=== PATIENT | male | born 1960 | race Caucasian/White ===

== ENCOUNTER → 2020-03-14 | Outpatient (CLI) | payer BC ==
--- NOTE | 2020-03-14 14:07 | Diagnostic Imaging Report ---
INDICATION: Bilateral hip pain. TIME OF EXAM: 12:59 PM Hip joint spaces are fairly well maintained. Femoral acetabular alignment is normal bilaterally. Both femoral heads and necks are intact. Rami are intact. No fractures are seen. IMPRESSION: No acute bony abnormality is detected. Dictated by: Dictated on workstation # [id number]
== END ==
LOC: RAD FS 12:41
PROVIDERS: ATTEND Emergency Medicine
DX: M25.551 Pain in right hip (principal); M25.552 Pain in left hip
CPT/HCPCS: 73521

== ENCOUNTER → 2020-07-15 | Outpatient (CLI) | payer BC ==
[2020-07-15 13:26] LABS: HEMOGLOBIN 12.4 G/DL (13.3-17.7); MEAN CORPUSCULAR HEMOGLOBIN 31 PG (25-34); WHITE BLOOD COUNT 5.3 10^3/uL (4.3-11.0)
[2020-07-15 13:27] LABS: BASOPHILS % (AUTO) 1 % (0-10); EOSINOPHILS # (AUTO) 0.1 10^3/uL (0.0-0.3); EOSINOPHILS % (AUTO) 1 % (0-10); HEMATOCRIT 38 % (40-54); LYMPHOCYTES # (AUTO) 1.1 X 10^3 (1.0-4.0); LYMPHOCYTES % (AUTO) 20 % (12-44); MEAN CORPUSCULAR HGB CONC 33 G/DL (32-36); MEAN CORPUSCULAR VOLUME 95 FL (80-99); MEAN PLATELET VOLUME 10.9 FL (7.4-10.4); MONOCYTES # (AUTO) 0.6 X 10^3 (0.0-1.0); MONOCYTES % (AUTO) 11 % (0-12); NEUTROPHILS # (AUTO) 3.5 X 10^3 (1.8-7.8); NEUTROPHILS % (AUTO) 66 % (42-75); PLATELET COUNT 166 10^3/uL (130-400)
[2020-07-15 14:14] LABS: BUN/CREATININE RATIO 26; CARBON DIOXIDE 21 MMOL/L (21-32); CHLORIDE 103 MMOL/L (98-107); GFR ESTIMATED > 60; POTASSIUM 5.5 MMOL/L (3.6-5.0); SODIUM 137 MMOL/L (135-145)
[2020-07-15 14:15] LABS: ALANINE AMINOTRANSFERASE 27 U/L (0-55); ALBUMIN 4.7 GM/DL (3.2-4.5); ALKALINE PHOSPHATASE 64 U/L (40-136); AMYLASE 26 U/L (25-125); CALCIUM 9.9 MG/DL (8.5-10.1); GLUCOSE 106 MG/DL (70-105); LIPASE 14 U/L (8-78); TOTAL PROTEIN 7.4 GM/DL (6.4-8.2)
== END ==
LOC: RAD FS 12:24
PROVIDERS: ATTEND Emergency Medicine
DX: R11.0 Nausea (principal); R19.7 Diarrhea, unspecified; R10.11 Right upper quadrant pain
CPT/HCPCS: 36415; 80053; 82150; 83690; 85025

== ENCOUNTER 2020-12-23 22:41 | Emergency (ER) | payer BC ==
[~2020-12-23] VITALS: Ht 170.2 cm; Wt 107.5 kg
[2020-12-23] MEDS ORDERED: oxyCODONE/APAP 5/325MG (PERCOCET 5) TABLET ONE (22:57)
[2020-12-23] MEDS ORDERED: ORPHENADRINE 60 MG/2 ML (NORFLEX) AMP (ED ONLY) IM ONE (23:00)
[2020-12-23] MEDS ORDERED: oxyCODONE/APAP 7.5-325 MG (PERCOCET 7.5) TABLET PO ONE (23:00)
--- NOTE | 2020-12-23 23:04 | ED Back Pain ---
General Chief Complaint: Lower Extremity Stated Complaint: HIP PAIN Source of Information: Patient, EMS Exam Limitations: No Limitations History of Present Illness Date Seen by Provider: Dec 23, 2020 Time Seen by Provider: 22:50 Initial Comments Patient is a 60-year-old male who presents to the emergency department today with a chief complaint of posterior right hip pain/low back pain. Patient has had this pain ongoing for the last couple of days. He states it steadily increased. Patient denies any trauma, falls, twisting injuries. He has never had pain quite like this before. 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 Patient reports he is a diabetic has a history of renal failure has a history of hypertension. He states he took one of his postoperative pain pills and it helped "a little". He states he also took a muscle relaxer but cannot quite seem to get comfortable. Patient states he was not able to sleep last night because of the pain. He states he has a little bit of an ache in his right knee. But the pain does not seem to radiate down his leg to his foot. No problems with numbness in his groin. No falls no weakness in his right leg. Patient states that his urine has been all out of whack in recent days. He did have urinary tract infection several weeks ago and he states that his urine continues to have a foul smell. He denies dysuria, urgency or frequency. Patient states he also took a little Tylenol for his hip but it has not really helped either. All other review of systems reviewed and negative except as stated. Location: Other (lower lumbar, right posterior hip) Timing/Duration: 2-3 Days Severity: Severe Pain/Injury Location: Back Radiation: Other (right knee) Associated Symptoms: muscle spasms Allergies and Home Medications Allergies Coded Allergies: prochlorperazine (Verified Allergy, Unknown, 12/23/20) Home Medications Cyclobenzaprine HCl 10 Mg Tablet, 10 MG PO TID PRN for muscle spasm Prescribed by: JULIETA JOHNSON on 12/24/20 0027 Oxycodone HCl/Acetaminophen 1 Each Tablet, 1 TAB PO Q6H PRN for PAIN-MODERATE Prescribed by: JULIETA JOHNSON on 12/24/20 0028 Patient Home Medication List Home Medication List Reviewed: Yes Review of Systems Constitutional: no symptoms reported EENTM: no symptoms reported Respiratory: no symptoms reported Cardiovascular: no symptoms reported Gastrointestinal: no symptoms reported, other (post operative discomfort) Genitourinary: other (foul smelling urine) Musculoskeletal: other (posterior right hip pain) Skin: no symptoms reported Psychiatric/Neurological: No Symptoms Reported All Other Systems Reviewed Negative Unless Noted: Yes Physical Exam Vital Signs Capillary Refill : Height, Weight, BMI Height: '" Weight: lbs. oz. kg; BMI Method: General Appearance: WD/WN, Anxious, Moderate Distress HEENT: PERRL/EOMI Neck: Normal Inspection Cardiovascular: Regular Rate, Rhythm Respiratory: No Accessory Muscle Use, No Respiratory Distress Gastrointestinal: Soft, Tenderness (diffuse mild tenderness to palpation) Back: No Vertebral Tenderness Extremity: Normal Inspection, Normal Range of Motion, No Pedal Edema, Other (Patient has tenderness to palpation around the posterior superior iliac crest as well as over the sciatic nerve of the right hip. Patient has good range of motion to the right lower extremity without significant pain. No pain over the trochanter of the right hip. He has intact sensation and circulation to the right lower extremity. Normal dorsiflexion and plantarflexion of the right foot. DTRs were difficult to obtain in the right leg secondary to apprehension) Neurologic/Psychiatric: Alert, Oriented x3, No Motor/Sensory Deficits, Normal Mood/Affect Progress/Results/Core Measures Results/Orders Lab Results Laboratory Tests Test 12/23/20 23:07 Range/Units Glucometer 204 H 70-110 MG/DL My Orders Orders - JULIETA JOHNSON MD Orphenadrine Inj (Ed Only) (Norflex Inje (12/23/20 23:00) Oxycodone/Apap 7.5/325mg Tab (Percocet (12/23/20 23:00) Accucheck Stat ONCE (12/23/20 22:54) Ua Culture If Indicated (12/23/20 22:54) Oxycodone/Apap 5/325mg Tablet (Percocet (12/23/20 22:57) Oxycodone/Apap 5/325mg Tablet (Percocet (12/23/20 23:15) Rx-Oxycodone/Apap 5-325 Mg (Rx-Percocet (12/24/20 00:30) Medications Given in ED Current Medications Medications Dose Ordered Sig/Rosa Elena Route Start Time Stop Time Status Last Admin Dose Admin Orphenadrine Citrate 60 mg ONCE ONCE IM 12/23/20 23:00 12/23/20 23:01 DC 12/23/20 23:10 60 MG Oxycodone/ Acetaminophen 1 tab STK-MED ONCE .ROUTE 12/23/20 22:57 12/23/20 23:03 DC 12/23/20 23:11 2 TAB Progress Progress Note : Time: 00:23 Progress Note Patient reevaluated after medications and feels much better. I will not give him steroids at this time secondary to his diabetes and his hyperglycemia this evening. I have recommended that the patient use hksp-fqm-lxfsgtz pain patches as well as a heating pad. We will send him home with a prescription for pain medicine as well as some muscle relaxers. I have advised him to have close follow-up with his primary care physician, Dr. JOHNSON. He verbalizes understanding. All questions have been sought and answered. Urinalysis is still pending. Departure Impression Primary Impression: Sciatica of right side Disposition: 01 HOME, SELF-CARE Condition: Stable (ERASED) Departure-Patient Inst. Decision time for Depature: 00:24 Referrals: RYLEY JOHNSON DO (PCP/Family) Primary Care Physician Patient Instructions: Sciatica Exercises Add. Discharge Instructions: Take the pain medication as prescribed every 4-6 hours for pain. You can also take the muscle relaxers as prescribed every 8 hours as needed for muscle spasms and pain. Use qyqh-ace-upcihrs pain patches as needed as well and as directed on the package. Heating pads will also help this area. Follow-up with your primary care physician. . Scripts Cyclobenzaprine HCl (Cyclobenzaprine HCl) 10 Mg Tablet 10 MG PO TID PRN for muscle spasm, #12 TAB Prov: JULIETA JOHNSON MD 12/24/20 Oxycodone HCl/Acetaminophen (Percocet 7.5-325 mg Tablet) 1 Each Tablet 1 TAB PO Q6H PRN for PAIN-MODERATE MDD 4 TABS for 7 Days, #15 TAB Prov: JULIETA JOHNSON MD 12/24/20 JULIETA JOHNSON MD Dec 23, 2020 23:04
[2020-12-23] MEDS ORDERED: oxyCODONE/APAP 5/325MG (PERCOCET 5) TABLET PO ONE (23:15)
[2020-12-24] MEDS ORDERED: OXYC1TAB16 PO (00:27)
[2020-12-24] MEDS ORDERED: CYCL10TA9 PO (00:27)
[2020-12-24] MEDS ORDERED: RX-OXYCODONE/APAP 5-325 MG #4 TAB PK PO PRN (00:30)
[2020-12-24 01:40] VITALS: BP 146/70
[2020-12-24 15:51] LABS: CLARITY,URINE SLIGHTLY CLOUDY; COLOR,URINE ORANGE; GLUCOSE, URINE (UA) NEGATIVE (NEGATIVE); KETONES,URINE TRACE (NEGATIVE); NITRITE,URINE NEGATIVE (NEGATIVE); PROTEIN,URINE 1+ (NEGATIVE)
[2020-12-24 15:52] LABS: BACTERIA,URINE MODERATE /HPF; BILIRUBIN,URINE 1+ (NEGATIVE); GRANULAR CASTS,URINE 0-2 /LPF; LEUKOCYTE ESTERASE ,URINE NEGATIVE (NEGATIVE); RBC,URINE 0-2 /HPF
== END 2020-12-24 01:40 | disposition home or self-care (01) ==
LOC: EDUNIT# 22:41 → ER FS 22:42
DX: M54.41 Lumbago with sciatica, right side (principal); E11.649 Type 2 diabetes mellitus with hypoglycemia without coma; I10 Essential (primary) hypertension; Z88.8 Allergy status to other drugs, medicaments and biological substances
CPT/HCPCS: 81000; 82962; 87088

== ENCOUNTER → 2020-12-24 | Outpatient (CLI) | payer BC ==
[~2020-12-24] MED LIST: CYCL10TA9 PO; OXYC1TAB16 PO
== END ==
LOC: LAB FS 15:38
PROVIDERS: ATTEND Registered Nurse
DX: R30.0 Dysuria (principal)

== ENCOUNTER → 2021-04-27 | Outpatient (CLI) | payer BC ==
[2021-04-27 17:43] LABS: POTASSIUM 4.3 MMOL/L (3.6-5.0)
[2021-04-27 17:44] LABS: CALCIUM 8.4 MG/DL (8.5-10.1)
[2021-04-27 17:48] LABS: CREATININE SERUM 0.67 MG/DL (0.60-1.30)
== END ==
LOC: LABNPT 17:16
PROVIDERS: ATTEND Urology
DX: K65.1 Peritoneal abscess (principal)
CPT/HCPCS: 80048

== ENCOUNTER 2021-05-15 12:42 | Inpatient (IN) | payer BC ==
[2021-05-15] VITALS (7 sets, daily range): BP systolic 111–152; BP diastolic 60–79
[~2021-05-15] VITALS: Ht 170 cm; Wt 79.1 kg
[2021-05-15] MEDS ORDERED: PIPERACILLIN SODIUM/TAZOBACTAM 4.5 GM in NS (IVPB) 100 ML IV ONE (13:00)
--- NOTE | 2021-05-15 13:15 | Diagnostic Imaging Report ---
Indication: Shortness of breath. The patient is COVID 19 positive. No prior studies are available for comparison. There are changes of median sternotomy. Right upper extremity PICC line has tip overlying SVC. There is a moderate left pleural effusion. There appears to be some infiltrate in both bases. Upper lung miller are clear. No pneumothorax is seen. IMPRESSION: Moderate left-sided pleural effusion with bibasilar pulmonary infiltrates or atelectasis. Report was faxed to [facility] Infection Control by terri at 1:15PM. Dictated by: Dictated on workstation # [id number]
--- NOTE | 2021-05-15 13:40 | ED Respiratory ---
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 The patient states he was having an elective procedure on 05 May, and had a Covid test done while asymptomatic at that time, and this test was positive. Since then he has been feeling more more short of breath with coughing. Reportedly his oxygen sat uration was then the 60s to 70s. EMS placed him on a nonrebreather and give him a DuoNeb with improvement in his oxygen saturation to the 90s. He denies any personal history of blood clots in his legs or lungs. He is otherwise denying any other acute complaints. Of note, he gets his care from Dr. Rodrigues at [facility] in . He has a PICC line in place and says he gets two "antibiotics" multiple times a day with one of them being Micafungin. Allergies and Home Medications Allergies Coded Allergies: prochlorperazine (Verified Allergy, Unknown, 12/23/20) Patient Home Medication List Home Medication List Reviewed: Yes Review of Systems Review of Systems Constitutional: chills EENTM: No blurred vision Respiratory: cough, short of breath Cardiovascular: No chest pain Gastrointestinal: No abdominal pain, No diarrhea, No nausea, No vomiting Genitourinary: No dysuria Musculoskeletal: No back pain Skin: No rash Psychiatric/Neurological: Denies Anxiety, Denies Depressed Hematologic/Lymphatic: No Symptoms Reported Immunological/Allergic: no symptoms reported All Other Systems Reviewed Negative Unless Noted: Yes Past Dpbpliy-Yfyurd-Bqcvaz Hx Patient Social History Tobacco Use?: No Seasonal Allergies Seasonal Allergies: No Past Medical History Surgeries: Yes Abdominal, Appendectomy, CABG Respiratory: No Cardiac: Yes Hypertension Neurological: No Genitourinary: No Gastrointestinal: Yes Pancreatitis Musculoskeletal: No Endocrine: Yes Diabetes, Insulin dep HEENT: No Cancer: No Psychosocial: No Integumentary: No Blood Disorders: No Physical Exam Vital Signs - First Documented 05/15/21 12:45 Temp 36.8 Pulse 104 Resp 48 B/P (MAP) 128/71 (90) Pulse Ox 97 O2 Delivery OxyMask O2 Flow Rate 6.00 Capillary Refill : Height: '" Weight: lbs. oz. kg; 37.00 BMI Method: General Appearance: WD/WN, moderate distress HEENT: PERRL/EOMI, normal ENT inspection, pharynx normal Neck: non-tender, full range of motion, supple, normal inspection Respiratory: chest non-tender, respiratory distress, crackles, other (Tachypnea and accessory muscle use) Cardiovascular: no edema, no murmur, tachycardia Gastrointestinal: normal bowel sounds, non tender, soft; No guarding, No rebound Extremities: normal range of motion, non-tender, normal inspection, no pedal edema, no calf tenderness Neurologic/Psychiatric: no motor/sensory deficits, alert, normal mood/affect, oriented x 3 Skin: normal color, warm/dry Lymphatic: no adenopathy Focused Exam Lactate Level 05/15/21 13:15: Lactic Acid Level 2.03*H 05/15/21 15:50: Lactic Acid Level 2.12*H Lactic Acid Level Laboratory Tests Test 05/15/21 13:15 05/15/21 15:50 Lactic Acid Level 2.03 MMOL/L (0.50-2.00) *H 2.12 MMOL/L (0.50-2.00) *H Progress/Results/Core Measures Suspected Sepsis SIRS Temperature: Pulse: Respiratory Rate: Laboratory Tests 05/15/21 13:15: White Blood Count 8.0 Blood Pressure / Mean: 05/15/21 13:15: Lactic Acid Level 2.03*H 05/15/21 15:50: Lactic Acid Level 2.12*H Laboratory Tests 05/15/21 13:15: Creatinine 0.60, Platelet Count 371, Total Bilirubin 1.0 05/15/21 13:38: INR Comment 1.2 Results/Orders Lab Results Laboratory Tests Test 05/15/21 13:15 05/15/21 13:38 05/15/21 15:50 Range/Units White Blood Count 8.0 4.3-11.0 10^3/uL Red Blood Count 4.26 L 4.30-5.52 10^6/uL Hemoglobin 11.9 L 13.3-17.7 g/dL Hematocrit 36 L 40-54 % Mean Corpuscular Volume 85 80-99 fL Mean Corpuscular Hemoglobin 28 25-34 pg Mean Corpuscular Hemoglobin Concent 33 32-36 g/dL Red Cell Distribution Width 15.2 H 10.0-14.5 % Platelet Count 371 130-400 10^3/uL Mean Platelet Volume 11.4 9.0-12.2 fL Immature Granulocyte % (Auto) 0 % Neutrophils (%) (Auto) 85 H 42-75 % Lymphocytes (%) (Auto) 10 L 12-44 % Monocytes (%) (Auto) 5 0-12 % Eosinophils (%) (Auto) 0 0-10 % Basophils (%) (Auto) 0 0-10 % Neutrophils # (Auto) 6.8 1.8-7.8 X 10^3 Lymphocytes # (Auto) 0.8 L 1.0-4.0 X 10^3 Monocytes # (Auto) 0.4 0.0-1.0 X 10^3 Eosinophils # (Auto) 0.0 0.0-0.3 10^3/uL Basophils # (Auto) 0.0 0.0-0.1 10^3/uL Immature Granulocyte # (Auto) 0.0 0.0-0.1 10^3/uL Sodium Level 132 L 135-145 MMOL/L Potassium Level 3.3 L 3.6-5.0 MMOL/L Chloride Level 97 L 98-107 MMOL/L Carbon Dioxide Level 19 L 21-32 MMOL/L Anion Gap 16 H 5-14 MMOL/L Blood Urea Nitrogen 14 7-18 MG/DL Creatinine 0.60 0.60-1.30 MG/DL Estimat Glomerular Filtration Rate 137 BUN/Creatinine Ratio 23 Glucose Level 206 H 70-105 MG/DL Lactic Acid Level 2.03 *H 2.12 *H 0.50-2.00 MMOL/L Calcium Level 8.4 L 8.5-10.1 MG/DL Corrected Calcium 9.2 8.5-10.1 MG/DL Total Bilirubin 1.0 0.1-1.0 MG/DL Aspartate Amino Transf (AST/SGOT) 109 H 5-34 U/L Alanine Aminotransferase (ALT/SGPT) 79 H 0-55 U/L Alkaline Phosphatase 156 H 40-136 U/L Lactate Dehydrogenase 771 H 125-220 U/L Troponin I < 0.30 <0.30 NG/ML C-Reactive Protein 9.13 H <0.50 MG/DL Pro-B-Type Natriuretic Peptide 4074.0 H <75.0 PG/ML Total Protein 6.8 6.4-8.2 GM/DL Albumin 3.0 L 3.2-4.5 GM/DL Prothrombin Time 15.4 H 12.2-14.7 SEC INR Comment 1.2 0.8-1.4 Activated Partial Thromboplast Time 34 24-35 SEC D-Dimer 4.45 H 0.00-0.49 UG/ML My Orders Orders - CLIVE LIRIANO MD Cbc With Automated Diff (05/15/21 12:55) Comprehensive Metabolic Panel (05/15/21 12:55) Blood Culture (05/15/21 12:55) Protime With Inr (05/15/21 12:55) Partial Thromboplastin Time (05/15/21 12:55) Chest 1 View Ap/Pa Only (05/15/21 12:55) Ed Iv/Invasive Line Start (05/15/21 12:55) Ed Iv/Invasive Line Start (05/15/21 12:55) Vital Signs Adult Sepsis Patie Q15M (05/15/21 12:55) O2 (05/15/21 12:55) Lactic Acid Analyzer (05/15/21 12:55) Piperacillin Sodium/Tazobactam (Zosyn Vi (05/15/21 13:00) Vital Signs: Every 4 Hours (Or (05/15/21 12:55) Monitor-Rhythm Ecg Trace Only (05/15/21 12:55) Ferritin (05/15/21 12:55) LDH (05/15/21 12:55) Crp Fs (05/15/21 12:55) Troponin I Fs (05/15/21 12:55) Fibrin Degradation Products (05/15/21 12:55) Ekg Tracing (05/15/21 12:55) Probnp Fs (05/15/21 12:55) Covid-19 External Lab Results (05/15/21 13:56) Ct Angio Chest W (05/15/21 14:28) Iohexol Injection (Omnipaque 350 Mg/Ml 1 (05/15/21 14:45) Received Contrast (Hold Metformin- Contr (05/15/21 14:45) Sodium Chloride Flush (Catheter Flush Sy (05/15/21 14:45) Ns (Ivpb) (Sodium Chloride 0.9% Ivpb Bag (05/15/21 14:45) Dexamethasone Injection (Decadron Injec (05/15/21 16:30) Medications Given in ED Current Medications Medications Dose Ordered Sig/Rosa Elena Route Start Time Stop Time Status Last Admin Dose Admin Dexamethasone Sodium Phosphate 6 mg ONCE ONCE IV 05/15/21 16:30 05/15/21 16:31 DC 05/15/21 16:48 6 MG Iohexol 125 ml ONCE ONCE IV 05/15/21 14:45 05/15/21 14:46 DC 05/15/21 15:20 125 ML Piperacillin Sod/ Tazobactam Sod 4.5 gm/Sodium Chloride 100 ml @ 200 mls/hr ONCE ONCE IV 05/15/21 13:00 05/15/21 13:29 DC 05/15/21 13:47 200 MLS/HR Sodium Chloride 10 ml NEEDED PRN IV 05/15/21 14:45 05/15/21 15:21 10 ML Sodium Chloride 100 ml ONCE ONCE IV 05/15/21 14:45 05/15/21 14:46 DC 05/15/21 15:21 100 ML Vital Signs/I&O 05/15/21 05/15/21 12:45 12:45 Temp 36.8 Pulse 104 Resp 48 B/P (MAP) 128/71 (90) Pulse Ox 97 97 O2 Delivery OxyMask OxyMask O2 Flow Rate 6.00 8.00 Capillary Refill : Progress Note : Progress Note 61-year-old male with above history coming in in respiratory distress. The patient was very tachypneic and hypoxic on presentation. He had received a DuoNeb via EMS prior to arrival. He came in on 8 L oxygen, and we were able to titrate him down to 6 L. He says he wears a baseline 2 L at home. Crackles in all lung miller which all sounds consistent with Covid pneumonia. Labs with hemoglobin around 11, normal creatinine, elevated glucose consistent with his diabetes, negative troponin, elevated D-dimer. CTA ordered and was negative for PE. He does have findings consistent with Covid as well as a small left pleural effusion. He was given Zosyn initially on arrival given his complicated abdominal history as well as his significant tachycardia. Heart rate came down with oxygen and rest. He does look euvolemic on my exam, and I am concerned if we were to give him IV fluids he would decompensate from a respiratory standpoint. I do not believe he requires bolus of fluids at this time, and I do believe that would be counterproductive to his care. Discussed this case with multiple hospitals, and ultimately he will be admitted to [facility] in [place] and inpatient status after discussion with Dr. Powell. Of note, he gets his home health care at [facility]. ECG Initial ECG Impression Date: May 15, 2021 Initial ECG Impression Time: 12:52 Initial ECG Rate: 115 Initial ECG Rhythm: A Fib/Flutter Comment Atrial fibrillation with a rate of 115, narrow QRS, normal axis, baseline wander in all leads, with that said, no ST elevation that would be concerning for STEMI Diagnostic Imaging Diagonstic Imaging: Xray, CT Plain Films/CT/US/NM/MRI: chest Comments [facility], [place] NAME: NIKHIL PATRICK [facility] REC#: [id number] PT STATUS: REG ER : 1960 PHYSICIAN: CLIVE LIRIANO MD ADMIT DATE: 05/15/21/ER FS Draft Date of Exam:05/15/21 CHEST 1 VIEW AP/PA ONLY Indication: Shortness of breath. The patient is COVID 19 positive. No prior studies are available for comparison. There are changes of median sternotomy. Right upper extremity PICC line has tip overlying SVC. There is a moderate left pleural effusion. There appears to be some infiltrate in both bases. Upper lung miller are clear. No pneumothorax is seen. IMPRESSION: Moderate left-sided pleural effusion with bibasilar pulmonary infiltrates or atelectasis. Report was faxed to [facility] by jean pierre at 1:15PM. Dictated on workstation # [id number] Dict: 05/15/21 1311 Trans: 05/15/21 1315 JEAN PIERRE [id number] Interpreted by: KATHY TEE MD Electronically signed by: [facility] [employer] [place] [place] NAME: NIKHIL PATRICK [facility] REC#: [id number] PT STATUS: REG ER : 1960 PHYSICIAN: CLIVE LIRIANO MD ADMIT DATE: 05/15/21/ER FS Draft Date of Exam:05/15/21 CT ANGIO CHEST W INDICATION: Hypoxia and elevated D-dimer. TECHNIQUE: Multiple contiguous axial images were obtained through the chest after uneventful bolus administration of intravenous contrast. 3D reconstructed CTA MIP acquisitions were also performed. Auto Exposure Controls were utilized during the CT exam to meet ALARA standards for radiation dose reduction. COMPARISON: There is no prior CTA for comparison. FINDINGS: The pulmonary parenchymal vessels are well opacified with no CT evidence of pulmonary emboli. Patient has had previous coronary bypass. The thoracic aorta shows no evidence of aneurysm or dissection. There is minor plaquing in the thoracic aorta. Great vessel origins are patent and without stenosis. The mediastinum and caesar show no definite adenopathy. There is no overt axillary adenopathy or chest wall lesion. There is a jupiirgj-dg-djsnn left pleural effusion. There is no significant right pleural fluid or pericardial fluid. Lung parenchymal windows demonstrate extensive alveolar and groundglass infiltrates in both lungs. IMPRESSION: No CT evidence of pulmonary emboli or aortic dissection or aneurysm. Extensive alveolar and groundglass infiltrates are present, suspicious for pneumonia, COVID-19 is in the differential. There is a xwcoboow-uc-qvqlz left pleural effusion. Dictated on workstation # [id number] Dict: 05/15/21 1534 Trans: 05/15/21 1545 [id number] Interpreted by: PAUL KESSLER MD Electronically signed by: Critical Care Note Critical Care Start Time: 16:05 Stop Time: 17:00 Total Time (minutes) 55 Progress The patient arrived in respiratory distress requiring greater than 6 L oxygen, was tachycardic greater than 120s, and was at significant risk for hemodynamic compromise as well as respiratory compromise. I frequently reassessed the patient over the course of his stay of many hours, talked with greater than 10 hospitalist with physicians trying to transfer him, and did a significant amount of chart review for him as well. Departure Impression Primary Impression: COVID-19 Additional Impression: Respiratory failure Qualified Codes: J96.01 - Acute respiratory failure with hypoxia Disposition: 30 STILL A PATIENT Condition: Stable Admissions Decision to Admit/Date: May 15, 2021 Time/Decision to Admit Time: 16:00 Transfer Transfer Progress Notes Called [facility] transfer center at 14:50 as the patient's doctors are all there. Discussed case with Dr. Renan Smalls at [facility] at 15:35. They are now looking to see if they can free up a bed for transfer. 16:05 call back from [facility] and they do not have any beds 16:08 Called [facility] and [facility], no beds. 16:09 Called [facility] and only accepting Trauma/stroke/STEMI at this time 16:15 Called transfer center, they are reviewing his case, call back at 16:31 denied due to capacity 16:30 Called [facility] Transfer line and all facilities in [place] area at capacity and unable to accept. 16:[address] Powell at [facility]. We discussed that the patient has had a whipple and is still taking antibiotics/antifungals for some infection that they potentially would not be able to manage if he worsens from that standpoint. Given his abdominal issues seem chronic and stable, with COVID being his acute issue right now, he was agreeable to taking the transfer. I discussed with the patient that if he decompensates from a standpoint related to his whipple/abdominal history, then they would need to transfer him from the hospital. Transferring him would be very difficult right now with how all hospitals are full, and he could even waiting for higher level of care. He was agreeable to this as COVID seems to be his issue needing admitted currently. Patient departed at 17:45 Method of Transfer: EMS Departure-Patient Inst. Referrals: RYLEY JOHNSON DO (PCP/Family) Primary Care Physician CLIVE LIRIANO MD May 15, 2021 13:39
[2021-05-15 13:51] LABS: EOSINOPHILS % (AUTO) 0 % (0-10); HEMATOCRIT 36 % (40-54); HEMOGLOBIN 11.9 g/dL (13.3-17.7); LYMPHOCYTES % (AUTO) 10 % (12-44); MEAN CORPUSCULAR HEMOGLOBIN 28 pg (25-34); MEAN CORPUSCULAR HGB CONC 33 g/dL (32-36); MEAN CORPUSCULAR VOLUME 85 fL (80-99); MEAN PLATELET VOLUME 11.4 fL (9.0-12.2); MONOCYTES % (AUTO) 5 % (0-12); NEUTROPHILS % (AUTO) 85 % (42-75); PLATELET COUNT 371 10^3/uL (130-400)
[2021-05-15 13:52] LABS: BASOPHILS % (AUTO) 0 % (0-10); LYMPHOCYTES # (AUTO) 0.8 X 10^3 (1.0-4.0); MONOCYTES # (AUTO) 0.4 X 10^3 (0.0-1.0); NEUTROPHILS # (AUTO) 6.8 X 10^3 (1.8-7.8)
[2021-05-15 14:10] LABS: ALANINE AMINOTRANSFERASE 79 U/L (0-55); ALKALINE PHOSPHATASE 156 U/L (40-136); BUN/CREATININE RATIO 23; CALCIUM 8.4 MG/DL (8.5-10.1); CARBON DIOXIDE 19 MMOL/L (21-32); CHLORIDE 97 MMOL/L (98-107); GFR ESTIMATED 137; GLUCOSE 206 MG/DL (70-105); POTASSIUM 3.3 MMOL/L (3.6-5.0); SODIUM 132 MMOL/L (135-145)
[2021-05-15 14:11] LABS: TOTAL PROTEIN 6.8 GM/DL (6.4-8.2)
[2021-05-15 14:21] LABS: FIBRIN DEGRADATION PRODUCTS 4.45 UG/ML (0.00-0.49); INR 1.2 (0.8-1.4); PROTHROMBIN TIME PATIENT 15.4 SEC (12.2-14.7)
[2021-05-15] MEDS ORDERED: CATHETER FLUSH 10 ML SYR IV PRN ×2 (14:45→19:00)
[2021-05-15] MEDS ORDERED: NS 100 ML (IVPB) BAG IV ONE (14:45)
[2021-05-15] MEDS ORDERED: HOLD METFORMIN - RECEIVED CONTRAST 20 ML VIAL IV SCH (14:45)
[2021-05-15] MEDS ORDERED: IOHEXOL 350 MG/ML 150 ML (OMNIPAQUE 350) VIAL IV ONE (14:45)
--- NOTE | 2021-05-15 15:45 | Diagnostic Imaging Report ---
INDICATION: Hypoxia and elevated D-dimer. TECHNIQUE: Multiple contiguous axial images were obtained through the chest after uneventful bolus administration of intravenous contrast. 3D reconstructed CTA MIP acquisitions were also performed. Auto Exposure Controls were utilized during the CT exam to meet ALARA standards for radiation dose reduction. COMPARISON: There is no prior CTA for comparison. FINDINGS: The pulmonary parenchymal vessels are well opacified with no CT evidence of pulmonary emboli. Patient has had previous coronary bypass. The thoracic aorta shows no evidence of aneurysm or dissection. There is minor plaquing in the thoracic aorta. Great vessel origins are patent and without stenosis. The mediastinum and caesar show no definite adenopathy. There is no overt axillary adenopathy or chest wall lesion. There is a eonywdws-kt-kxgyw left pleural effusion. There is no significant right pleural fluid or pericardial fluid. Lung parenchymal windows demonstrate extensive alveolar and groundglass infiltrates in both lungs. IMPRESSION: No CT evidence of pulmonary emboli or aortic dissection or aneurysm. Extensive alveolar and groundglass infiltrates are present, suspicious for pneumonia, COVID-19 is in the differential. There is a uzfpnndb-ag-nrira left pleural effusion. Dictated by: Dictated on workstation # [id number]
[2021-05-15] MEDS ORDERED: AMLO-251 PO (16:18)
[2021-05-15] MEDS ORDERED: GLIP5TAB13 PO (16:18)
[2021-05-15] MEDS ORDERED: ACHD5005 (16:18)
[2021-05-15] MEDS ORDERED: APIX5TAB PO (16:18)
[2021-05-15] MEDS ORDERED: MTP25TSR PO (16:18)
[2021-05-15] MEDS ORDERED: SOTA120T PO (16:18)
[2021-05-15] MEDS ORDERED: ATOR40TA70 PO (16:18)
[2021-05-15] MEDS ORDERED: ACETAMINOPHEN 650 MG SUPP (TYLENOL) PR PRN (19:00)
[2021-05-15] MEDS ORDERED: guaiFENesin SYRUP 100 MG/5 ML 10 ML (ROBITUSSIN SF) PO PRN (19:00)
[2021-05-15] MEDS ORDERED: ONDANSETRON 4 MG (ZOFRAN) ORAL DISSOLVE TAB PO PRN (19:00)
[2021-05-15] MEDS ORDERED: ACETAMINOPHEN 325 MG TABLET PO PRN (19:00)
[2021-05-15] MEDS ORDERED: ONDANSETRON 4 MG/2 ML (SDV) Z0FRAN IV PRN (19:00)
[2021-05-15] MEDS ORDERED: RT-ALBUTEROL HFA 8.5 GM INHALER IH PRN (19:15)
[2021-05-15] MEDS ORDERED: VANCOMYCIN 2000 MG/NS 500 ML IVPB IV NR ×2 (19:30)
[2021-05-15 19:36] LABS: ABG BASE EXCESS -3.5 MMOL/L (-2.5-2.5); ABG OXYGEN SATURATION 97 % (94-100); ABG PCO2 25 MMHG (35-45); ABG PH 7.51 (7.37-7.43); ABG PO2 96 MMHG (79-93); ABG TCO2 19.9 MMOL/L (21.0-31.0)
[2021-05-15 19:46] LABS: ALLENS TEST YES-POS; INSPIRED O2 80%; PATIENT TEMP 99.1; VENTILATOR NO
[2021-05-15] MEDS ORDERED: ANIDULAFUNGIN 200 MG/NS 250 ML IVPB IV NR ×2 (20:00)
--- NOTE | 2021-05-15 20:33 | Tele-ICU Consult ---
History of Present Illness History of Present Illness Date Seen by Provider: May 15, 2021 Time Seen by Provider: 20:00 Date of Admission This virtual visit was conducted using real time audio/video. Thank you for asking us to see this patient for respiratory insufficiency and distress due to B Covid pna. In afib in ER. HPC: Recent events: Presented to ER w distress, hypoxia PMH: S/P Whipple, chronic resp fail on 2 LPM O2, cause unknown, DM, pancreatitis, htn, PICC line for outpt. abx. SH: smoking history: denies. FH: Non-contributory ROS: limited by patient's clinical condition PE: VSS HR 85 NSR BP 115/70 RR 32 O2 sat 93% on BiPAP 20/10 80%. HEENT: No obvious masses, adenopathy or JVD. Chest: coarse BS CV: RRR S1 S2 No murmur or added sounds. Abd: Non-tender. Bowel sounds Y. : Unremarkable. Perea Y. INTERACTIVE ACCOUNT MANAGER/psychiatric: No obvious focal findings. Extremities:No edema. Capillary refill < 3 seconds. Skin: unremarkable. Results: Elevated D-Dimer 4.45, Lactate 2.12. Decreased Na 132, K 3.3, Hb 11.9. CXR and CTC w B infilts. large L pl. effusion. A/P: Respiratory insufficiency/distress: Cont BiPAP, duonebs. Available chart/ vitals / labs / images reviewed. Video assessment done using teleICU camera, rest of exam as per RN. Monitor for increasing oxygenation needs and/or need for intubation. Critical Care: critically ill patient w Covid. Cont ABX, anti-fungal, Decadron. Discussed with SUNIL Mixon. Asked RN to reach out to eICU if any questions or concerns later. Time spent with patient/coordination of care with other health professionals (mins): 31 Allergies and Home Medications Allergies Coded Allergies: prochlorperazine (Verified Allergy, Unknown, 12/23/20) Past Medical/Social/Family Hx Patient Social History Tobacco Use?: No Smoking Status: Former Smoker Use of E-Cig and/or Vaping dev: No Substance use?: No Alcohol Use?: No Pt stated abuse/neglect: No Current Status Advance Directives: No Communicates: Verbally Primary Language: Kinyarwanda Preferred Spoken Language: Kinyarwanda Is interpretation needed?: No Review of Systems Constitutional: no symptoms reported Sepsis Event Evaluation Height, Weight, BMI Height: '" Weight: lbs. oz. kg; 32.00 BMI Method: Exam Exam Patient acknowledged, consented, and participated in this virtual visit which was conducted using real time audio/video Vital Signs Date Time Temp Pulse Resp B/P (MAP) Pulse Ox O2 Delivery O2 Flow Rate FiO2 05/15/21 19:15 94 NIV Bilevel 80 05/15/21 19:11 36.8 104 97 05/15/21 18:49 92 49 95 80.00 80.00 05/15/21 18:41 37.6 98 40 152/79 (103) 78 OxyMask 4.00 05/15/21 17:35 36.4 96 44 134/65 94 OxyMask 4.00 05/15/21 12:45 36.8 104 48 128/71 (90) 97 OxyMask 8.00 05/15/21 12:45 97 OxyMask 6.00 Height & Weight Height: '" Weight: lbs. oz. kg; 32.00 BMI Method: General Appearance: Moderate Distress Capillary Refill: Less Than 3 Seconds Gastrointestinal: normal bowel sounds, non tender, soft; No guarding, No rebound Results Lab Laboratory Tests 05/15/21 13:15 Assessment/Plan Assessment/Plan See free text. Critical Care: Critically Ill Patient Time spent on discussion(mins): 0 RODGER VERDUGO MD May 15, 2021 20:33
[2021-05-15 21:20] LABS: BILIRUBIN,URINE NEGATIVE (NEGATIVE); CLARITY,URINE CLEAR; COLOR,URINE YELLOW; GLUCOSE, URINE (UA) NEGATIVE (NEGATIVE); KETONES,URINE 1+ (NEGATIVE); LEUKOCYTE ESTERASE ,URINE NEGATIVE (NEGATIVE); NITRITE,URINE NEGATIVE (NEGATIVE); PH,URINE 5.5 (5-9); PROTEIN,URINE 3+ (NEGATIVE)
[2021-05-15 21:28] LABS: RBC,URINE 0-2 /HPF
[2021-05-15 21:29] LABS: AMORPHOUS SEDIMENT,UR RARE AMOR URATES /LPF; BACTERIA,URINE TRACE /HPF
[2021-05-15] MEDS: RT-ALBUTEROL HFA 8.5 GM INHALER IH SCH (21:32)
[2021-05-15] MEDS: PIPERACILLIN/TAZO 4.5 GM/NS 100 ML IV SCH ×2 (21:57)
[2021-05-15] MEDS: SOTALOL 80 MG (BETAPACE) TAB PO SCH (21:57)
[2021-05-15] MEDS: APIXABAN 5 MG (ELIQUIS) TABLET PO SCH (21:58)
[2021-05-15] MEDS: inSUlin ASPART (NovoLOG) 1 UNIT/0.01 ML (CHARGE PER UNIT) SC SCH (21:59)
[2021-05-15] MEDS: CATHETER FLUSH 10 ML SYR IV SCH (21:59)
[2021-05-15] MEDS ORDERED: ENOXAPARIN 40 MG/0.4 ML (LOVENOX) SYR SC SCH (22:45)
[2021-05-15] MEDS ORDERED: ENOXAPARIN 40 MG/0.4 ML (LOVENOX) SYR ONE (22:52)
[2021-05-15] MEDS ORDERED: POTASSIUM CL 10MEQ/50ML IVPB 200 ML IV ONE (22:52)
[2021-05-15] MEDS: POTASSIUM CL 10MEQ/50ML IVPB 50 ML IV SCH ×2 (23:07→23:09)
[2021-05-16] VITALS (12 sets, daily range): BP systolic 93–115; BP diastolic 62–77
[2021-05-16] MEDS: POTASSIUM CL 10MEQ/50ML IVPB 50 ML IV SCH ×2 (00:11→04:46)
[2021-05-16] MEDS: RT-ALBUTEROL HFA 8.5 GM INHALER IH SCH ×6 (02:14→22:09)
[2021-05-16] MEDS ORDERED: FUROSEMIDE 40 MG/4 ML INJ (LASIX) IVP ONE (02:45)
[2021-05-16] MEDS: PIPERACILLIN/TAZO 4.5 GM/NS 100 ML IV SCH ×6 (04:00→20:04)
[2021-05-16 04:23] LABS: BASOPHILS % (AUTO) 0 % (0-10); EOSINOPHILS % (AUTO) 0 % (0-10); HEMATOCRIT 35 % (40-54); HEMOGLOBIN 10.8 g/dL (13.3-17.7); LYMPHOCYTES # (AUTO) 0.6 10^3/uL (1.0-4.0); LYMPHOCYTES % (AUTO) 7 % (12-44); MEAN CORPUSCULAR HEMOGLOBIN 27 pg (25-34); MEAN CORPUSCULAR HGB CONC 31 g/dL (32-36); MEAN CORPUSCULAR VOLUME 88 fL (80-99); MEAN PLATELET VOLUME 11.5 fL (9.0-12.2); MONOCYTES # (AUTO) 0.7 10^3/uL (0.0-1.0); MONOCYTES % (AUTO) 9 % (0-12); NEUTROPHILS # (AUTO) 6.8 10^3/uL (1.8-7.8); NEUTROPHILS % (AUTO) 84 % (42-75); PLATELET COUNT 356 10^3/uL (130-400); WHITE BLOOD COUNT 8.1 10^3/uL (4.3-11.0)
[2021-05-16 04:38] LABS: POTASSIUM 3.8 MMOL/L (3.6-5.0)
[2021-05-16 04:39] LABS: CALCIUM 8.3 MG/DL (8.5-10.1)
[2021-05-16 04:44] LABS: CREATININE SERUM 0.82 MG/DL (0.60-1.30)
[2021-05-16] MEDS: KCL 20 MEQ TAB (K-DUR) PO SCH (04:46)
[2021-05-16 04:47] LABS: MAGNESIUM 1.9 MG/DL (1.6-2.4)
[2021-05-16] MEDS: MAGNESIUM 1 GM/100 ML IVPB 100 ML IV SCH (04:49)
[2021-05-16] MEDS: inSUlin ASPART (NovoLOG) 1 UNIT/0.01 ML (CHARGE PER UNIT) SC SCH ×4 (05:48→21:33)
[2021-05-16] MEDS: VANCOMYCIN 1500 MG/NS 500 ML IVPB IV SCH ×4 (05:48→18:00)
[2021-05-16] MEDS: CATHETER FLUSH 10 ML SYR IV SCH ×3 (06:11→22:10)
[2021-05-16] MEDS: APIXABAN 5 MG (ELIQUIS) TABLET PO SCH ×2 (08:12→20:03)
[2021-05-16] MEDS: dexAMETHasone 6 MG TAB (DECADRON) PO SCH (08:13)
[2021-05-16] MEDS: SOTALOL 80 MG (BETAPACE) TAB PO SCH ×2 (08:13→20:03)
--- NOTE | 2021-05-16 10:00 | History & Physical-Hospitalist ---
History of Present Illness HPI/Chief Complaint Pt is a 61yoCM with a PMH of gallstone pancreatitis s/p whipple on chronic daily abx with abdominal drain in place who presented to the ER due to hypoxia. He was tested for COVID on 05/05 in preparation for an outpatient procedure and was found to be positive. A couple of days later he became symptomatic. He is unvaccinated against COVID19. He called EMS yesterday and was found to be hypoxic in the 60-70s. He was placed on a NRB and brought to the ER. He was admitted to the ICU here after attempts t transfer were exhausted due to regional diversion. This morning he reports breathing easier but is still on BiPAP. Source: patient Date Seen 05/16/21 Time Seen by a Provider: 17:13 Attending Physician Wendy Powell MD PCP Walker Abdalla DO Referring Physician Date of Admission May 15, 2021 at 18:17 Home Medications & Allergies Home Medications Reviewed patient Home Medication Reconciliation performed by pharmacy medication reconciliations drivability technician and/or nursing. Patients Allergies have been reviewed. Allergies Allergies Coded Allergies prochlorperazine (Verified Allergy, Unknown, 12/23/20) Past Hbarzre-Zxagzz-Oxsfhe Hx Patient Social History Marrital Status: Tobacco Use?: No Smoking Status: Former Smoker Use of E-Cig and/or Vaping dev: No Substance use?: No Alcohol Use?: No Pt feels they are or have been: No Seasonal Allergies Seasonal Allergies: No Current Status Advance Directives: No Communicates: Verbally Primary Language: Japanese Preferred Spoken Language: Japanese Is interpretation needed?: No Implanted or Applied Medical D: Other Past Medical History Surgeries: Abdominal, Appendectomy, CABG Hypertension Pancreatitis Diabetes, Insulin dep Blood Disorders: No Family Medical History Reviewed Nursing Family Hx No Pertinent Family Hx Review of Systems Constitutional: chills; No fever; malaise EENTM: no symptoms reported Respiratory: cough, short of breath Cardiovascular: No chest pain Gastrointestinal: No abdominal pain, No diarrhea, No nausea, No vomiting Genitourinary: no symptoms reported Musculoskeletal: no symptoms reported Skin: no symptoms reported Psychiatric/Neurological: No Symptoms Reported Physical Exam Physical Exam Vital Signs Vital Signs - First Documented 05/15/21 05/15/21 12:45 19:15 Temp 36.8 Pulse 104 Resp 48 B/P (MAP) 128/71 (90) Pulse Ox 97 O2 Delivery OxyMask O2 Flow Rate 6.00 FiO2 80 Capillary Refill : Less Than 3 Seconds Height, Weight, BMI Height: '" Weight: lbs. oz. kg; 32.80 BMI Method: General Appearance: No Apparent Distress, Chronically ill HEENT: PERRL/EOMI, Moist Mucous Membranes; No Scleral Icterus (L), No Scleral Icterus (R) Neck: Normal Inspection, Supple Respiratory: No Accessory Muscle Use, Decreased Breath Sounds, Other (on BiPAP) Cardiovascular: Regular Rate, Rhythm, No JVD, No Murmur Gastrointestinal: Normal Bowel Sounds, Non Tender, Soft, Other (drain in place, scant fluid noted) Extremity: Normal Capillary Refill, No Calf Tenderness, No Pedal Edema Neurologic/Psychiatric: Alert, Oriented x3, Normal Mood/Affect Results Results/Procedures Labs Laboratory Tests 05/19/21 02:45 05/20/21 03:20 Patient resulted labs reviewed. Imaging: Reviewed Imaging Report [facility] [place], [place] NAME: PATRICKNIKHIL [facility] REC#: [id number] PT STATUS: REG ER : 1960 PHYSICIAN: CLIVE LIRIANO MD ADMIT DATE: 05/15/21/ER FS Signed Date of Exam:05/15/21 CHEST 1 VIEW AP/PA ONLY Indication: Shortness of breath. The patient is COVID 19 positive. No prior studies are available for comparison. There are changes of median sternotomy. Right upper extremity PICC line has tip overlying SVC. There is a moderate left pleural effusion. There appears to be some infiltrate in both bases. Upper lung miller are clear. No pneumothorax is seen. IMPRESSION: Moderate left-sided pleural effusion with bibasilar pulmonary infiltrates or atelectasis. Report was faxed to [facility] by jean pierre at 1:15PM. Dictated by: Dictated on workstation # [id number] Dict: 05/15/21 1311 Trans: 05/15/21 1554 JEAN PIERRE [id number] Interpreted by: KATHY TEE MD Electronically signed by: KATHY TEE MD 05/15/21 1554 [facility] [place], [place] NAME: NIKHIL PATRICK [facility] REC#: [id number] PT STATUS: REG ER : 1960 PHYSICIAN: CLIVE LIRIANO MD ADMIT DATE: 05/15/21/ER FS Signed Date of Exam:05/15/21 CT ANGIO CHEST W INDICATION: Hypoxia and elevated D-dimer. TECHNIQUE: Multiple contiguous axial images were obtained through the chest after uneventful bolus administration of intravenous contrast. 3D reconstructed CTA MIP acquisitions were also performed. Auto Exposure Controls were utilized during the CT exam to meet ALARA standards for radiation dose reduction. COMPARISON: There is no prior CTA for comparison. FINDINGS: The pulmonary parenchymal vessels are well opacified with no CT evidence of pulmonary emboli. Patient has had previous coronary bypass. The thoracic aorta shows no evidence of aneurysm or dissection. There is minor plaquing in the thoracic aorta. Great vessel origins are patent and without stenosis. The mediastinum and caesar show no definite adenopathy. There is no overt axillary adenopathy or chest wall lesion. There is a szrefmxg-pm-fzthm left pleural effusion. There is no significant right pleural fluid or pericardial fluid. Lung parenchymal windows demonstrate extensive alveolar and groundglass infiltrates in both lungs. IMPRESSION: No CT evidence of pulmonary emboli or aortic dissection or aneurysm. Extensive alveolar and groundglass infiltrates are present, suspicious for pneumonia, COVID-19 is in the differential. There is a gcmndcjd-xg-lzipb left pleural effusion. Dictated by: Dictated on workstation # [id number] Dict: 05/15/21 1534 Trans: 05/15/21 1703 [id number] Interpreted by: PAUL KESSLER MD Electronically signed by: PAUL KESSLER MD 05/15/21 1709 Assessment/Plan Admission Diagnosis Acute hypoxic respiratory failure due to COVID19 Admission Status: Inpatient Order (span 2 midnights) Reason for Inpatient Admission: see below Assessment and Plan Acute hypoxic respiratory failure due to COVID19 Chronic respiratory failure on 2lpm Currently on BiPAP, wean as able Not a candidate for Remdesivir Decadron TeleICU consulted Actemra not available IS MAT protocol Start baricitinib s/p Whipple drain in place Continue home IV abx a-fib HTN HLD Conitnue sotalol and metoprolol Hold amlodipine and BP normal to soft Contineu eliquis COntineu statin TEOFILO MILES MD May 16, 2021 10:00
[2021-05-16] MEDS ORDERED: CYAN500T8 PO (15:18)
[2021-05-16] MEDS ORDERED: PYRI50TA PO (15:18)
[2021-05-16] MEDS ORDERED: ASPI-1238 PO (15:18)
[2021-05-16] MEDS: BARICITINIB 2 MG (OLUMIANT)TABLET PO SCH (17:59)
[2021-05-16] MEDS: ANIDULAFUNGIN 100 MG/NS 100 ML IV SCH ×2 (19:53)
[2021-05-16] MEDS ORDERED: diphenhydrAMINE 50 MG/ML INJ (BENADRYL) IVP ONE (22:00)
[2021-05-17 02:25] VITALS: BP 109/79
[2021-05-17] MEDS: RT-ALBUTEROL HFA 8.5 GM INHALER IH SCH ×6 (02:25→22:31)
[2021-05-17 03:07] LABS: BASOPHILS % (AUTO) 0 % (0-10); EOSINOPHILS % (AUTO) 0 % (0-10); HEMATOCRIT 31 % (40-54); HEMOGLOBIN 9.5 g/dL (13.3-17.7); LYMPHOCYTES # (AUTO) 0.9 10^3/uL (1.0-4.0); LYMPHOCYTES % (AUTO) 12 % (12-44); MEAN CORPUSCULAR HEMOGLOBIN 28 pg (25-34); MEAN CORPUSCULAR HGB CONC 31 g/dL (32-36); MEAN CORPUSCULAR VOLUME 90 fL (80-99); MEAN PLATELET VOLUME 11.2 fL (9.0-12.2); MONOCYTES # (AUTO) 0.6 10^3/uL (0.0-1.0); MONOCYTES % (AUTO) 8 % (0-12); NEUTROPHILS # (AUTO) 6.4 10^3/uL (1.8-7.8); NEUTROPHILS % (AUTO) 80 % (42-75); PLATELET COUNT 380 10^3/uL (130-400)
[2021-05-17 03:20] LABS: POTASSIUM 3.6 MMOL/L (3.6-5.0)
[2021-05-17 03:21] LABS: CALCIUM 8.2 MG/DL (8.5-10.1)
[2021-05-17 03:25] LABS: CREATININE SERUM 0.88 MG/DL (0.60-1.30)
[2021-05-17] MEDS: POTASSIUM CL 10MEQ/50ML IVPB 50 ML IV SCH ×3 (03:25→05:00)
[2021-05-17] MEDS: inSUlin ASPART (NovoLOG) 1 UNIT/0.01 ML (CHARGE PER UNIT) SC SCH ×4 (03:26→21:11)
[2021-05-17] MEDS: KCL 20 MEQ TAB (K-DUR) PO SCH (03:26)
[2021-05-17 03:28] LABS: MAGNESIUM 1.9 MG/DL (1.6-2.4)
[2021-05-17] MEDS: PIPERACILLIN/TAZO 4.5 GM/NS 100 ML IV SCH ×2 (03:46)
[2021-05-17] MEDS: MAGNESIUM 1 GM/100 ML IVPB 100 ML IV SCH (04:30)
[2021-05-17] MEDS ORDERED: TROUGH ORDER-PHARMACY XX NR ×2 (06:00→18:00)
[2021-05-17] MEDS: CATHETER FLUSH 10 ML SYR IV SCH ×2 (06:55→14:09)
[2021-05-17] MEDS: VANCOMYCIN 1500 MG/NS 500 ML IVPB IV SCH ×2 (07:18)
[2021-05-17] MEDS: APIXABAN 5 MG (ELIQUIS) TABLET PO SCH ×2 (07:53→20:00)
[2021-05-17] MEDS: SOTALOL 80 MG (BETAPACE) TAB PO SCH ×2 (07:53→20:00)
[2021-05-17] MEDS: dexAMETHasone 6 MG TAB (DECADRON) PO SCH (07:53)
[2021-05-17] MEDS: ASPIRIN E.C. 81 MG (ECOTRIN) TAB PO SCH (07:53)
[2021-05-17] MEDS: BARICITINIB 2 MG (OLUMIANT)TABLET PO SCH (07:53)
[2021-05-17] MEDS: PYRIDOXINE (VITAMIN B-6) 50 MG TABLET PO SCH (07:54)
[2021-05-17] MEDS: CYANOCOBALAMIN 1,000 MCG (VITAMIN B-12) TABLET PO SCH (07:54)
[2021-05-17] MEDS ORDERED: HYDROcodone/APAP 5 MG/325 MG (LORTAB) TAB PO PRN (08:15)
[2021-05-17] MEDS ORDERED: NON-FORMULARY MEDICATION 1 EA EA (Cyanocobalamin (Vitamin B-12) (Vitamin B-12) 500 MCG) PO SCH (09:00)
--- NOTE | 2021-05-17 09:49 | Progress Note - Hospitalist ---
Subjective HPI/CC On Admission Date Seen by Provider: May 17, 2021 Time Seen by Provider: 09:45 Pt is a 61yoCM with a PMH of gallstone pancreatitis s/p whipple on chronic daily abx with abdominal drain in place who presented to the ER due to hypoxia. He was tested for COVID on 05/05 in preparation for an outpatient procedure and was found to be positive. A couple of days later he became symptomatic. He is unvaccinated against COVID19. He called EMS yesterday and was found to be hypoxic in the 60-70s. He was placed on a NRB and brought to the ER. He was admitted to the ICU here after attempts t transfer were exhausted due to re gional diversion. This morning he reports breathing easier but is still on BiPAP. Subjective/Events-last exam Pt reports doing well. No complaints. Off BiPAP and on Vapotherm. Pharmacy confirmed with and outpatient pharmacy on home IV meds. Focused Exam Lactate Level 05/15/21 13:15: Lactic Acid Level 2.03*H 05/15/21 15:50: Lactic Acid Level 2.12*H 05/15/21 19:17: Lactic Acid Level 1.53 Objective Exam Vital Signs Vital Signs Date Time Temp Pulse Resp B/P (MAP) Pulse Ox O2 Delivery O2 Flow Rate FiO2 05/17/21 09:24 96 Vapotherm 40.00 100 05/17/21 08:08 36.1 05/17/21 08:00 101 40 103/91 (95) Capillary Refill : Less Than 3 Seconds General Appearance: No Apparent Distress, Chronically ill Respiratory: No Accessory Muscle Use, Decreased Breath Sounds, Other (on Vapotherm 40/100%) Cardiovascular: Regular Rate, Rhythm, No Murmur Gastrointestinal: Normal Bowel Sounds, Non Tender, Soft, Other (drain in place) Neurologic/Psychiatric: Alert, Oriented x3 Results/Procedures Lab Laboratory Tests 05/17/21 02:50 Patient resulted labs reviewed. Imaging: Reviewed Imaging Report Assessment/Plan Assessment and Plan Assess & Plan/Chief Complaint Acute hypoxic respiratory failure due to COVID19 Chronic respiratory failure on 2lpm Currently on BiPAP, wean as able Not a candidate for Remdesivir due to high oxygen requirement Decadron TeleICU consulted Actemra not available IS MAT protocol started baricitinib but given what we know now about longstanding intrabdominal infection will stop and risk outweigh potential benefits s/p Whipple drain in place Continue home IV abx Continue home octreotide a-fib HTN HLD Continue sotalol and metoprolol Hold amlodipine and BP normal to soft Continue eliquis Continue statin Critical Care Critically Ill Patient TEOFILO MILES MD May 17, 2021 09:49
[2021-05-17] MEDS ORDERED: OCTR200V2 SQ (09:52)
[2021-05-17] MEDS ORDERED: MICA100V3 IV (09:52)
[2021-05-17] MEDS ORDERED: MERO1VIA23 IV (09:52)
--- NOTE | 2021-05-17 11:30 | Tele-ICU Progress Note ---
Subjective Date Seen by a Provider: May 17, 2021 Time Seen by a Provider: 11:30 Sepsis Event Evaluation Height, Weight, BMI Height: '" Weight: lbs. oz. kg; 32.80 BMI Method: Focused Exam Lactate Level 05/15/21 13:15: Lactic Acid Level 2.03*H 05/15/21 15:50: Lactic Acid Level 2.12*H 05/15/21 19:17: Lactic Acid Level 1.53 Exam Exam Patient acknowledged, consented, and participated in this virtual visit which was conducted using real time audio/video Vital Signs Date Time Temp Pulse Resp B/P (MAP) Pulse Ox O2 Delivery O2 Flow Rate FiO2 05/17/21 10:00 126 35 113/67 (82) 93 NIV Bilevel 80.00 05/17/21 09:24 96 Vapotherm 40.00 100 05/17/21 09:00 113 36 101/70 (80) 95 NIV Bilevel 80.00 05/17/21 08:34 90 Vapotherm 40.00 100 05/17/21 08:09 Vapotherm 100 05/17/21 08:08 36.1 05/17/21 08:00 101 40 103/91 (95) 96 NIV Bilevel 80.00 05/17/21 07:00 130 27 93/72 (79) 93 NIV Bilevel 80.00 05/17/21 06:33 116 05/17/21 06:00 110 33 103/79 (87) 96 NIV Bilevel 80.00 05/17/21 05:30 105 35 95/71 (79) 92 NIV Bilevel 80.00 05/17/21 04:00 NIV Bilevel 80 05/17/21 04:00 111 33 97/66 (76) 97 NIV Bilevel 80.00 05/17/21 03:00 109 28 92/58 (78) 97 NIV Bilevel 80.00 05/17/21 02:25 105 36 98 80.00 05/17/21 02:00 101 36 97/77 (84) 98 NIV Bilevel 80.00 05/17/21 01:05 NIV Bilevel 80.00 05/17/21 01:00 102 05/17/21 01:00 93 38 111/62 (79) 88 NIV Bilevel 70.00 05/17/21 00:00 NIV Bilevel 70 05/17/21 00:00 36.6 05/17/21 00:00 87 27 104/76 (85) 96 NIV Bilevel 70.00 05/16/21 23:00 114 92/64 (73) 95 NIV Bilevel 70.00 05/16/21 22:00 97 33 98/62 (72) 95 NIV Bilevel 70.00 05/16/21 21:39 86 34 96 70.00 05/16/21 21:00 96 32 114/85 (93) 97 NIV Bilevel 70.00 05/16/21 20:22 NIV Bilevel 70.00 05/16/21 20:00 90 Vapotherm 40.00 100 05/16/21 20:00 36.2 05/16/21 20:00 90 40 99/62 (73) 91 Vapotherm 40.00 100.00 05/16/21 19:00 100 05/16/21 19:00 100 34 109/65 (74) 93 Vapotherm 40.00 100.00 05/16/21 18:34 90 Vapotherm 40.00 100 05/16/21 18:00 101 29 114/67 (83) 93 Vapotherm 40.00 100.00 05/16/21 17:34 Vapotherm 40.00 100.00 05/16/21 17:11 Vapotherm 40.00 80.00 05/16/21 17:00 91 25 114/63 (80) 90 Vapotherm 32.00 70.00 05/16/21 16:19 Vapotherm 32.00 70.00 05/16/21 16:13 95 Vapotherm 30.00 65 05/16/21 16:00 85 24 107/81 (90) 96 NIV Bilevel 65.00 05/16/21 15:45 94 NIV Bilevel 65 05/16/21 15:44 36.4 05/16/21 15:00 97 39 100/74 (83) 97 NIV Bilevel 65.00 05/16/21 14:24 77 27 97 65.00 05/16/21 14:00 79 31 95/66 (76) 96 NIV Bilevel 65.00 05/16/21 13:00 82 33 105/69 (81) 97 NIV Bilevel 65.00 05/16/21 12:41 36.6 79 30 101/68 (79) 95 NIV Bilevel 65.00 05/16/21 12:35 86 05/16/21 12:35 94 NIV Bilevel 65 05/16/21 12:00 85 39 100/64 (76) 96 NIV Bilevel 60.00 I & O 05/17/21 07:00 Intake Total 1225 ml Output Total 730 ml Balance 495 ml Height & Weight Height: '" Weight: lbs. oz. kg; 32.80 BMI Method: General Appearance: No Apparent Distress, Chronically ill HEENT: PERRL/EOMI, Moist Mucous Membranes; No Scleral Icterus (L), No Scleral Icterus (R) Neck: Normal Inspection, Supple Respiratory: No Accessory Muscle Use, Decreased Breath Sounds, Other (on Vapotherm 40/100%) Cardiovascular: Regular Rate, Rhythm, No Murmur Capillary Refill: Less Than 3 Seconds Gastrointestinal: normal bowel sounds, non tender, soft; No guarding, No rebound Extremity: Normal Capillary Refill, No Calf Tenderness, No Pedal Edema Neurologic/Psychiatric: Alert, Oriented x3 Results Lab Laboratory Tests 05/15/21 13:15 05/16/21 03:55 05/17/21 02:50 Assessment/Plan Assessment/Plan (Tele-ICU Physician , Progress Note ) Available chart/ vitals / labs / Images reviewed Video assessment done using teleICU camera, rest of exam as per RN Discussed with RN Events overnight : Afebrile I/O = pos 800 Drips: Pressors: , hemodynamically stable EXAM PER RN Consultants: Hospital course: 05/16 - ARF 05/17 - vapotherm 40L 90% A/P AHRF / ARDS due to severe COVID19 ( ? pNA , effusion on left , NO PE on CT 05/16 ) -prone position if able - conservative fluid strategy (aim for even or negative fluid balance [id number]-Dmlwoidshhc-7/COVID-19 PNA ( Not vaccinated , Dx 05/05 asymptomatic - as pre-op testing , symptoms 05/08 admited 05/16 ) -not candidate for Remdesivir- -Steroids IV - started 05/16 -baricitinib 05/16 -Hypercoagulable state , DDIMER on 05/15 =4.4 -> onEliquis already full dose ( no evidence of large PE on CT ) s/p Whipple ( gallstone pancreatitis -drain in place -Continue home IV abx - on home dose octretoide A fib - rate controlled - at home on sotalol and metoprolol, amlodipine LEFT plural effusion - follow cxr , no indication fot thora now Diabetes Mellitus - ISS , close f/up on steroids Anemia - slow trend down , no active bleeding Lines : PICC on right ( presented onadmission - ? date placement ) (Central Line Necessity Reviewed) Perea: 05/16 OG: Nutrition: poor Analgesia: Anxiety/ delirium VTE Prophylaxis: eliquis Stress Ulcer Prophylaxis: PPI Glycemic Control: Plans in collaboration with bedside consultants and IM MDs. Discussed with RN to reach out if any questions or concerns A total of 36 minutes of critical care time was devoted to this patient today, required to treat and/or prevent further deterioration of critical care condition ( as above) . CHELY MURPHY MD May 17, 2021 11:30
[2021-05-17] MEDS: OCTREOTIDE (FOR SQ USE) 100 MCG/ML VIAL (SandoSTATIN) SC SCH ×2 (14:01→22:55)
[2021-05-17] MEDS: MEROPENEM 1,000 MG/SWFI 20 ML IV PUSH IV SCH ×2 (14:04)
[2021-05-17] MEDS: ANIDULAFUNGIN 100 MG/NS 100 ML IV SCH ×2 (19:49)
[2021-05-17 22:31] VITALS: BP 125/101
[2021-05-18] MEDS: MEROPENEM 1,000 MG/SWFI 20 ML IV PUSH IV SCH ×8 (01:00→20:48)
[2021-05-18] MEDS: CATHETER FLUSH 10 ML SYR IV SCH ×4 (01:14→20:47)
[2021-05-18 02:25] VITALS: BP 111/87
[2021-05-18] MEDS: RT-ALBUTEROL HFA 8.5 GM INHALER IH SCH ×6 (02:25→22:07)
[2021-05-18 03:24] LABS: BASOPHILS % (AUTO) 0 % (0-10); EOSINOPHILS % (AUTO) 0 % (0-10); HEMATOCRIT 31 % (40-54); HEMOGLOBIN 9.6 g/dL (13.3-17.7); LYMPHOCYTES # (AUTO) 1.2 10^3/uL (1.0-4.0); LYMPHOCYTES % (AUTO) 11 % (12-44); MEAN CORPUSCULAR HEMOGLOBIN 28 pg (25-34); MEAN CORPUSCULAR HGB CONC 31 g/dL (32-36); MEAN CORPUSCULAR VOLUME 91 fL (80-99); MEAN PLATELET VOLUME 11.6 fL (9.0-12.2); MONOCYTES % (AUTO) 10 % (0-12); NEUTROPHILS % (AUTO) 78 % (42-75); PLATELET COUNT 403 10^3/uL (130-400); WHITE BLOOD COUNT 10.3 10^3/uL (4.3-11.0)
[2021-05-18 03:33] LABS: POTASSIUM 4.7 MMOL/L (3.6-5.0)
[2021-05-18 03:34] LABS: CALCIUM 8.4 MG/DL (8.5-10.1)
[2021-05-18 03:38] LABS: CREATININE SERUM 0.97 MG/DL (0.60-1.30); PHOSPHORUS 3.7 MG/DL (2.3-4.7)
[2021-05-18 03:41] LABS: MAGNESIUM 2.2 MG/DL (1.6-2.4)
[2021-05-18] MEDS: POTASSIUM CL 10MEQ/50ML IVPB 50 ML IV SCH (03:54)
[2021-05-18] MEDS: MAGNESIUM 1 GM/100 ML IVPB 100 ML IV SCH (03:54)
[2021-05-18] MEDS: KCL 20 MEQ TAB (K-DUR) PO SCH (03:55)
[2021-05-18] MEDS ORDERED: TROUGH ORDER-PHARMACY XX NR (06:00)
[2021-05-18] MEDS: CYANOCOBALAMIN 1,000 MCG (VITAMIN B-12) TABLET PO SCH (06:40)
[2021-05-18] MEDS: OCTREOTIDE (FOR SQ USE) 100 MCG/ML VIAL (SandoSTATIN) SC SCH ×3 (06:40→20:48)
[2021-05-18] MEDS: inSUlin ASPART (NovoLOG) 1 UNIT/0.01 ML (CHARGE PER UNIT) SC SCH ×4 (06:41→20:47)
--- NOTE | 2021-05-18 07:46 | Diagnostic Imaging Report ---
INDICATION: Pneumonia COMPARISON: 05/15/2021 FINDINGS: Single frontal radiographic view of the chest was obtained and demonstrates persistent potentially loculated xtig-kx-zuniddfj left basilar effusion. There is also associated mild cardiomegaly and mild prominence of the pulmonary vasculature. Overall, aeration is not significantly changed. There is no large effusion on the right. No pneumothorax is seen on either side. Sternotomy wires and right upper extremity PICC line are also present. IMPRESSION: 1. Essentially stable exam of the chest showing mild cardiomegaly with vascular congestion and pxaa-gt-awkryaja left basilar effusion; potentially loculated. Dictated by: Dictated on workstation # [id number]
[2021-05-18] MEDS: PYRIDOXINE (VITAMIN B-6) 50 MG TABLET PO SCH (09:04)
[2021-05-18] MEDS: APIXABAN 5 MG (ELIQUIS) TABLET PO SCH ×2 (09:04→20:45)
[2021-05-18] MEDS: ASPIRIN E.C. 81 MG (ECOTRIN) TAB PO SCH (09:04)
[2021-05-18] MEDS: dexAMETHasone 6 MG TAB (DECADRON) PO SCH (09:04)
[2021-05-18] MEDS: SOTALOL 80 MG (BETAPACE) TAB PO SCH ×2 (09:04→20:46)
--- NOTE | 2021-05-18 09:24 | Progress Note - Hospitalist ---
Subjective HPI/CC On Admission Date Seen by Provider: May 18, 2021 Time Seen by Provider: 09:21 Pt is a 61yoCM with a PMH of gallstone pancreatitis s/p whipple on chronic daily abx with abdominal drain in place who presented to the ER due to hypoxia. He was tested for COVID on 05/05 in preparation for an outpatient procedure and was found to be positive. A couple of days later he became symptomatic. He is unvaccinated against COVID19. He called EMS yesterday and was found to be hypoxic in the 60-70s. He was placed on a NRB and brought to the ER. He was admitted to the ICU here after attempts t transfer were exhausted due to re gional diversion. This morning he reports breathing easier but is still on BiPAP. Subjective/Events-last exam Pt reports feeling better today. No complaints. On Vpoatherm. Breathing easier. Only concern is that he can't find his remote for the TV. Attempted to locate it but could not. Focused Exam Lactate Level 05/15/21 13:15: Lactic Acid Level 2.03*H 05/15/21 15:50: Lactic Acid Level 2.12*H 05/15/21 19:17: Lactic Acid Level 1.53 Objective Exam Vital Signs Vital Signs Date Time Temp Pulse Resp B/P (MAP) Pulse Ox O2 Delivery O2 Flow Rate FiO2 05/18/21 08:26 96 Vapotherm 35.00 80 05/18/21 08:00 35.8 05/18/21 07:00 110 05/18/21 06:00 24 103/85 (91) Capillary Refill : Less Than 3 Seconds General Appearance: No Apparent Distress Respiratory: Decreased Breath Sounds; No Wheezing; Other (on Vapotherm) Cardiovascular: No Murmur, Tachycardia Gastrointestinal: Normal Bowel Sounds, Non Tender, Soft Neurologic/Psychiatric: Alert, Oriented x3 Results/Procedures Lab Laboratory Tests 05/18/21 03:10 Patient resulted labs reviewed. Imaging: Reviewed Imaging Report Assessment/Plan Assessment and Plan Assess & Plan/Chief Complaint Acute hypoxic respiratory failure due to COVID19 Chronic respiratory failure on 2lpm Vapotherm at day and BiPAP at night, doing well- decreasing oygen requirement Not a candidate for Remdesivir due to high oxygen requirement Decadron TeleICU consulted Actemra not available IS MAT protocol started baricitinib but given what we know now about longstanding intrabdominal infection will stop and risk outweigh potential benefits, DC yesterday s/p Whipple drain in place Continue home IV abx Continue home octreotide a-fib HTN HLD Continue sotalol and metoprolol increase, metoprolol dose today Hold amlodipine and BP normal to soft Continue eliquis Continue statin Critical Care Critically Ill Patient TEOFILO MILES MD May 18, 2021 09:24
[2021-05-18] MEDS ORDERED: meTOprolol TARTRATE 25 MG (LOPRESSOR) TABLET PO ONE (09:30)
[2021-05-18] MEDS ORDERED: VANCOMYCIN 1 GM/NS 250 ML IVPB IV SCH ×2 (12:00)
[2021-05-18 15:14] VITALS: BP 117/92
--- NOTE | 2021-05-18 15:30 | Tele-ICU Progress Note ---
Subjective Date Seen by a Provider: May 18, 2021 Time Seen by a Provider: 09:49 Sepsis Event Evaluation Height, Weight, BMI Height: '" Weight: lbs. oz. kg; 32.80 BMI Method: Focused Exam Lactate Level 05/15/21 15:50: Lactic Acid Level 2.12*H 05/15/21 19:17: Lactic Acid Level 1.53 Exam Exam Patient acknowledged, consented, and participated in this virtual visit which was conducted using real time audio/video Vital Signs Date Time Temp Pulse Resp B/P (MAP) Pulse Ox O2 Delivery O2 Flow Rate FiO2 05/18/21 15:14 124 27 97 70.00 05/18/21 13:00 132 05/18/21 12:00 Vapotherm 80 05/18/21 12:00 118 21 104/85 (91) 98 NIV Bilevel 60.00 05/18/21 12:00 36.2 05/18/21 11:00 129 13 101/75 (84) 98 NIV Bilevel 60.00 05/18/21 10:45 95 Vapotherm 35.00 80 05/18/21 10:00 112 18 90/78 (82) 96 NIV Bilevel 60.00 05/18/21 09:00 142 9 102/90 (94) 97 NIV Bilevel 60.00 05/18/21 08:26 96 Vapotherm 35.00 80 05/18/21 08:00 Vapotherm 80 05/18/21 08:00 35.8 05/18/21 08:00 126 28 94/84 (87) 96 NIV Bilevel 60.00 05/18/21 07:00 110 05/18/21 07:00 114 30 120/86 (97) 97 NIV Bilevel 60.00 05/18/21 06:52 NIV Bilevel 60.00 05/18/21 06:00 131 24 103/85 (91) 100 NIV Bilevel 70.00 05/18/21 05:00 128 24 107/95 (99) 100 NIV Bilevel 70.00 05/18/21 04:00 36.0 05/18/21 04:00 129 24 89/70 (76) 98 NIV Bilevel 70.00 05/18/21 04:00 NIV Bilevel 70 05/18/21 03:16 NIV Bilevel 70.00 8/26/21 03:00 108 24 87/72 (77) 98 NIV Bilevel 80.00 05/18/21 02:25 137 32 100 100.00 05/18/21 02:00 128 28 111/87 (95) 100 NIV Bilevel 80.00 05/18/21 01:15 35.6 05/18/21 01:00 125 21 108/85 (93) 100 NIV Bilevel 80.00 05/18/21 01:00 125 05/18/21 00:00 NIV Bilevel 80 05/18/21 00:00 105 25 92/71 (78) 100 NIV Bilevel 80.00 05/17/21 23:00 108 35 108/87 (94) 100 NIV Bilevel 80.00 05/17/21 22:31 118 34 100 100.00 05/17/21 22:00 112 30 131/95 (107) 100 NIV Bilevel 80.00 05/17/21 21:19 NIV Bilevel 80.00 05/17/21 21:00 117 35 116/90 (99) 100 Vapotherm 40.00 60.00 05/17/21 20:23 37.0 05/17/21 20:00 118 36 105/90 (95) 96 Vapotherm 40.00 60.00 05/17/21 20:00 Vapotherm 90 05/17/21 19:00 120 05/17/21 19:00 141 35 97/79 (85) 94 Vapotherm 40.00 60.00 05/17/21 18:45 91 Vapotherm 40.00 90 05/17/21 18:15 Vapotherm 40.00 60.00 05/17/21 18:00 140 33 116/79 (91) 91 NIV Bilevel 90.00 05/17/21 17:00 118 39 107/95 (99) 89 NIV Bilevel 90.00 05/17/21 16:16 36.3 05/17/21 16:00 140 36 108/82 (91) 92 NIV Bilevel 90.00 05/17/21 16:00 Vapotherm 90 I & O 05/18/21 07:00 Intake Total 905 ml Output Total 625 ml Balance 280 ml Height & Weight Height: '" Weight: lbs. oz. kg; 32.80 BMI Method: General Appearance: No Apparent Distress HEENT: PERRL/EOMI, Moist Mucous Membranes; No Scleral Icterus (L), No Scleral Icterus (R) Neck: Normal Inspection, Supple Respiratory: Decreased Breath Sounds; No Wheezing; Other (on Vapotherm) Cardiovascular: No Murmur, Tachycardia Capillary Refill: Less Than 3 Seconds Gastrointestinal: normal bowel sounds, non tender, soft; No guarding, No rebound Extremity: Normal Capillary Refill, No Calf Tenderness, No Pedal Edema Neurologic/Psychiatric: Alert, Oriented x3 Results Lab Laboratory Tests 05/17/21 02:50 05/18/21 03:10 Assessment/Plan Assessment/Plan (Tele-ICU Physician , Progress Note ) Available chart/ vitals / labs / Images reviewed Video assessment done using teleICU camera, rest of exam as per RN Discussed with RN Events overnight : Afebrile I/O = pos 800 Drips: Pressors: , hemodynamically stable EXAM PER RN Consultants: Hospital course: 05/16 - ARF 05/17 - vapotherm 40L 90% 05/18-vapotherm 35L 80 % A/P AHRF / ARDS due to severe COVID19 ( ? pNA , effusion on left , NO PE on CT 05/16 ) -vapotherm 35L 80 % -prone position if able - conservative fluid strategy (aim for even or negative fluid balance [id number]-8/COVID-19 PNA ( Not vaccinated , Dx 05/05 asymptomatic - as pre-op testing , symptoms 05/08 admited 05/16 ) -not candidate for Remdesivir- -Steroids IV - started 05/16 -baricitinib 05/16 -Hypercoagulable state , DDIMER on 05/15 =4.4 -> onEliquis already full dose ( no evidence of large PE on CT ) s/p Whipple ( gallstone pancreatitis -drain in place -Continue home IV abx - on home dose octretoide A fib - rate controlled - at home on sotalol and metoprolol, amlodipine LEFT plural effusion ( Ct 05/16- - stable by cxr , no indication fot thora now Diabetes Mellitus - ISS , close f/up on steroids Anemia - slow trend down , no active bleeding CRUZITO- CPAP Lines : PICC on right ( presented onadmission - ? date placement ) (Central Line Necessity Reviewed) [place]: 05/16 OG: Nutrition: poor Analgesia: Anxiety/ delirium VTE Prophylaxis: eliquis Stress Ulcer Prophylaxis: PPI Glycemic Control: Plans in collaboration with bedside consultants and IM MDs. Discussed with RN to reach out if any questions or concerns A total of 36 minutes of critical care time was devoted to this patient today, required to treat and/or prevent further deterioration of critical care condition ( as above) . CHELY MURPHY MD May 18, 2021 15:29
[2021-05-18] MEDS ORDERED: dilTIAZem DRIP PRE-MIX 125 ML IV ONE (15:36)
[2021-05-18] MEDS: dilTIAZem DRIP PRE-MIX 125 ML IV SCH (15:54)
--- NOTE | 2021-05-18 17:05 | Consultation-Cardiology ---
HPI-Cardiology Cardiology Consultation Date of Consultation 05/18/21 Date of Admission Time Seen by Provider: 17:00 Indication: Atrial fibrillation HPI 61-year-old gentleman with acute respiratory failure secondary to COVID-19 infection, presented to the hospital on May 20, 2021 he was having worsening shortness of breath, was on Vapotherm, currently on BiPAP, unable to provide full history. Patient continued to have progressive dyspnea, noted to be in atrial fibrillation with rapid ventricular response that is difficult to control due to his borderline hypotension. Home Medications & Allergies Allergies: Coded Allergies: prochlorperazine (Verified Allergy, Unknown, 12/23/20) Home Medication List Reviewed: Yes UUE-[id number]-Nflwbf Hx Patient Social History Marital Status: Smoking Status: Former Smoker 2nd Hand Smoke Exposure: No Recent Hopitalizations: No Have you traveled recently?: No Alcohol Use?: No Past Medical History Discussed below Family Medical History Significant Family History: No Pertinent Family Hx Family Medical Hx Noncontributory Review of Systems-General Review of Systems Constitutional: chills; No fever; malaise EENTM: no symptoms reported Respiratory: cough, short of breath Cardiovascular: No chest pain Gastrointestinal: No abdominal pain, No diarrhea, No nausea, No vomiting Genitourinary: no symptoms reported Musculoskeletal: no symptoms reported Skin: no symptoms reported Psychiatric/Neurological: No Symptoms Reported All Other Systems Reviewed Negative Unless Noted: Yes Reviewed Test Results Reviewed Test Results Lab Laboratory Tests Test 05/17/21 18:15 05/17/21 20:36 05/18/21 03:10 05/18/21 06:45 Range/Units Vancomycin Level Trough 25.1 #*H 18.3 10.0-20.0 UG/ML Glucometer 244 H 70-110 MG/DL White Blood Count 10.3 4.3-11.0 10^3/uL Red Blood Count 3.39 L 4.30-5.52 10^6/uL Hemoglobin 9.6 L 13.3-17.7 g/dL Hematocrit 31 L 40-54 % Mean Corpuscular Volume 91 80-99 fL Mean Corpuscular Hemoglobin 28 25-34 pg Mean Corpuscular Hemoglobin Concent 31 L 32-36 g/dL Red Cell Distribution Width 15.4 H 10.0-14.5 % Platelet Count 403 H 130-400 10^3/uL Mean Platelet Volume 11.6 9.0-12.2 fL Immature Granulocyte % (Auto) 1 % Neutrophils (%) (Auto) 78 H 42-75 % Lymphocytes (%) (Auto) 11 L 12-44 % Monocytes (%) (Auto) 10 0-12 % Eosinophils (%) (Auto) 0 0-10 % Basophils (%) (Auto) 0 0-10 % Neutrophils # (Auto) 8.0 H 1.8-7.8 10^3/uL Lymphocytes # (Auto) 1.2 1.0-4.0 10^3/uL Monocytes # (Auto) 1.0 0.0-1.0 10^3/uL Eosinophils # (Auto) 0.0 0.0-0.3 10^3/uL Basophils # (Auto) 0.0 0.0-0.1 10^3/uL Immature Granulocyte # (Auto) 0.1 0.0-0.1 10^3/uL Sodium Level 140 135-145 MMOL/L Potassium Level 4.7 3.6-5.0 MMOL/L Chloride Level 107 98-107 MMOL/L Carbon Dioxide Level 21 21-32 MMOL/L Anion Gap 12 5-14 MMOL/L Blood Urea Nitrogen 31 H 7-18 MG/DL Creatinine 0.97 0.60-1.30 MG/DL Estimat Glomerular Filtration Rate 78 BUN/Creatinine Ratio 32 Glucose Level 230 H 70-105 MG/DL Calcium Level 8.4 L 8.5-10.1 MG/DL Phosphorus Level 3.7 2.3-4.7 MG/DL Magnesium Level 2.2 1.6-2.4 MG/DL Test 05/18/21 10:51 05/18/21 15:49 Range/Units Glucometer 292 H 220 H 70-110 MG/DL Physical Exam Physical Exam Vital Signs Vital Signs - First Documented 05/15/21 05/15/21 12:45 19:15 Temp 36.8 Pulse 104 Resp 48 B/P (MAP) 128/71 (90) Pulse Ox 97 O2 Delivery OxyMask O2 Flow Rate 6.00 FiO2 80 Capillary Refill : Less Than 3 Seconds Height, Weight, BMI Height: '" Weight: lbs. oz. kg; 32.80 BMI Method: General Appearance: Other (Maintained on BiPAP in moderate distress) HEENT: No Scleral Icterus (L), No Scleral Icterus (R) Neck: Normal Inspection, Supple Respiratory: No Wheezing Cardiovascular: Irregularly Irregular, Tachycardia Gastrointestinal: Non Tender, Soft Extremity: Normal Capillary Refill, No Calf Tenderness, No Pedal Edema Neurologic/Psychiatric: Alert A/P-Cardiology Admission Diagnosis Acute respiratory failure COVID-19 pneumonia Atrial fibrillation Hypotension Assessment/Plan Acute respiratory failure secondary to COVID-19 pneumonia, progressive deterioration in respiratory failure was on Vapotherm then currently on BiPAP. Receiving Decadron, not a candidate for remdesivir due to high oxygen requirement. Managed by medical team Paroxysmal atrial fibrillation, currently tachycardic, was borderline hypotensive, continue with IV fluid and started on Cardizem drip with slow titration and careful titration to achieve adequate heart rate control without significant dip in his blood pressure. Patient has been on sotalol, continue on sotalol and monitor QT interval, I recommend discontinuation of metoprolol and amlodipine and use diltiazem drip and titrated to achieve adequate heart rate control. History of Whipple procedure. Has drain in place. Hypertension, currently borderline hypotensive. Continue to monitor Hyperlipidemia, monitor lipids. TIAGO GILL MD May 18, 2021 17:05
[2021-05-18] MEDS: ANIDULAFUNGIN 100 MG/NS 100 ML IV SCH ×2 (20:46)
[2021-05-18] MEDS ORDERED: meTOproloL SUCCINATE 50 MG (TOPROL XL) TAB PO SCH (21:00)
[2021-05-18 22:07] VITALS: BP 107/84
[2021-05-19 01:58] VITALS: BP 110/77
[2021-05-19] MEDS: RT-ALBUTEROL HFA 8.5 GM INHALER IH SCH ×6 (01:58→22:07)
[2021-05-19 02:52] LABS: BASOPHILS % (AUTO) 0 % (0-10); EOSINOPHILS % (AUTO) 0 % (0-10); HEMATOCRIT 31 % (40-54); HEMOGLOBIN 9.6 g/dL (13.3-17.7); LYMPHOCYTES # (AUTO) 0.6 10^3/uL (1.0-4.0); LYMPHOCYTES % (AUTO) 4 % (12-44); MEAN CORPUSCULAR HEMOGLOBIN 28 pg (25-34); MEAN CORPUSCULAR HGB CONC 31 g/dL (32-36); MEAN CORPUSCULAR VOLUME 91 fL (80-99); MEAN PLATELET VOLUME 11.3 fL (9.0-12.2); MONOCYTES # (AUTO) 0.8 10^3/uL (0.0-1.0); MONOCYTES % (AUTO) 6 % (0-12); NEUTROPHILS # (AUTO) 11.6 10^3/uL (1.8-7.8); NEUTROPHILS % (AUTO) 88 % (42-75); PLATELET COUNT 397 10^3/uL (130-400); WHITE BLOOD COUNT 13.2 10^3/uL (4.3-11.0)
[2021-05-19 03:01] LABS: POTASSIUM 4.6 MMOL/L (3.6-5.0)
[2021-05-19 03:02] LABS: CALCIUM 8.6 MG/DL (8.5-10.1)
[2021-05-19 03:07] LABS: CREATININE SERUM 0.93 MG/DL (0.60-1.30)
[2021-05-19 03:09] LABS: MAGNESIUM 2.2 MG/DL (1.6-2.4)
[2021-05-19 03:23] LABS: BAND NEUTROPHILS 1 %; LYMPHOCYTES % (MANUAL) 7 %; METAMYELOCYTES % 1 %; MONOCYTES % (MANUAL) 3 %; NEUTROPHILS % (MANUAL) 88 %
[2021-05-19 03:24] LABS: ACANTHOCYTES SLIGHT; HYPOCHROMASIA SLIGHT; MICROCYTOSIS MODERATE; NUCLEATED RED BLOOD CELLS 4; SPHEROCYTES SLIGHT
[2021-05-19] MEDS: MAGNESIUM 1 GM/100 ML IVPB 100 ML IV SCH (03:26)
[2021-05-19] MEDS: POTASSIUM CL 10MEQ/50ML IVPB 50 ML IV SCH (03:26)
[2021-05-19] MEDS: KCL 20 MEQ TAB (K-DUR) PO SCH (03:27)
[2021-05-19] MEDS: dilTIAZem DRIP PRE-MIX 125 ML IV SCH ×2 (05:29→15:36)
[2021-05-19] MEDS: OCTREOTIDE (FOR SQ USE) 100 MCG/ML VIAL (SandoSTATIN) SC SCH ×3 (05:30→20:48)
[2021-05-19] MEDS: MEROPENEM 1,000 MG/SWFI 20 ML IV PUSH IV SCH ×6 (05:30→20:46)
[2021-05-19] MEDS: inSUlin ASPART (NovoLOG) 1 UNIT/0.01 ML (CHARGE PER UNIT) SC SCH ×4 (05:30→20:46)
[2021-05-19] MEDS: CATHETER FLUSH 10 ML SYR IV SCH ×3 (05:31→20:48)
[2021-05-19 07:50] VITALS: BP 96/81
--- NOTE | 2021-05-19 09:02 | Cardiology Progress Note ---
Subjective Date Seen by Provider: May 19, 2021 Time Seen by Provider: 09:00 Subjective/Events-last exam Patient is laying down in bed, still borderline tachycardic, requiring higher dose of Cardizem Review of Systems General: No Chills, No Night Sweats; Fatigue, Malaise; No Appetite, No Other HEENT: No Head Aches, No Visual Changes, No Eye Pain, No Ear Pain, No Dysp hasia, No Sinus Congestion, No Post Nasal Drip, No Sore Throat, No Other Pulmonary: Dyspnea; No Cough, No Pleuritic Chest Pain, No Other Cardiovascular: No: Chest Pain, Palpitations, Orthopnea, Paroxysmal Noc. Dyspnea, Edema, Lt Headedness, Other Objective-Cardiology Exam Last Set of Vital Signs Vital Signs 05/19/21 05/19/21 05/19/21 05/19/21 04:00 07:50 07:56 08:00 Temp 35.6 Pulse 98 Resp 30 B/P (MAP) 99/67 (71) Pulse Ox 94 O2 Delivery NIV Bilevel O2 Flow Rate 45.00 FiO2 65 I&O Intake and Output 05/19/21 00:00 Intake Total 940 ml Output Total 775 ml Balance 165 ml Intake Oral 940 ml Output Urine Total 775 ml General: Alert, Cooperative HEENT: Atraumatic Neck: Supple Heart: Other (Atrial fibrillation) Extremities: No Clubbing, No Cyanosis Skin: No Rashes Psych/Mental Status: Mental Status NL Results Lab Laboratory Tests 05/19/21 02:45 A/P-Cardiology Admission Diagnosis Acute respiratory failure COVID-19 pneumonia Atrial fibrillation Hypotension Assessment/Plan Acute respiratory failure secondary to COVID-19 pneumonia, progressive deterioration in respiratory failure was on Vapotherm then currently on BiPAP. Receiving Decadron, not a candidate for remdesivir due to high oxygen requirement. 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 Hypertension, currently borderline hypotensive. Continue to monitor Hyperlipidemia, monitor lipids. TIAGO GILL MD May 19, 2021 09:02
--- NOTE | 2021-05-19 09:06 | Tele-ICU Progress Note ---
Subjective Date Seen by a Provider: May 19, 2021 Time Seen by a Provider: 09:06 Sepsis Event Evaluation Height, Weight, BMI Height: '" Weight: lbs. oz. kg; 32.80 BMI Method: Exam Exam Patient acknowledged, consented, and participated in this virtual visit which was conducted using real time audio/video Vital Signs Date Time Temp Pulse Resp B/P (MAP) Pulse Ox O2 Delivery O2 Flow Rate FiO2 05/19/21 08:00 98 99/67 (71) 94 NIV Bilevel 45.00 05/19/21 07:56 35.6 05/19/21 07:50 113 30 94 45.00 05/19/21 07:00 105 30 102/84 (88) 96 NIV Bilevel 70.00 05/19/21 07:00 97 05/19/21 06:50 92 NIV Bilevel 70.00 05/19/21 06:00 131 20 90/77 (81) 91 Vapotherm 40.00 100.00 05/19/21 05:48 93 Vapotherm 40.00 100.00 05/19/21 05:00 105 23 102/91 (95) 97 NIV Bilevel 65.00 05/19/21 04:00 129 21 99/70 (80) 96 NIV Bilevel 65.00 05/19/21 04:00 97 NIV Bilevel 65 05/19/21 03:00 98 24 103/80 (88) 95 NIV Bilevel 65.00 05/19/21 02:58 36.4 NIV Bilevel 65.00 05/19/21 02:00 96 19 110/77 (88) 98 NIV Bilevel 65.00 05/19/21 01:58 89 28 96 55.00 05/19/21 01:00 90 05/19/21 01:00 117 16 110/70 (83) 99 NIV Bilevel 65.00 05/19/21 00:07 94 NIV Bilevel 65 05/19/21 00:00 112 30 96/82 (87) 94 NIV Bilevel 65.00 05/18/21 23:00 102 27 99/73 (82) 93 NIV Bilevel 65.00 05/18/21 23:00 36.2 NIV Bilevel 65.00 05/18/21 22:46 104 05/18/21 22:07 91 28 96 70.00 05/18/21 22:00 90 27 107/84 (92) 93 NIV Bilevel 65.00 05/18/21 21:00 96 26 102/79 (87) 94 NIV Bilevel 65.00 05/18/21 21:00 NIV Bilevel 65.00 05/18/21 20:46 96 05/18/21 20:00 96 35 109/83 (92) 93 Vapotherm 40.00 100.00 05/18/21 20:00 92 Vapotherm 40.00 100 05/18/21 19:00 100 05/18/21 19:00 89 34 112/90 (97) 92 Vapotherm 40.00 100.00 05/18/21 19:00 36.4 Vapotherm 40.00 100.00 05/18/21 18:25 89 Vapotherm 40.00 100 05/18/21 18:00 88 12 110/85 (93) 98 NIV Bilevel 60.00 05/18/21 17:00 107 24 106/85 (92) 96 NIV Bilevel 60.00 05/18/21 16:00 36.1 05/18/21 16:00 115 28 121/103 (109) 92 NIV Bilevel 60.00 05/18/21 16:00 NIV Bilevel 65 05/18/21 15:14 124 27 97 70.00 05/18/21 15:00 124 23 117/92 (100) 81 NIV Bilevel 60.00 05/18/21 14:00 109 37 112/87 (95) 89 NIV Bilevel 60.00 05/18/21 13:00 132 05/18/21 13:00 138 108/87 (94) 92 NIV Bilevel 60.00 05/18/21 12:00 Vapotherm 80 05/18/21 12:00 118 21 104/85 (91) 98 NIV Bilevel 60.00 05/18/21 12:00 36.2 05/18/21 11:00 129 13 101/75 (84) 98 NIV Bilevel 60.00 05/18/21 10:45 95 Vapotherm 35.00 80 05/18/21 10:00 112 18 90/78 (82) 96 NIV Bilevel 60.00 I & O 05/19/21 07:00 Intake Total 1180 ml Output Total 1150 ml Balance 30 ml Height & Weight Height: '" Weight: lbs. oz. kg; 32.80 BMI Method: General Appearance: Other (Maintained on BiPAP in moderate distress) HEENT: No Scleral Icterus (L), No Scleral Icterus (R) Neck: Normal Inspection, Supple Respiratory: No Wheezing Cardiovascular: Irregularly Irregular, Tachycardia Capillary Refill: Less Than 3 Seconds Gastrointestinal: normal bowel sounds, non tender, soft; No guarding, No rebound Extremity: Normal Capillary Refill, No Calf Tenderness, No Pedal Edema Neurologic/Psychiatric: Alert Results Lab Laboratory Tests 05/18/21 03:10 05/19/21 02:45 Assessment/Plan Assessment/Plan (Tele-ICU Physician , Progress Note ) Available chart/ vitals / labs / Images reviewed Video assessment done using teleICU camera, rest of exam as per RN Discussed with RN Events overnight : cardizem gtt , bipap at nigh Afebrile I/O = pos 800 Drips: Pressors: , hemodynamically stable EXAM PER RN Consultants: Hospital course: 05/16 - ARF 05/17 - vapotherm 40L 90% 05/18-vapotherm 35L 80 % A/P AHRF / ARDS due to severe COVID19 ( ? pNA , effusion on left , NO PE on CT 05/16 ) -vapotherm 35L 80 % , BIPAP was to 45% last night -IMPROVING -prone position if able SOZT-Txrszeqllum-9/COVID-19 PNA ( Not vaccinated , Dx 05/05 asymptomatic - as pre-op testing , symptoms 05/08 admited 05/16 ) -not candidate for Remdesivir- -Steroids IV - started 05/16 -baricitinib 05/16 -Hypercoagulable state , DDIMER on 05/15 =4.4 -> on Eliquis already full dose ( no evidence of large PE on CT ) s/p Whipple ( gallstone pancreatitis -drain in place -Continue home IV abx - on home dose octreotide A fib - rate controlled on cardizem gtt - at home on sotalol and metoprolol, amlodipine LEFT plural effusion ( Ct 05/16- - stable by cxr , no indication fot thora now Diabetes Mellitus - ISS , close f/up on steroids - PCP adjusting dose today Anemia - slow trend down , no active bleeding CRUZITO -CPAP ? at home Lines : PICC on right ( presented onadmission - ? date placement ) (Central Line Necessity Reviewed) [place]: 05/16 OG: Nutrition: poor Analgesia: Anxiety/ delirium VTE Prophylaxis: eliquis Stress Ulcer Prophylaxis: PPI Glycemic Control: Plans in collaboration with bedside consultants and IM MDs. Discussed with RN to reach out if any questions or concerns A total of 36 minutes of critical care time was devoted to this patient today, required to treat and/or prevent further deterioration of critical care condition ( as above) . CHELY MURPHY MD May 19, 2021 09:06
[2021-05-19] MEDS: ASPIRIN E.C. 81 MG (ECOTRIN) TAB PO SCH (09:13)
[2021-05-19] MEDS: dexAMETHasone 6 MG TAB (DECADRON) PO SCH (09:13)
[2021-05-19] MEDS: APIXABAN 5 MG (ELIQUIS) TABLET PO SCH ×2 (09:13→20:47)
[2021-05-19] MEDS: PYRIDOXINE (VITAMIN B-6) 50 MG TABLET PO SCH (09:13)
[2021-05-19] MEDS: SOTALOL 80 MG (BETAPACE) TAB PO SCH ×2 (09:13→20:47)
[2021-05-19] MEDS: CYANOCOBALAMIN 1,000 MCG (VITAMIN B-12) TABLET PO SCH (09:13)
[2021-05-19] MEDS ORDERED: DIGOXIN 0.25 MG/ML (LANOXIN) 2 ML AMP IV ONE (09:15)
--- NOTE | 2021-05-19 10:22 | Progress Note - Hospitalist ---
Subjective HPI/CC On Admission Date Seen by Provider: May 19, 2021 Time Seen by Provider: 10:19 Pt is a 61yoCM with a PMH of gallstone pancreatitis s/p whipple on chronic daily abx with abdominal drain in place who presented to the ER due to hypoxia. He was tested for COVID on 05/05 in preparation for an outpatient procedure and was found to be positive. A couple of days later he became symptomatic. He is unvaccinated against COVID19. He called EMS yesterday and was found to be hypoxic in the 60-70s. He was placed on a NRB and brought to the ER. He was admitted to the ICU here after attempts t transfer were exhausted due to re gional diversion. This morning he reports breathing easier but is still on BiPAP. Subjective/Events-last exam Pt reports feeling tired today. No specific complaints. Was on BiPAP yesterday afternoon and throught henight. Discussed with RN and he states he pushed it pretty hard yesterday. Advised patient to stay on BiPAP if tired but if felt better could trial off again. Objective Exam Vital Signs Vital Signs Date Time Temp Pulse Resp B/P (MAP) Pulse Ox O2 Delivery O2 Flow Rate FiO2 05/19/21 10:00 120 103/90 (94) 92 NIV Bilevel 45.00 05/19/21 07:56 35.6 05/19/21 07:50 30 05/19/21 04:00 65 Capillary Refill : Less Than 3 Seconds General Appearance: No Apparent Distress, Chronically ill Respiratory: Decreased Breath Sounds, Other (on BiPAP) Cardiovascular: No Murmur, Irregularly Irregular Gastrointestinal: Normal Bowel Sounds Neurologic/Psychiatric: Alert, Oriented x3 Results/Procedures Lab Laboratory Tests 05/19/21 02:45 Patient resulted labs reviewed. Imaging: Reviewed Imaging Report Assessment/Plan Assessment and Plan Assess & Plan/Chief Complaint Acute hypoxic respiratory failure due to COVID19 Chronic respiratory failure on 2lpm Vapotherm yesterday and BiPAP today, clinically does not look as well today- remain in ICU Not a candidate for Remdesivir due to high oxygen requirement Decadron TeleICU consulted Actemra not available IS MAT protocol started baricitinib but given what we know now about longstanding intrabdominal infection will stop and risk outweigh potential benefits, DC-ed s/p Whipple drain in place Continue home IV abx Continue home octreotide a-fib HTN HLD Continue sotalol and metoprolol increase, metoprolol dose today Hold amlodipine and BP normal to soft Continue eliquis Continue statin Critical Care Critically Ill Patient TEOFILO MILES MD May 19, 2021 10:22
[2021-05-19] MEDS: ANIDULAFUNGIN 100 MG/NS 100 ML IV SCH ×2 (20:46)
[2021-05-20 02:36] VITALS: BP 121/82
[2021-05-20] MEDS: RT-ALBUTEROL HFA 8.5 GM INHALER IH SCH ×7 (02:36→22:26)
[2021-05-20 03:41] LABS: BASOPHILS % (AUTO) 0 % (0-10); EOSINOPHILS % (AUTO) 0 % (0-10); HEMATOCRIT 31 % (40-54); HEMOGLOBIN 9.4 g/dL (13.3-17.7); LYMPHOCYTES # (AUTO) 0.4 10^3/uL (1.0-4.0); LYMPHOCYTES % (AUTO) 3 % (12-44); MEAN CORPUSCULAR HEMOGLOBIN 28 pg (25-34); MEAN CORPUSCULAR HGB CONC 31 g/dL (32-36); MEAN CORPUSCULAR VOLUME 90 fL (80-99); MEAN PLATELET VOLUME 11.5 fL (9.0-12.2); MONOCYTES % (AUTO) 7 % (0-12); NEUTROPHILS # (AUTO) 12.8 10^3/uL (1.8-7.8); NEUTROPHILS % (AUTO) 89 % (42-75); PLATELET COUNT 382 10^3/uL (130-400); WHITE BLOOD COUNT 14.4 10^3/uL (4.3-11.0)
[2021-05-20 03:50] LABS: POTASSIUM 4.8 MMOL/L (3.6-5.0)
[2021-05-20 03:52] LABS: CALCIUM 8.7 MG/DL (8.5-10.1)
[2021-05-20 03:56] LABS: CREATININE SERUM 0.79 MG/DL (0.60-1.30); PHOSPHORUS 2.4 MG/DL (2.3-4.7)
[2021-05-20 03:58] LABS: MAGNESIUM 2.3 MG/DL (1.6-2.4)
[2021-05-20] MEDS: MAGNESIUM 1 GM/100 ML IVPB 100 ML IV SCH (04:56)
[2021-05-20] MEDS: KCL 20 MEQ TAB (K-DUR) PO SCH (04:56)
[2021-05-20] MEDS: POTASSIUM CL 10MEQ/50ML IVPB 50 ML IV SCH (04:56)
[2021-05-20] MEDS: dilTIAZem DRIP PRE-MIX 125 ML IV SCH (05:27)
[2021-05-20] MEDS: MEROPENEM 1,000 MG/SWFI 20 ML IV PUSH IV SCH ×6 (05:27→21:08)
[2021-05-20] MEDS: inSUlin ASPART (NovoLOG) 1 UNIT/0.01 ML (CHARGE PER UNIT) SC SCH ×4 (05:27→20:08)
[2021-05-20] MEDS: OCTREOTIDE (FOR SQ USE) 100 MCG/ML VIAL (SandoSTATIN) SC SCH ×3 (05:28→21:08)
[2021-05-20] MEDS: CYANOCOBALAMIN 1,000 MCG (VITAMIN B-12) TABLET PO SCH (05:28)
[2021-05-20] MEDS: CATHETER FLUSH 10 ML SYR IV SCH ×3 (05:28→22:46)
[2021-05-20 07:35] VITALS: BP 124/79
[2021-05-20] MEDS: dexAMETHasone 6 MG TAB (DECADRON) PO SCH (08:48)
[2021-05-20] MEDS: PYRIDOXINE (VITAMIN B-6) 50 MG TABLET PO SCH (08:48)
--- NOTE | 2021-05-20 08:48 | Progress Note - Hospitalist ---
Subjective HPI/CC On Admission Date Seen by Provider: May 20, 2021 Time Seen by Provider: 08:44 Pt is a 61yoCM with a PMH of gallstone pancreatitis s/p whipple on chronic daily abx with abdominal drain in place who presented to the ER due to hypoxia. He was tested for COVID on 05/05 in preparation for an outpatient procedure and was found to be positive. A couple of days later he became symptomatic. He is unvaccinated against COVID19. He called EMS yesterday and was found to be hypoxic in the 60-70s. He was placed on a NRB and brought to the ER. He was admitted to the ICU here after attempts t transfer were exhausted due to re gional diversion. This morning he reports breathing easier but is still on BiPAP. Subjective/Events-last exam Pt reports feeling fine today. Was able to get off BiPAP some yesterday for Vapotherm. Is supposed to have abd drain pulled Saturday but unsure of plan now. Objective Exam Vital Signs Vital Signs Date Time Temp Pulse Resp B/P (MAP) Pulse Ox O2 Delivery O2 Flow Rate FiO2 05/20/21 08:00 77 14 127/81 (96) 97 NIV Bilevel 50.00 05/20/21 08:00 35.8 05/20/21 04:00 60 Capillary Refill : Less Than 3 Seconds General Appearance: No Apparent Distress, Chronically ill Respiratory: Decreased Breath Sounds; No Wheezing; Other (on BiPAP) Cardiovascular: No JVD, Irregularly Irregular (rate improved) Neurologic/Psychiatric: Alert, Oriented x3 Results/Procedures Lab Laboratory Tests 05/20/21 03:20 Patient resulted labs reviewed. Imaging: Reviewed Imaging Report Assessment/Plan Assessment and Plan Assess & Plan/Chief Complaint Acute hypoxic respiratory failure due to COVID19 Chronic respiratory failure on 2lpm Vapotherm and BiPAP alternating still, slow progress Not a candidate for Remdesivir due to high oxygen requirement Decadron TeleICU consulted Actemra not available IS MAT protocol started baricitinib but given what we know now about longstanding intrabdominal infection will stop and risk outweigh potential benefits, DC-ed PT ordered as has not been OOB s/p Whipple drain in place- will call [facility] Saturday to see about potential removal Continue home IV abx Continue home octreotide a-fib HTN HLD Continue sotalol and metoprolol increase, metoprolol dose today Hold amlodipine and BP normal to soft Continue eliquis Continue statin Currently on diltiazem gtt Cardiology consulted, appreciate recs DVt ppx: Eliquis Critical Care Critically Ill Patient TEOFILO MILES MD May 20, 2021 08:48
--- NOTE | 2021-05-20 08:51 | Tele-ICU Progress Note ---
Subjective Date Seen by a Provider: May 20, 2021 Time Seen by a Provider: 08:20 Subjective/Events-last exam Patient here today remained on Vapotherm. He is going back and forth between Vapotherm and BiPAP so far tolerating well.. Apparently had a dark stool advised to check stool for guaiac. He does have a Covid19 pneumonia his Cardizem drip is being turned off and will be started on oral Cardizem. Sepsis Event Evaluation Height, Weight, BMI Height: '" Weight: lbs. oz. kg; 32.80 BMI Method: Exam Exam Patient acknowledged, consented, and participated in this virtual visit which was conducted using real time audio/video Vital Signs Date Time Temp Pulse Resp B/P (MAP) Pulse Ox O2 Delivery O2 Flow Rate FiO2 05/20/21 08:00 77 14 127/81 (96) 97 NIV Bilevel 50.00 05/20/21 08:00 35.8 05/20/21 07:35 78 36 94 50.00 05/20/21 07:00 78 27 123/86 (98) 96 NIV Bilevel 55.00 05/20/21 07:00 72 05/20/21 06:00 63 30 116/67 (83) 96 NIV Bilevel 55.00 05/20/21 05:39 94 NIV Bilevel 55.00 05/20/21 05:00 73 23 123/73 (90) 96 NIV Bilevel 60.00 05/20/21 04:00 67 28 121/79 (93) 95 NIV Bilevel 60.00 05/20/21 04:00 94 NIV Bilevel 60 05/20/21 03:00 68 24 124/85 (98) 97 NIV Bilevel 60.00 05/20/21 03:00 36.4 05/20/21 02:36 69 17 97 60.00 05/20/21 02:00 82 13 120/84 (96) 96 NIV Bilevel 60.00 05/20/21 01:00 80 05/20/21 01:00 64 18 122/76 (91) 97 NIV Bilevel 60.00 05/20/21 00:00 96 NIV Bilevel 60 05/20/21 00:00 78 27 121/77 (92) 97 NIV Bilevel 60.00 05/20/21 00:00 35.7 NIV Bilevel 60.00 05/19/21 23:00 70 28 126/84 (98) 99 NIV Bilevel 60.00 05/19/21 22:47 72 05/19/21 22:33 NIV Bilevel 60.00 05/19/21 22:07 91 Vapotherm 35.00 80 05/19/21 22:00 67 18 125/81 (96) 92 Vapotherm 35.00 80.00 05/19/21 21:00 69 18 123/78 (93) 93 Vapotherm 35.00 80.00 05/19/21 20:47 74 05/19/21 20:30 Vapotherm 35.00 80.00 05/19/21 20:00 74 21 124/72 (89) 95 NIV Bilevel 50.00 05/19/21 20:00 92 Vapotherm 35.00 80 05/19/21 19:29 35.0 05/19/21 19:00 76 05/19/21 19:00 68 22 118/71 (87) 95 NIV Bilevel 50.00 05/19/21 19:00 NIV Bilevel 50.00 05/19/21 18:21 91 Vapotherm 35.00 80 05/19/21 18:00 80 25 128/81 (97) 97 NIV Bilevel 50.00 05/19/21 17:00 73 103/70 (81) 95 NIV Bilevel 50.00 05/19/21 16:18 89 NIV Bilevel 50.00 05/19/21 16:04 35.3 05/19/21 16:04 90 Vapotherm 35.00 80 05/19/21 16:00 94 NIV Bilevel 50 05/19/21 16:00 69 32 110/70 (83) 94 NIV Bilevel 50.00 05/19/21 15:00 70 24 125/80 (95) 95 NIV Bilevel 50.00 05/19/21 14:00 76 32 127/77 (94) 94 NIV Bilevel 50.00 05/19/21 13:00 69 117/70 (84) 93 NIV Bilevel 50.00 05/19/21 13:00 65 05/19/21 12:00 71 20 126/74 (91) 92 NIV Bilevel 50.00 05/19/21 12:00 35.1 05/19/21 12:00 95 NIV Bilevel 50 05/19/21 11:57 NIV Bilevel 50.00 05/19/21 11:09 94 Vapotherm 30.00 80 05/19/21 11:00 85 115/72 (86) 93 NIV Bilevel 45.00 05/19/21 10:00 120 103/90 (94) 92 NIV Bilevel 45.00 05/19/21 09:00 92 112/83 (93) 94 NIV Bilevel 45.00 I & O 05/20/21 07:00 Intake Total 1330 ml Output Total 1250 ml Balance 80 ml Height & Weight Height: '" Weight: lbs. oz. kg; 32.80 BMI Method: General Appearance: No Apparent Distress, Chronically ill HEENT: PERRL/EOMI, Moist Mucous Membranes; No Scleral Icterus (L), No Scleral Icterus (R) Neck: Normal Inspection, Supple Respiratory: No Accessory Muscle Use, Decreased Breath Sounds, Other (on BiPAP) Cardiovascular: Regular Rate, Rhythm, No JVD, No Murmur Capillary Refill: Less Than 3 Seconds Gastrointestinal: normal bowel sounds, non tender, soft; No guarding, No rebound Extremity: Normal Capillary Refill, No Calf Tenderness, No Pedal Edema Neurologic/Psychiatric: Alert, Oriented x3, Normal Mood/Affect Other comments PE per RN Results Lab Laboratory Tests 05/19/21 02:45 05/20/21 03:20 Meds reviewed Radiology cxr reviewed Assessment/Plan Assessment/Plan 1. Acute and chronic hypoxic respiratory failure due to Covid19 pneumonia. 2. Covid19 pneumonia 3. 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 History of A. fib 5. Hypertension hyperlipidemia. 6. Patient on Eliquis for atrial fibrillation. Recommendations continue BiPAP/Vapotherm. 2. A. fib poor cardiology service 3. Continue antibiotic therapy. 4. Continue Decadron. 5. Barcinitib is discontinued due to potential intra-abdominal infection due to surgery Critical Care: Critically Ill Patient Time spent with patient (mins): 25 CATE MCGILL MD May 20, 2021 08:51
[2021-05-20] MEDS: DIGOXIN 0.25 MG (LANOXIN) TAB PO SCH (09:16)
[2021-05-20] MEDS: ASPIRIN E.C. 81 MG (ECOTRIN) TAB PO SCH (09:16)
[2021-05-20] MEDS: APIXABAN 5 MG (ELIQUIS) TABLET PO SCH ×2 (09:18→20:08)
[2021-05-20] MEDS: SOTALOL 80 MG (BETAPACE) TAB PO SCH ×2 (09:18→20:07)
--- NOTE | 2021-05-20 09:41 | Cardiology Progress Note ---
Subjective Date Seen by Provider: May 20, 2021 Time Seen by Provider: 09:39 Subjective/Events-last exam Patient was seen today, laying down in bed, on oxygen, improving slowly Review of Systems General: Fatigue, Malaise Pulmonary: Dyspnea Objective-Cardiology Exam Last Set of Vital Signs Vital Signs 05/20/21 05/20/21 05/20/21 04:00 08:00 09:00 Temp 35.8 Pulse 75 Resp 26 B/P (MAP) 112/68 (83) Pulse Ox 97 O2 Delivery NIV Bilevel O2 Flow Rate 50.00 FiO2 60 I&O Intake and Output 05/20/21 00:00 Intake Total 1280 ml Output Total 1350 ml Balance -70 ml Intake Oral 1280 ml Output Urine Total 1350 ml General: Alert HEENT: Atraumatic Neck: Supple Heart: Other (Atrial fibrillation) Extremities: No Clubbing, No Cyanosis Skin: No Rashes Psych/Mental Status: Mental Status NL Results Lab Laboratory Tests 05/20/21 03:20 A/P-Cardiology Admission Diagnosis Acute respiratory failure COVID-19 pneumonia Atrial fibrillation Hypotension Assessment/Plan Acute respiratory failure secondary to COVID-19 pneumonia, some improvement today. Managed by primary care team Paroxysmal atrial fibrillation, maintained on sotalol 120 twice daily, heart rate is better controlled, still in atrial fibrillation, I will switch Cardizem drip to oral and monitor tolerance and response History of Whipple procedure. Has drain in place. Hypertension, better controlled at this time. Continue to monitor Hyperlipidemia, monitor lipids. Diabetes mellitus, hyperglycemia, probably secondary to steroid, managed by primary care team TIAGO GILL MD May 20, 2021 09:41
[2021-05-20 11:29] VITALS: BP 109/67
--- NOTE | 2021-05-20 13:25 | Physical Therapy Evaluation ---
PT Evaluation-General Medical Diagnosis Admission Date May 15, 2021 at 18:17 Medical Diagnosis: Covid Onset Date: May 15, 2021 Therapy Diagnosis Therapy Diagnosis: debility Precautions Precautions/Isolations: Airborne Isolation, Fall Prevention, Standard Precautions Referral Physician: Fior Reason for Referral: Evaluation/Treatment Prior Prior Level of Function SCALE: Activities may be completed with or without assistive devices. 1-Vmyndylmay-cxyvcnl completes the activity by him/herself with no assistance from a helper. 5-Set-up or Clean-up Assistance-helper sets up or cleans up; patient completes activity. [place] assists only prior to or following the activity. 4-Supervision or Touching Assistance-helper provides verbal cues and/or touching/steadying and/or contact guard assistance as patient completes activity. Assistance may be provided throughout the activity or intermittently. 3-Partial/Moderate Assistance-helper does LESS THAN HALF the effort. [place] lifts, holds or supports trunk or limbs, but provides less than half the effort. 2-Substantial/Maximal Assistance-helper does MORE THAN HALF the effort. [place] lifts or holds trunk or limbs and provides more than half the effort. 4-Xuyumiirc-sjtlvz does ALL the effort. Patient does none of the effort to complete the activity. Or, the assistance of 2 or more helpers is required for the patient to complete the activity. If activity was not attempted, code reason: 7-Patient Refused. 9-Not Applicable-not attempted and the patient did not perform the activity before the current illness, exacerbation or injury. 10-Not Attempted due to Environmental Limitations-(lack of equipment, weather restraints, etc.). 88-Not Attempted due to Medical Conditions or Safety Concerns. Bed Mobility: 6 Transfers (B,C,W/C): 6 Gait: 6 Stairs: 6 PT Evaluation-Current Subjective States that he is willing to try therapy but doesn't feel great. ROM/Strength ROM Lower Extremities WFL Strength Lower Extremities 4+/5 Transfers Roll Left to Right (QC): 4 Sit to Lying (QC): 4 Lying to Sitting/Side of Bed(Q: 4 No sit to stand secondary to O2 dropping when sitting EOB Gait Does the Patient Walk?: No and Walking Goal IS indicated Balance Sitting Static: Good Sitting Dynamic: Fair Assessment/Needs 61 y.o. male with severe debility. He should do well with skilled therapy/ Rehab Potential: Good PT Short Term Goals Short Term Goals Time Frame: May 27, 2021 Roll Left & Right: 5 Sit to lyin Lying to sitting on side of be: 5 Sit to stand: 5 Chair/lin-bx-acnqe transfer: 5 Toilet transfer: 5 Car transfer: 5 Walk 10 feet: 5 Walk 50 feet with two turns: 5 Walk 150 feet: 5 Walking 10ft on uneven surface: 5 1 step (curb): 5 4 steps: 5 12 steps: 5 PT Window Tinter Goals Longterm Goals PT Longterm Goals Time Frame: Jun 03, 2021 Roll Left & Right (QC): 6 Sit to Lying (QC): 6 Lying-Sitting on Side/Bed(QC): 6 Sit to Stand (QC): 6 Chair/Dky-zt-Qwmdg Xfer(QC): 6 Toilet Transfer (QC): 6 Car Transfer (QC): 6 Does the Patient Walk: No and Walking Goal IS indicated Walk 10 feet (QC): 6 Walk 50ft with 2 Turns (QC): 6 Walk 150 ft (QC): 6 Walking 10ft on Uneven Surface: 6 1 Step (curb) (QC): 6 4 Steps (QC): 6 12 Steps (QC): 6 Picking up an Object (QC): 6 PT Plan Problem List Problem List: Activity Tolerance, Functional Strength, Safety, Balance, Gait, Transfer, Bed Mobility, ROM Treatment/Plan Treatment Plan: Continue Plan of Care Treatment Plan: Bed Mobility, Functional Activity Demi, Functional Strength, Gait, Safety, Therapeutic Exercise, Transfers Treatment Duration: Jun 03, 2021 Frequency: 11 times per week Time/GCodes Time In: 1245 Time Out: 1300 Total Billed Treatment Time: 15 Total Billed Treatment 1, MARY LOU Albert C x 15 CAROL BAUTISTA PT May 20, 2021 13:25
[2021-05-20] MEDS: ANIDULAFUNGIN 100 MG/NS 100 ML IV SCH ×2 (18:55)
[2021-05-20 22:27] VITALS: BP 132/84
[2021-05-21 02:02] VITALS: BP 132/84
[2021-05-21] MEDS: RT-ALBUTEROL HFA 8.5 GM INHALER IH SCH ×5 (02:02→22:29)
[2021-05-21 04:15] LABS: BASOPHILS % (AUTO) 0 % (0-10); EOSINOPHILS % (AUTO) 0 % (0-10); HEMATOCRIT 32 % (40-54); HEMOGLOBIN 9.9 g/dL (13.3-17.7); LYMPHOCYTES # (AUTO) 0.6 10^3/uL (1.0-4.0); LYMPHOCYTES % (AUTO) 3 % (12-44); MEAN CORPUSCULAR HEMOGLOBIN 28 pg (25-34); MEAN CORPUSCULAR HGB CONC 31 g/dL (32-36); MEAN CORPUSCULAR VOLUME 89 fL (80-99); MEAN PLATELET VOLUME 11.4 fL (9.0-12.2); MONOCYTES # (AUTO) 1.4 10^3/uL (0.0-1.0); MONOCYTES % (AUTO) 8 % (0-12); NEUTROPHILS # (AUTO) 16.1 10^3/uL (1.8-7.8); NEUTROPHILS % (AUTO) 87 % (42-75); PLATELET COUNT 453 10^3/uL (130-400); WHITE BLOOD COUNT 18.4 10^3/uL (4.3-11.0)
[2021-05-21 04:56] LABS: POTASSIUM 4.9 MMOL/L (3.6-5.0)
[2021-05-21 04:57] LABS: CALCIUM 8.7 MG/DL (8.5-10.1)
[2021-05-21 05:02] LABS: CREATININE SERUM 0.79 MG/DL (0.60-1.30); PHOSPHORUS 2.2 MG/DL (2.3-4.7)
[2021-05-21] MEDS: MAGNESIUM 1 GM/100 ML IVPB 100 ML IV SCH (05:03)
[2021-05-21] MEDS: CATHETER FLUSH 10 ML SYR IV SCH ×3 (05:03→22:51)
[2021-05-21] MEDS: inSUlin ASPART (NovoLOG) 1 UNIT/0.01 ML (CHARGE PER UNIT) SC SCH ×4 (05:03→21:19)
[2021-05-21] MEDS: KCL 20 MEQ TAB (K-DUR) PO SCH (05:03)
[2021-05-21] MEDS: POTASSIUM CL 10MEQ/50ML IVPB 50 ML IV SCH (05:03)
[2021-05-21 05:04] LABS: MAGNESIUM 2.4 MG/DL (1.6-2.4)
[2021-05-21] MEDS: CYANOCOBALAMIN 1,000 MCG (VITAMIN B-12) TABLET PO SCH (06:02)
[2021-05-21] MEDS: MEROPENEM 1,000 MG/SWFI 20 ML IV PUSH IV SCH ×6 (06:03→22:44)
[2021-05-21 07:44] VITALS: BP 129/74
--- NOTE | 2021-05-21 08:27 | Progress Note - Hospitalist ---
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 He was tested for COVID on 05/05 in preparation for an outpatient procedure and was found to be positive. A couple of days later he became symptomatic. He is unvaccinated against COVID19. He called EMS yesterday and was found to be hypoxic in the 60-70s. He was placed on a NRB and brought to the ER. He was admitted to the ICU here after attempts t transfer were exhausted due to re gional diversion. This morning he reports breathing easier but is still on BiPAP. Subjective/Events-last exam Pt reports feeling ok. Would like to get up and into the chair. Rn and RT to bedside to help. Was on Vapotherm during meals yesterday. Objective Exam Vital Signs Vital Signs Date Time Temp Pulse Resp B/P (MAP) Pulse Ox O2 Delivery O2 Flow Rate FiO2 05/21/21 08:00 74 19 129/86 (107) 95 NIV Bilevel 45.00 05/21/21 07:37 35.4 05/21/21 04:20 45 Capillary Refill : Less Than 3 Seconds General Appearance: No Apparent Distress, Chronically ill, Obese Respiratory: No Accessory Muscle Use, Rhonci; No Wheezing; Other (on BiPAP) Cardiovascular: Regular Rate, Rhythm, No Murmur Gastrointestinal: Normal Bowel Sounds, Non Tender, Soft Neurologic/Psychiatric: Alert, Oriented x3 Results/Procedures Lab Laboratory Tests 05/21/21 04:05 Patient resulted labs reviewed. Imaging: Reviewed Imaging Report Assessment/Plan Assessment and Plan Assess & Plan/Chief Complaint Acute hypoxic respiratory failure due to COVID19 Chronic respiratory failure on 2lpm Vapotherm and BiPAP alternating still, slow progress- consider [place] referral Not a candidate for Remdesivir due to high oxygen requirement Decadron TeleICU consulted Actemra not available IS MAT protocol started baricitinib but given what we know now about longstanding intrabdominal infection will stop and risk outweigh potential benefits, DC-ed PT ordered as has not been OOB- up to chair this AM WBC up, will get cultures and check procal s/p Whipple drain in place- will call [facility]'s Saturday to see about potential removal Continue home IV abx Continue home octreotide a-fib HTN HLD Continue sotalol, digoxin, diltiazem Hold amlodipine and BP normal Continue eliquis Continue statin Cardiology consulted, appreciate recs Hyperglycemia Likely due to steroids SSI and Levemir DVt ppx: Eliquis Critical Care Critically Ill Patient TEOFILO MILES MD May 21, 2021 08:27
--- NOTE | 2021-05-21 08:33 | Tele-ICU Progress Note ---
Subjective Date Seen by a Provider: May 21, 2021 Time Seen by a Provider: 12:00 Subjective/Events-last exam 61 yo M with COVID PNA, On vapotherm 30 lpm/FiO2 75%has bilateral infiltrates on CXR last done 05/18, on IV anti-fungal, on IV meropenem Hx of A fib on po cardizem, sotolotal, po dig a fib is chronic with V rate 60's to 70's has had dark stools but OBS neg and Hb stable at 9 Glu not well controlled, on levimer 10 U q am and sliding scale On Eliquis 5 bid, no active bleeding seen Sepsis Event Evaluation Height, Weight, BMI Height: '" Weight: lbs. oz. kg; 32.80 BMI Method: Exam Exam Patient acknowledged, consented, and participated in this virtual visit which was conducted using real time audio/video Vital Signs Date Time Temp Pulse Resp B/P (MAP) Pulse Ox O2 Delivery O2 Flow Rate FiO2 05/21/21 08:00 74 19 129/86 (107) 95 NIV Bilevel 45.00 05/21/21 07:44 71 38 93 45.00 05/21/21 07:37 35.4 05/21/21 07:00 70 05/21/21 07:00 71 12 126/73 (88) 94 NIV Bilevel 45.00 05/21/21 06:00 65 23 137/90 (106) 95 NIV Bilevel 45.00 05/21/21 05:00 67 21 138/87 (104) 95 NIV Bilevel 45.00 05/21/21 04:20 NIV Bilevel 45 05/21/21 04:00 66 13 137/85 (102) 94 NIV Bilevel 45.00 05/21/21 04:00 35.6 05/21/21 03:00 73 33 128/76 (93) 96 NIV Bilevel 45.00 05/21/21 02:02 69 27 96 45.00 05/21/21 02:00 75 25 119/82 (94) 95 NIV Bilevel 45.00 05/21/21 01:00 80 18 126/80 (95) 95 NIV Bilevel 45.00 05/21/21 01:00 80 05/21/21 00:46 NIV Bilevel 45 05/21/21 00:00 66 27 129/81 (97) 95 NIV Bilevel 45.00 05/21/21 00:00 36.0 05/20/21 23:00 78 28 128/77 (94) 96 NIV Bilevel 45.00 05/20/21 22:27 69 27 96 45.00 05/20/21 22:00 78 25 132/84 (100) 94 NIV Bilevel 45.00 05/20/21 21:10 NIV Bilevel 45.00 05/20/21 21:00 71 26 122/78 (93) 97 NIV Bilevel 55.00 05/20/21 20:21 Vapotherm 40.00 100 05/20/21 20:20 NIV Bilevel 55.00 05/20/21 20:02 36.0 72 23 113/70 (84) 90 Vapotherm 40.00 100.00 05/20/21 19:00 66 32 125/74 (91) 95 NIV Bilevel 50.00 05/20/21 19:00 71 05/20/21 18:32 94 Vapotherm 35.00 90 05/20/21 18:00 75 25 129/75 (93) 94 NIV Bilevel 50.00 05/20/21 17:00 75 18 125/73 (90) 94 NIV Bilevel 50.00 05/20/21 16:00 75 26 127/75 (92) 94 NIV Bilevel 50.00 05/20/21 16:00 94 NIV Bilevel 60 05/20/21 15:00 68 28 107/67 (80) 93 NIV Bilevel 50.00 05/20/21 14:00 66 22 129/74 (92) 95 NIV Bilevel 50.00 05/20/21 13:00 69 21 119/75 (90) 94 NIV Bilevel 50.00 05/20/21 12:45 56 05/20/21 12:00 94 Vapotherm 35.00 80 05/20/21 12:00 70 17 133/73 (93) 93 NIV Bilevel 50.00 05/20/21 11:29 69 27 96 45.00 05/20/21 11:27 35.7 05/20/21 11:00 70 18 122/78 (93) 95 NIV Bilevel 50.00 05/20/21 10:00 74 15 116/70 (85) 96 NIV Bilevel 50.00 05/20/21 09:00 75 26 112/68 (83) 97 NIV Bilevel 50.00 I & O 05/21/21 07:00 Intake Total 1045 ml Output Total 1475 ml Balance -430 ml Height & Weight Height: '" Weight: lbs. oz. kg; 32.80 BMI Method: General Appearance: No Apparent Distress, Chronically ill, Obese HEENT: PERRL/EOMI, Moist Mucous Membranes; No Scleral Icterus (L), No Scleral Icterus (R) Neck: Normal Inspection, Supple Respiratory: No Accessory Muscle Use, Decreased Breath Sounds, Rhonci; No Wheezing; Other (on BiPAP) Cardiovascular: Regular Rate, Rhythm, No Murmur, Irregularly Irregular Capillary Refill: Less Than 3 Seconds Gastrointestinal: normal bowel sounds, non tender, soft; No guarding, No rebound Extremity: Normal Capillary Refill, No Calf Tenderness, No Pedal Edema, Other (PICC placed on OSH, RUE, site looks ok) Neurologic/Psychiatric: Alert, Oriented x3 Results Lab Laboratory Tests 05/20/21 03:20 05/21/21 04:05 Assessment/Plan Assessment/Plan COVID PNA, keep on vaoptherm and BiPAP as needed A fib, appears under control IDDM, may need to go to bid on Levimer continue Eluquis for a fib Critical Care: Critically Ill Patient Time spent with patient (mins): 25 DARLEEN MCDONALD MD May 21, 2021 08:32
[2021-05-21] MEDS: DIGOXIN 0.25 MG (LANOXIN) TAB PO SCH (08:47)
[2021-05-21] MEDS: SOTALOL 80 MG (BETAPACE) TAB PO SCH ×2 (08:47→19:52)
[2021-05-21] MEDS: dexAMETHasone 6 MG TAB (DECADRON) PO SCH (08:47)
[2021-05-21] MEDS: ASPIRIN E.C. 81 MG (ECOTRIN) TAB PO SCH (08:47)
[2021-05-21] MEDS: PYRIDOXINE (VITAMIN B-6) 50 MG TABLET PO SCH (08:47)
[2021-05-21] MEDS: APIXABAN 5 MG (ELIQUIS) TABLET PO SCH ×2 (08:47→19:53)
[2021-05-21] MEDS: OCTREOTIDE (FOR SQ USE) 100 MCG/ML VIAL (SandoSTATIN) SC SCH ×3 (08:48→22:44)
--- NOTE | 2021-05-21 09:07 | Cardiology Progress Note ---
Subjective Date Seen by Provider: May 21, 2021 Time Seen by Provider: 09:06 Subjective/Events-last exam Patient was seen at bedside, sitting comfortably, feeling better Objective-Cardiology Exam Last Set of Vital Signs Vital Signs 05/21/21 05/21/21 05/21/21 05/21/21 04:20 07:37 08:00 08:32 Temp 35.4 Pulse 74 Resp 19 B/P (MAP) 129/86 (107) Pulse Ox 95 O2 Delivery Vapotherm O2 Flow Rate 30.00 75.00 FiO2 45 I&O Intake and Output 05/21/21 00:00 Intake Total 1235 ml Output Total 1475 ml Balance -240 ml Intake Oral 1165 ml IV Total 70 ml Output Urine Total 1475 ml # Bowel Movements 5 General: Alert HEENT: Atraumatic Neck: Supple Heart: Other (Atrial fibrillation) Extremities: No Clubbing, No Cyanosis Skin: No Rashes Psych/Mental Status: Mental Status NL Results Lab Laboratory Tests 05/21/21 04:05 A/P-Cardiology Admission Diagnosis Acute respiratory failure COVID-19 pneumonia Atrial fibrillation Hypotension Assessment/Plan Status post acute respiratory failure secondary to COVID-19 pneumonia, appears to be better today, sitting comfortably in a chair, managed by primary care team Paroxysmal atrial fibrillation, maintained on sotalol 120 twice daily, maintained on oral Cardizem and digoxin. Heart rate is better controlled. Continue to monitor History of Whipple procedure. Has drain in place. Hypertension, better controlled at this time. Continue to monitor Hyperlipidemia, monitor lipids. Diabetes mellitus, hyperglycemia, probably secondary to steroid, managed by p [facility] care team TIAGO GILL MD May 21, 2021 09:07
[2021-05-21 10:30] LABS: BILIRUBIN,URINE NEGATIVE (NEGATIVE); CLARITY,URINE CLEAR; COLOR,URINE DARK YELLOW; GLUCOSE, URINE (UA) 1+ (NEGATIVE); KETONES,URINE 1+ (NEGATIVE); LEUKOCYTE ESTERASE ,URINE NEGATIVE (NEGATIVE); NITRITE,URINE NEGATIVE (NEGATIVE); PROTEIN,URINE 1+ (NEGATIVE)
[2021-05-21 11:29] LABS: BACTERIA,URINE NEGATIVE /HPF; RBC,URINE 50-100 /HPF; YEAST,URINE LARGE /HPF
--- NOTE | 2021-05-21 15:51 | Consultation - Surgery ---
History of Present Illness History of Present Illness Patient Consulted On(maría/time) 05/21/21 15:45 Time Seen by Provider: 15:29 Reason for Visit: Atrial fibrillation History of Present Illness Surgery asked to consult regarding possible fistula. HPI per ED: 61-year-old male with past medical history of Whipple procedure from gallstone issues, chronic respiratory failure on 2 L for which the patient is unsure why, diabetes, CKD coming in via EMS from home due to hypoxia. The patient states he was having an elective procedure on 05 May, and had a Covid test done while asymptomatic at that time, and this test was positive. Since then he has been feeling more more short of breath with coughing. Reportedly his oxygen saturation was then the 60s to 70s. EMS placed him on a nonrebreather and give him a DuoNeb with improvement in his oxygen saturation to the 90s. He denies any personal history of blood clots in his legs or lungs. He is otherwise denying any other acute complaints. Of note, he gets his care from Dr. Rodrigues at [facility] in . He has a PICC line in place and says he gets two "antibiotics" multiple times a day with one of them being Micafungin. Pt states he had some drainage from the midline incision after surgery and was told it was from the surgery, but it stopped. Then about 2 weeks ago started draining again, it has never looked brown like it does today. He states he was never told the "fistula" was intestine, "just drainage from original surgery". He denies abdominal pain. He is tolerating diet with normal BMs. Allergies and Home Medications Allergies Coded Allergies: prochlorperazine (Verified Allergy, Unknown, 12/23/20) Home Medications Amlodipine Besylate 10 Mg Tablet, 10 MG PO DAILY, (Reported) Last Action: Reviewed Apixaban 5 Mg Tablet, 5 MG PO BID, (Reported) Last Action: Reviewed Aspirin 81 Mg Tablet., 81 MG PO DAILY, (Reported) Last Action: Continued Atorvastatin Calcium 40 Mg Tablet, 40 MG PO HS, (Reported) Last Action: Continued Cyanocobalamin (Vitamin B-12) 500 Mcg Tablet, 500 MCG PO DAILY, (Reported) Last Action: Converted Glipizide 5 Mg Tablet, 2.5 MG PO BID, (Reported) TAKES OF A 5MG TAB Last Action: Held Meropenem 1 Gm Vial, 1 GM IV Q8H, (Reported) FILLED 05-08-2021 Last Action: Reviewed Metoprolol Succinate 25 Mg Tab.er.24h, 25 MG PO HS, (Reported) Last Action: Continued Micafungin Sodium 100 Mg Vial, 100 MG IV DAILY, (Reported) FILLED 05-08-2021 Last Action: Reviewed Octreotide Acetate 200 Mcg/1 Ml Vial, 200 MCG SQ Q8H, (Reported) FILLED 05-08-2021 Last Action: Reviewed Pyridoxine HCl 50 Mg Tablet, 50 MG PO DAILY, (Reported) Last Action: Continued Sotalol HCl 120 Mg Tablet, 120 MG PO BID, (Reported) Last Action: Reviewed Patient Home Medication List Home Medication List Reviewed: Yes Past Fsiwesd-Lhorgh-Qhlabi Hx Patient Social History Smoking Status: Former Smoker 2nd Hand Smoke Exposure: No Recent Hopitalizations: No Alcohol Use?: No Have you traveled recently?: No Seasonal Allergies Seasonal Allergies: No Surgeries History of Surgeries: Yes Surgeries: Abdominal, Appendectomy, CABG Respiratory History of Respiratory Disorde: No Cardiovascular History of Cardiac Disorders: Yes Cardiac Disorders: Hypertension Neurological History of Neurological Disord: No Genitourinary History of Genitourinary Disor: No Gastrointestinal History of Gastrointestinal Di: Yes Gastrointestinal Disorders: Pancreatitis Musculoskeletal History of Musculoskeletal Dis: No Endocrine History of Endocrine Disorders: Yes Endocrine Disorders: Diabetes, Insulin dep HEENT History of HEENT Disorders: No Cancer History of Cancer: No Psychosocial History of Psychiatric Problem: No Integumentary History of Skin or Integumenta: No Blood Transfusions History of Blood Disorders: No Family Medical History Significant Family History: Diabetes (Mother and Father) Review of Systems-General Constitutional: fever, malaise, weakness EENTM: No blurred vision, No double vision, No mouth swelling, No epistaxis, No throat swelling Respiratory: cough, dyspnea on exertion; No hemoptysis; short of breath Cardiovascular: No chest pain, No edema; Hx of Intervention (CAABG); No palpita tions; vascular heart diseas Gastrointestinal: No abdominal pain, No hematemesis, No nausea, No vomiting Genitourinary: No dysuria, No frequency, No hematuria Musculoskeletal: No joint pain, No joint swelling, No muscle pain Skin: No change in color, No change in hair/nails Psychiatric/Neurological: Denies Anxiety, Denies Depressed, Denies Seizure, Denies Tremors Physical Exam-General Problems Physical Exam Vital Signs Vital Signs - First Documented 05/15/21 05/15/21 12:45 19:15 Temp 36.8 Pulse 104 Resp 48 B/P (MAP) 128/71 (90) Pulse Ox 97 O2 Delivery OxyMask O2 Flow Rate 6.00 FiO2 80 Capillary Refill : Less Than 3 Seconds General Appearance: WD/WN, mild distress Eyes: Bilateral Eye PERRL, Bilateral Eye EOMI HEENT: pharynx normal; No scleral icterus (R), No scleral icterus (L), No pale conjunctivae (R), No pale conjunctivae (L) Neck: non-tender, supple Respiratory: no respiratory distress, no accessory muscle use, decreased breath sounds (at bases), rhonchi; No wheezing; other (not currently on BiPap, only Vapotherm) Cardiovascular: no murmur, tachycardia Gastrointestinal: non tender, soft, no organomegaly, other (midline incision there is brown chunky drainage, pigtail drain just lateral no erythema around it, greyish fluid in tube) Back: no CVA tenderness, no vertebral tenderness Extremities: no pedal edema, no calf tenderness, normal capillary refill Neurologic/Psychiatric: alert, normal mood/affect, oriented x 3 Skin: normal color, warm/dry Lymphatic: no adenopathy (neck, axilla or groin) Data Review Labs Laboratory Tests 05/20/21 17:11: Glucometer 360H 05/20/21 20:06: Glucometer 329H 05/21/21 04:05: White Blood Count 18.4H, Red Blood Count 3.55L, Hemoglobin 9.9L, Hematocrit 32L, Mean Corpuscular Volume 89, Mean Corpuscular Hemoglobin 28, Mean Corpuscular Hemoglobin Concent 31L, Red Cell Distribution Width 14.8H, Platelet Count 453H, Mean Platelet Volume 11.4, Immature Granulocyte % (Auto) 2, Neutrophils (%) (Auto) 87H, Lymphocytes (%) (Auto) 3L, Monocytes (%) (Auto) 8, Eosinophils (%) (Auto) 0, Basophils (%) (Auto) 0, Neutrophils # (Auto) 16.1H, Lymphocytes # (Auto) 0.6L, Monocytes # (Auto) 1.4H, Eosinophils # (Auto) 0.0, Basophils # (Auto) 0.0, Immature Granulocyte # (Auto) 0.3H, Sodium Level 137, Potassium Level 4.9, Chloride Level 103, Carbon Dioxide Level 25, Anion Gap 9, Blood Urea Nitrogen 27H, Creatinine 0.79, Estimat Glomerular Filtration Rate 99, BUN/Creatinine Ratio 34, Glucose Level 177H, Calcium Level 8.7, Phosphorus Level 2.2L, Magnesium Level 2.4, Procalcitonin 0.03 05/21/21 10:27: Urine Color DARK YELLOW, Urine Clarity CLEAR, Urine pH 6.0, Urine Specific [place] 1.025H, Urine Protein 1+H, Urine Glucose (UA) 1+H, Urine Ketones 1+H, Urine Nitrite NEGATIVE, Urine Bilirubin NEGATIVE, Urine Urobilinogen 0.2, Urine Leukocyte Esterase NEGATIVE, Urine RBC (Auto) 2+H, Urine RBC 50-100H, Urine WBC NONE, Urine Crystals NONE, Urine Bacteria NEGATIVE, Urine Casts NONE, Urine Mucus NEGATIVE, Urine Yeast LARGEH, Urine Culture Indicated NO 05/21/21 10:31: Glucometer 356H 05/21/21 15:06: Glucometer 374H Microbiology 05/17/21 MRSA Screen - Final, Complete MRSA not isolated 05/15/21 Blood Culture - Final, Complete No growth Assessment/Plan Assessment/Plan Assessment/Plan 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 There is not really a fluid collection under here and so I doubt this is from "the old surgery site". Can see the pig-tail catheter in place, not really any fluid around this. He is actually improving his respiratory status. Pt will need to be NPO and will probably need TPN to manage this fistula. I would recommend sending him back to hospital and surgeons who did the initial surgery so they can manage this late complication; it will require long-term care, but may also be amenable to surgery. I believe this will best be taken care of at a Tertiary facility in light of his Whipple surgery; that is not anything we do at this institution. HALINA COLE DO May 21, 2021 15:50
[2021-05-21 18:43] VITALS: BP 117/69
[2021-05-21] MEDS: ANIDULAFUNGIN 100 MG/NS 100 ML IV SCH ×2 (19:52)
[2021-05-21 22:29] VITALS: BP 128/80
[2021-05-22 02:38] LABS: BASOPHILS % (AUTO) 0 % (0-10); EOSINOPHILS % (AUTO) 0 % (0-10); HEMATOCRIT 32 % (40-54); LYMPHOCYTES # (AUTO) 0.4 10^3/uL (1.0-4.0); LYMPHOCYTES % (AUTO) 2 % (12-44); MEAN CORPUSCULAR HEMOGLOBIN 28 pg (25-34); MEAN CORPUSCULAR HGB CONC 31 g/dL (32-36); MEAN CORPUSCULAR VOLUME 90 fL (80-99); MEAN PLATELET VOLUME 11.1 fL (9.0-12.2); MONOCYTES # (AUTO) 1.4 10^3/uL (0.0-1.0); MONOCYTES % (AUTO) 8 % (0-12); NEUTROPHILS # (AUTO) 16.3 10^3/uL (1.8-7.8); NEUTROPHILS % (AUTO) 88 % (42-75); PLATELET COUNT 490 10^3/uL (130-400); WHITE BLOOD COUNT 18.4 10^3/uL (4.3-11.0)
[2021-05-22 02:47] LABS: POTASSIUM 4.8 MMOL/L (3.6-5.0)
[2021-05-22 02:48] LABS: CALCIUM 8.8 MG/DL (8.5-10.1)
[2021-05-22 02:52] LABS: PHOSPHORUS 2.4 MG/DL (2.3-4.7)
[2021-05-22 02:53] LABS: CREATININE SERUM 0.75 MG/DL (0.60-1.30)
[2021-05-22 02:55] LABS: MAGNESIUM 2.4 MG/DL (1.6-2.4)
[2021-05-22 03:05] VITALS: BP 138/91
[2021-05-22] MEDS: RT-ALBUTEROL HFA 8.5 GM INHALER IH SCH ×5 (03:05→22:31)
[2021-05-22] MEDS: inSUlin ASPART (NovoLOG) 1 UNIT/0.01 ML (CHARGE PER UNIT) SC SCH ×4 (05:26→20:40)
[2021-05-22] MEDS: KCL 20 MEQ TAB (K-DUR) PO SCH (05:26)
[2021-05-22] MEDS: MAGNESIUM 1 GM/100 ML IVPB 100 ML IV SCH (05:26)
[2021-05-22] MEDS: POTASSIUM CL 10MEQ/50ML IVPB 50 ML IV SCH (05:26)
[2021-05-22] MEDS: OCTREOTIDE (FOR SQ USE) 100 MCG/ML VIAL (SandoSTATIN) SC SCH ×3 (05:27→22:00)
[2021-05-22] MEDS: CATHETER FLUSH 10 ML SYR IV SCH ×3 (05:30→20:29)
[2021-05-22] MEDS: MEROPENEM 1,000 MG/SWFI 20 ML IV PUSH IV SCH ×6 (05:30→20:30)
[2021-05-22] MEDS: CYANOCOBALAMIN 1,000 MCG (VITAMIN B-12) TABLET PO SCH (05:31)
[2021-05-22] MEDS: APIXABAN 5 MG (ELIQUIS) TABLET PO SCH ×2 (08:42→20:29)
[2021-05-22] MEDS: DIGOXIN 0.25 MG (LANOXIN) TAB PO SCH (08:42)
[2021-05-22] MEDS: dexAMETHasone 6 MG TAB (DECADRON) PO SCH (08:42)
[2021-05-22] MEDS: PYRIDOXINE (VITAMIN B-6) 50 MG TABLET PO SCH (08:42)
[2021-05-22] MEDS: ASPIRIN E.C. 81 MG (ECOTRIN) TAB PO SCH (08:42)
[2021-05-22] MEDS: SOTALOL 80 MG (BETAPACE) TAB PO SCH ×2 (08:43→20:29)
--- NOTE | 2021-05-22 10:21 | Tele-ICU Progress Note ---
Subjective Date Seen by a Provider: May 22, 2021 Time Seen by a Provider: 10:21 Sepsis Event Evaluation Height, Weight, BMI Height: '" Weight: lbs. oz. kg; 32.80 BMI Method: Exam Exam Patient acknowledged, consented, and participated in this virtual visit which was conducted using real time audio/video Vital Signs Date Time Temp Pulse Resp B/P (MAP) Pulse Ox O2 Delivery O2 Flow Rate FiO2 05/22/21 08:25 35.8 05/22/21 08:00 95 Vapotherm 25.00 60 05/22/21 07:22 91 Vapotherm 25.00 60 05/22/21 06:29 68 05/22/21 06:00 73 16 133/81 (98) 94 Vapotherm 25.00 60.00 05/22/21 05:40 Vapotherm 25.00 60.00 05/22/21 05:20 Vapotherm 20.00 40.00 05/22/21 05:00 74 10 121/91 (101) 98 NIV Bilevel 40.00 05/22/21 04:00 95 NIV Bilevel 40 05/22/21 04:00 36.8 NIV Bilevel 40.00 05/22/21 04:00 70 142/87 (108) 92 NIV Bilevel 40.00 05/22/21 03:05 71 22 94 50.00 05/22/21 03:00 68 23 138/91 (108) 94 NIV Bilevel 40.00 05/22/21 02:00 73 18 141/81 (108) 95 NIV Bilevel 40.00 05/22/21 01:00 70 136/81 (107) 95 NIV Bilevel 40.00 05/22/21 01:00 70 05/22/21 00:00 68 12 134/81 (103) 97 NIV Bilevel 40.00 05/21/21 23:00 98 NIV Bilevel 40 05/21/21 23:00 73 22 133/77 (90) 96 NIV Bilevel 40.00 05/21/21 22:45 36.5 NIV Bilevel 40.00 05/21/21 22:29 70 25 98 50.00 05/21/21 22:00 71 22 128/80 (98) 98 NIV Bilevel 50.00 05/21/21 21:20 NIV Bilevel 50.00 05/21/21 21:00 67 33 108/65 (76) 99 NIV Bilevel 60.00 05/21/21 20:00 76 26 108/78 (86) 100 NIV Bilevel 60.00 05/21/21 19:45 99 NIV Bilevel 60 05/21/21 19:43 36.2 05/21/21 19:00 72 05/21/21 19:00 72 131/86 (101) 99 NIV Bilevel 60.00 05/21/21 19:00 NIV Bilevel 60.00 05/21/21 18:43 71 31 98 60.00 05/21/21 18:00 72 27 130/78 (95) 98 NIV Bilevel 60.00 05/21/21 17:00 65 13 127/69 (88) 93 NIV Bilevel 60.00 05/21/21 16:48 NIV Bilevel 60.00 05/21/21 16:00 69 27 122/72 (89) 91 Vapotherm 30.00 75.00 05/21/21 16:00 NIV Bilevel 30.00 50 05/21/21 15:28 35.4 05/21/21 15:00 67 12 107/64 (78) 93 Vapotherm 30.00 75.00 05/21/21 14:00 71 28 114/71 (85) 95 Vapotherm 30.00 75.00 05/21/21 13:00 62 30 133/78 (96) 95 Vapotherm 30.00 75.00 05/21/21 12:55 70 05/21/21 12:44 35.6 05/21/21 12:00 Vapotherm 35.00 80 05/21/21 12:00 64 119/77 (91) 94 Vapotherm 30.00 75.00 05/21/21 11:00 62 23 116/68 (84) 97 Vapotherm 30.00 75.00 05/21/21 10:51 96 Vapotherm 30.00 50 I & O 05/22/21 07:00 Intake Total 1030 ml Output Total 1475 ml Balance -445 ml Height & Weight Height: '" Weight: lbs. oz. kg; 32.80 BMI Method: General Appearance: No Apparent Distress, Chronically ill, Obese HEENT: PERRL/EOMI, Moist Mucous Membranes; No Scleral Icterus (L), No Scleral Icterus (R) Neck: Normal Inspection, Supple Respiratory: No Accessory Muscle Use, Decreased Breath Sounds, Rhonci; No Wheezing; Other (on BiPAP) Cardiovascular: Regular Rate, Rhythm, No Murmur, Irregularly Irregular Capillary Refill: Less Than 3 Seconds Gastrointestinal: non tender, soft, no organomegaly, other Extremity: Normal Capillary Refill, No Calf Tenderness, No Pedal Edema, Other (PICC placed on OSH, RUE, site looks ok) Neurologic/Psychiatric: Alert, Oriented x3 Results Lab Laboratory Tests 05/21/21 04:05 05/22/21 02:30 Assessment/Plan Assessment/Plan (Tele-ICU Physician , Progress Note ) Available chart/ vitals / labs / Images reviewed Video assessment done using teleICU camera, rest of exam as per RN Discussed with RN Events overnight : cardizem gtt , bipap at nigh Afebrile I/O = pos 800 Drips: Pressors: , hemodynamically stable EXAM PER RN Consultants: Hospital course: 05/16 - ARF 05/17 - vapotherm 40L 90% 05/18-vapotherm 35L 80 % 05/22 - suspected 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 at home NPO - MIGHT NEED TPN _ FOLLOW SX RECOM Lines : PICC on right ( presented onadmission - ? date placement ) (Central Line Necessity Reviewed) [place]: 05/16 OG: Nutrition: npo Analgesia: Anxiety/ delirium VTE Prophylaxis: eliquis Stress Ulcer Prophylaxis: PPI Glycemic Control: Plans in collaboration with bedside consultants and IM MDs. Discussed with RN to reach out if any questions or concerns A total of 36 minutes of critical care time was devoted to this patient today, required to treat and/or prevent further deterioration of critical care condition ( as above) . CHELY MURPHY MD May 22, 2021 10:21
--- NOTE | 2021-05-22 10:52 | Progress Note - Hospitalist ---
RADHA SOARES 05/22/21 1051: Subjective HPI/CC On Admission Pt is a 61yoCM with a PMH of gallstone pancreatitis s/p whipple on chronic daily abx with abdominal drain in place who presented to the ER due to hypoxia. He was tested for COVID on 05/05 in preparation for an outpatient procedure and was found to be positive. A couple of days later he became symptomatic. He is unvaccinated against COVID19. He called EMS yesterday and was found to be hypoxic in the 60-70s. He was placed on a NRB and brought to the ER. He was admitted to the ICU here after attempts t transfer were exhausted due to regional diversion. This morning he reports breathing easier but is still on BiPAP. Subjective/Events-last exam Pt reports that he currently feels tired but is otherwise well. Has some discomfort around the whipple incision site but denies any other abdominal pain. Review of Systems General: No Chills; Fatigue; No Other (fever) Pulmonary: No Dyspnea; Cough Cardiovascular: No: Chest Pain, Palpitations Gastrointestinal: No: Nausea, Vomiting, Abdominal Pain Objective Exam Vital Signs Vital Signs Date Time Temp Pulse Resp B/P (MAP) Pulse Ox O2 Delivery O2 Flow Rate FiO2 05/22/21 08:25 35.8 05/22/21 08:00 95 Vapotherm 25.00 60 05/22/21 06:29 68 05/22/21 06:00 16 133/81 (98) Capillary Refill : Less Than 3 Seconds General Appearance: No Apparent Distress, WD/WN Respiratory: Lungs Clear, Normal Breath Sounds Cardiovascular: Regular Rate, Rhythm, No Murmur Gastrointestinal: Non Tender, Soft, Other (Fistula present that is draining ) Extremity: No Pedal Edema, Calf Tenderness (left) Neurologic/Psychiatric: Alert, Normal Mood/Affect Results/Procedures Lab Laboratory Tests 05/22/21 02:30 Patient resulted labs reviewed. Imaging: Reviewed Imaging Report Assessment/Plan Assessment and Plan Assess & Plan/Chief Complaint Acute hypoxic respiratory failure due to COVID-19 Continue vapotherm, albuterol and dexamethasone S/P Whipple Continue meropenem Continue octreotide Waiting for possible transfer to [facility] HTN Hyperlipidemia Continue sotalol,digoxin, diltiazem, eliquis, and statin DVT prophylaxis Covered by TERE Lockwood MD 05/22/21 1943: Subjective HPI/CC On Admission Date Seen by Provider: May 22, 2021 Time Seen by Provider: 09:35 Assessment/Plan Assessment and Plan Assess & Plan/Chief Complaint Admitted with COVID, oxygen requirement improving, weaning Vapotherm as able. Fistula leaking feculent material, [facility] notified, placed on "transfer list", awaiting availability. Diagnosis/Problems Diagnosis/Problems (1) COVID-19 Status: Acute (2) Respiratory failure Status: Acute Qualifiers: Qualified Codes: J96.01 - Acute respiratory failure with hypoxia (3) H/O Whipple procedure Status: Chronic (4) Fistula Status: Acute Supervisory-Addendum Brief Verification & Attestation Participated in pt care: history, MDM, physical Personally performed: exam, history, MDM, supervision of care Care discussed with: Medical Student Procedures: n/a Results interpretation: Verified all documentation A medical student performed and documented this service in my presence. I reviewed and verified all information documented by the medical student and made modifications to such information, when appropriate. I personally performed the physical exam and medical decision making. RADHA SOARES May 22, 2021 10:51 TERE ROMEO MD May 22, 2021 19:43
--- NOTE | 2021-05-22 11:09 | Physical Therapy Progress Note ---
Therapy Progress Note Patient refused therapy this morning. Patient politely encouraged to participate, educated on the benefits of therapy especially for his condition. Patient states his belly hurts and "I don't want to do it". He refuses exercises in bed also. Nurse notified. SHOSHANA STOCKTON PT May 22, 2021 11:09
--- NOTE | 2021-05-22 12:45 | Cardiology Progress Note ---
Subjective Date Seen by Provider: May 22, 2021 Time Seen by Provider: 12:44 Subjective/Events-last exam Patient was seen at bedside laying down, sleeping, still on Vapotherm 50% Review of Systems Pulmonary: Dyspnea Objective-Cardiology Exam Last Set of Vital Signs Vital Signs 05/22/21 05/22/21 05/22/21 08:00 11:40 12:00 Temp 36.0 Pulse 74 Resp 32 B/P (MAP) 121/78 (92) Pulse Ox 94 O2 Delivery Vapotherm O2 Flow Rate 25.00 60.00 FiO2 60 I&O Intake and Output 05/22/21 00:00 Intake Total 1105 ml Output Total 1450 ml Balance -345 ml Intake Oral 975 ml IV Total 130 ml Output Urine Total 1450 ml General: Alert HEENT: Atraumatic Neck: Supple Heart: Other (Atrial fibrillation) Extremities: No Clubbing, No Cyanosis Skin: No Rashes Psych/Mental Status: Mental Status NL Results Lab Laboratory Tests 05/22/21 02:30 A/P-Cardiology Admission Diagnosis Acute respiratory failure COVID-19 pneumonia Atrial fibrillation Hypotension Assessment/Plan Status post acute respiratory failure secondary to COVID-19 pneumonia, still on Vapotherm 50%, slow improvement. X-ray findings reviewed Paroxysmal atrial fibrillation, maintained on sotalol 120 twice daily, maintained on oral Cardizem and digoxin. Heart rate is better controlled. Continue to monitor History of Whipple procedure. Has drain in place. Hypertension, better controlled at this time. Continue to monitor Hyperlipidemia, monitor lipids. Diabetes mellitus, hyperglycemia, probably secondary to steroid, managed by primary care team TIAGO GILL MD May 22, 2021 12:45
--- NOTE | 2021-05-22 14:38 | Progress Note - Surgery ---
Subjective Time Seen by a Provider: 13:29 Subjective/Events-last exam Pt seen and examined, is actually breathing better and denies abdominal pain. Review of Systems General: Fatigue Pulmonary: Dyspnea, Cough Cardiovascular: No: Chest Pain, Palpitations Gastrointestinal: No: Nausea, Vomiting, Abdominal Pain Objective Exam Vital Signs Date Time Temp Pulse Resp B/P (MAP) Pulse Ox O2 Delivery O2 Flow Rate FiO2 05/22/21 14:23 95 Vapotherm 25.00 45 05/22/21 12:57 65 05/22/21 12:00 74 32 121/78 (92) 94 Vapotherm 25.00 60.00 05/22/21 11:40 36.0 05/22/21 11:00 70 6 130/90 (103) 93 Vapotherm 25.00 60.00 05/22/21 10:00 71 10 113/64 (80) 97 Vapotherm 25.00 60.00 05/22/21 09:00 73 7 104/65 (78) 97 Vapotherm 25.00 60.00 05/22/21 08:25 35.8 05/22/21 08:00 71 8 124/79 (94) 89 Vapotherm 25.00 60.00 05/22/21 08:00 95 Vapotherm 25.00 60 05/22/21 07:22 91 Vapotherm 25.00 60 05/22/21 07:00 73 7 126/70 (88) 91 Vapotherm 25.00 60.00 05/22/21 06:29 68 05/22/21 06:00 73 16 133/81 (98) 94 Vapotherm 25.00 60.00 05/22/21 05:40 Vapotherm 25.00 60.00 05/22/21 05:20 Vapotherm 20.00 40.00 05/22/21 05:00 74 10 121/91 (101) 98 NIV Bilevel 40.00 05/22/21 04:00 95 NIV Bilevel 40 05/22/21 04:00 36.8 NIV Bilevel 40.00 05/22/21 04:00 70 142/87 (108) 92 NIV Bilevel 40.00 05/22/21 03:05 71 22 94 50.00 05/22/21 03:00 68 23 138/91 (108) 94 NIV Bilevel 40.00 05/22/21 02:00 73 18 141/81 (108) 95 NIV Bilevel 40.00 05/22/21 01:00 70 136/81 (107) 95 NIV Bilevel 40.00 05/22/21 01:00 70 05/22/21 00:00 68 12 134/81 (103) 97 NIV Bilevel 40.00 05/21/21 23:00 98 NIV Bilevel 40 05/21/21 23:00 73 22 133/77 (90) 96 NIV Bilevel 40.00 05/21/21 22:45 36.5 NIV Bilevel 40.00 05/21/21 22:29 70 25 98 50.00 05/21/21 22:00 71 22 128/80 (98) 98 NIV Bilevel 50.00 05/21/21 21:20 NIV Bilevel 50.00 05/21/21 21:00 67 33 108/65 (76) 99 NIV Bilevel 60.00 05/21/21 20:00 76 26 108/78 (86) 100 NIV Bilevel 60.00 05/21/21 19:45 99 NIV Bilevel 60 05/21/21 19:43 36.2 05/21/21 19:00 72 05/21/21 19:00 72 131/86 (101) 99 NIV Bilevel 60.00 05/21/21 19:00 NIV Bilevel 60.00 05/21/21 18:43 71 31 98 60.00 05/21/21 18:00 72 27 130/78 (95) 98 NIV Bilevel 60.00 05/21/21 17:00 65 13 127/69 (88) 93 NIV Bilevel 60.00 05/21/21 16:48 NIV Bilevel 60.00 05/21/21 16:00 69 27 122/72 (89) 91 Vapotherm 30.00 75.00 05/21/21 16:00 NIV Bilevel 30.00 50 05/21/21 15:28 35.4 05/21/21 15:00 67 12 107/64 (78) 93 Vapotherm 30.00 75.00 I & O 05/22/21 07:00 Intake Total 1030 ml Output Total 1475 ml Balance -445 ml Capillary Refill : Less Than 3 Seconds General Appearance: No Apparent Distress, WD/WN HEENT: PERRL/EOMI, Moist Mucous Membranes; No Scleral Icterus (L), No Scleral Icterus (R) Respiratory: No Accessory Muscle Use, No Respiratory Distress, Decreased Breath Sounds, Rhonci Cardiovascular: Regular Rate, Rhythm, No Murmur Gastrointestinal: non tender, soft, no organomegaly, other (fistula with definite fecal contents) Neurologic/Psychiatric: Alert, Normal Mood/Affect Results Lab Laboratory Tests 05/21/21 15:06: Glucometer 374H 05/21/21 20:52: Glucometer 246H 05/22/21 02:30: White Blood Count 18.4H, Red Blood Count 3.56L, Hemoglobin 10.0L, Hematocrit 32L , Mean Corpuscular Volume 90, Mean Corpuscular Hemoglobin 28, Mean Corpuscular Hemoglobin Concent 31L, Red Cell Distribution Width 15.0H, Platelet Count 490H, Mean Platelet Volume 11.1, Immature Granulocyte % (Auto) 2, Neutrophils (%) (Auto) 88H, Lymphocytes (%) (Auto) 2L, Monocytes (%) (Auto) 8, Eosinophils (%) (Auto) 0, Basophils (%) (Auto) 0, Neutrophils # (Auto) 16.3H, Lymphocytes # (Auto) 0.4L, Monocytes # (Auto) 1.4H, Eosinophils # (Auto) 0.0, Basophils # (Auto) 0.0, Immature Granulocyte # (Auto) 0.3H, Sodium Level 135, Potassium Level 4.8, Chloride Level 102, Carbon Dioxide Level 27, Anion Gap 6, Blood Urea Nitrogen 29H, Creatinine 0.75, Estimat Glomerular Filtration Rate 106, BUN/Creatinine Ratio 39, Glucose Level 118H, Calcium Level 8.8, Phosphorus Level 2.4, Magnesium Level 2.4 05/22/21 10:24: Glucometer 255H Microbiology 05/21/21 Gram Stain - Final, Resulted 05/21/21 Wound Culture - Preliminary, Resulted Gram Positive Cocci In Chains YEAST 05/21/21 Blood Culture - Preliminary, Resulted No growth 05/17/21 MRSA Screen - Final, Complete MRSA not isolated Assessment/Plan Assessment/Plan Assessment/Plan 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 Attempting to get pt back to the Tertiary facility where he had his Whipple surgery; nothing else to do at this time. He is NPO and may need TPN. HALINA COLE DO May 22, 2021 14:38
[2021-05-22] MEDS: ANIDULAFUNGIN 100 MG/NS 100 ML IV SCH ×2 (20:32)
[2021-05-22 22:31] VITALS: BP 122/78
[2021-05-23 03:04] LABS: BASOPHILS % (AUTO) 0 % (0-10); EOSINOPHILS % (AUTO) 0 % (0-10); HEMATOCRIT 32 % (40-54); HEMOGLOBIN 10.3 g/dL (13.3-17.7); LYMPHOCYTES # (AUTO) 0.4 10^3/uL (1.0-4.0); LYMPHOCYTES % (AUTO) 3 % (12-44); MEAN CORPUSCULAR HEMOGLOBIN 28 pg (25-34); MEAN CORPUSCULAR HGB CONC 32 g/dL (32-36); MEAN CORPUSCULAR VOLUME 89 fL (80-99); MEAN PLATELET VOLUME 11.6 fL (9.0-12.2); MONOCYTES # (AUTO) 1.1 10^3/uL (0.0-1.0); MONOCYTES % (AUTO) 7 % (0-12); NEUTROPHILS # (AUTO) 13.5 10^3/uL (1.8-7.8); NEUTROPHILS % (AUTO) 89 % (42-75); PLATELET COUNT 501 10^3/uL (130-400); WHITE BLOOD COUNT 15.2 10^3/uL (4.3-11.0)
[2021-05-23 03:18] LABS: POTASSIUM 4.6 MMOL/L (3.6-5.0)
[2021-05-23 03:19] LABS: CALCIUM 8.7 MG/DL (8.5-10.1)
[2021-05-23 03:23] LABS: PHOSPHORUS 3.2 MG/DL (2.3-4.7)
[2021-05-23 03:24] LABS: CREATININE SERUM 0.7 MG/DL (0.60-1.30)
[2021-05-23 03:26] LABS: MAGNESIUM 2.2 MG/DL (1.6-2.4)
[2021-05-23 03:31] VITALS: BP 135/83
[2021-05-23] MEDS: RT-ALBUTEROL HFA 8.5 GM INHALER IH SCH ×6 (03:31→21:34)
[2021-05-23] MEDS: POTASSIUM CL 10MEQ/50ML IVPB 50 ML IV SCH (05:07)
[2021-05-23] MEDS: inSUlin ASPART (NovoLOG) 1 UNIT/0.01 ML (CHARGE PER UNIT) SC SCH ×4 (05:08→21:29)
[2021-05-23] MEDS: KCL 20 MEQ TAB (K-DUR) PO SCH (05:08)
[2021-05-23] MEDS: MAGNESIUM 1 GM/100 ML IVPB 100 ML IV SCH (05:08)
[2021-05-23] MEDS: MEROPENEM 1,000 MG/SWFI 20 ML IV PUSH IV SCH ×6 (05:39→20:30)
[2021-05-23] MEDS: CYANOCOBALAMIN 1,000 MCG (VITAMIN B-12) TABLET PO SCH (05:39)
[2021-05-23] MEDS: OCTREOTIDE (FOR SQ USE) 100 MCG/ML VIAL (SandoSTATIN) SC SCH ×3 (05:39→20:31)
[2021-05-23] MEDS: CATHETER FLUSH 10 ML SYR IV SCH ×3 (05:40→20:31)
[2021-05-23 06:23] VITALS: BP 135/86
--- NOTE | 2021-05-23 09:51 | Progress Note - Surgery ---
Subjective Time Seen by a Provider: 08:37 Subjective/Events-last exam Pt seen and examined, has BiPap on. Denies abdominal pain is still having feculent drainage from incision. Review of Systems General: Fatigue Pulmonary: Dyspnea; No Cough Cardiovascular: No: Chest Pain, Palpitations Gastrointestinal: No: Nausea, Vomiting, Abdominal Pain Objective Exam Vital Signs Date Time Temp Pulse Resp B/P (MAP) Pulse Ox O2 Delivery O2 Flow Rate FiO2 05/23/21 06:29 67 05/23/21 06:23 69 18 93 35.00 05/23/21 06:00 62 21 135/86 (102) 93 NIV Bilevel 35.00 05/23/21 05:00 65 15 133/79 (94) 96 NIV Bilevel 35.00 05/23/21 04:15 35.8 05/23/21 04:00 66 29 134/83 (102) 92 NIV Bilevel 35.00 05/23/21 04:00 96 NIV Bilevel 25.00 35 05/23/21 03:31 64 22 95 35.00 05/23/21 03:00 68 32 135/83 (101) 97 NIV Bilevel 35.00 05/23/21 02:00 63 21 134/83 (99) 94 NIV Bilevel 35.00 05/23/21 01:00 67 38 128/75 (96) 97 NIV Bilevel 35.00 05/23/21 01:00 67 05/23/21 00:00 75 27 128/76 (93) 96 NIV Bilevel 35.00 05/23/21 00:00 94 Vapotherm 25.00 45 05/22/21 23:45 35.8 05/22/21 23:00 70 23 134/81 (98) 93 Vapotherm 25.00 60.00 05/22/21 22:31 71 22 95 40.00 05/22/21 22:00 63 11 122/78 (88) 91 Vapotherm 25.00 60.00 05/22/21 21:00 72 34 122/78 (91) 97 Vapotherm 25.00 60.00 05/22/21 20:21 35.6 05/22/21 20:00 76 116/86 (96) 90 Vapotherm 25.00 60.00 05/22/21 20:00 93 Vapotherm 25.00 45 05/22/21 19:00 74 8/30/21 19:00 74 25 140/92 (108) 93 Vapotherm 25.00 60.00 05/22/21 18:25 93 Vapotherm 25.00 45 05/22/21 18:00 71 30 128/83 (98) 95 Vapotherm 25.00 60.00 05/22/21 17:00 73 21 127/81 (96) 95 Vapotherm 25.00 60.00 05/22/21 16:07 35.8 05/22/21 16:00 95 Vapotherm 25.00 45 05/22/21 16:00 69 34 123/76 (92) 95 Vapotherm 25.00 60.00 05/22/21 15:00 60 26 118/79 (92) 94 Vapotherm 25.00 60.00 05/22/21 14:23 95 Vapotherm 25.00 45 05/22/21 14:15 Vapotherm 25.00 45.00 05/22/21 14:00 71 8 119/68 (85) 97 Vapotherm 25.00 60.00 05/22/21 13:00 72 13 143/72 (95) 99 Vapotherm 25.00 60.00 05/22/21 12:57 65 05/22/21 12:00 95 Vapotherm 25.00 60 05/22/21 12:00 74 32 121/78 (92) 94 Vapotherm 25.00 60.00 05/22/21 11:40 36.0 05/22/21 11:00 70 6 130/90 (103) 93 Vapotherm 25.00 60.00 05/22/21 10:00 71 10 113/64 (80) 97 Vapotherm 25.00 60.00 I & O 05/23/21 07:00 Intake Total 300 ml Output Total 1650 ml Balance -1350 ml Capillary Refill : Less Than 3 Seconds General Appearance: No Apparent Distress, WD/WN HEENT: PERRL/EOMI, Moist Mucous Membranes; No Scleral Icterus (L), No Scleral Icterus (R) Respiratory: No Accessory Muscle Use, No Respiratory Distress, Decreased Breath Sounds, Rhonci Cardiovascular: Regular Rate, Rhythm, No Murmur Gastrointestinal: non tender, soft, no organomegaly, other (fistula with definite fecal contents) Neurologic/Psychiatric: Alert, Normal Mood/Affect Results Lab Laboratory Tests 05/22/21 10:24: Glucometer 255H 05/22/21 15:27: Glucometer 143H 05/22/21 20:48: Glucometer 110 05/23/21 02:40: White Blood Count 15.2H, Red Blood Count 3.65L, Hemoglobin 10.3L, Hematocrit 32L , Mean Corpuscular Volume 89, Mean Corpuscular Hemoglobin 28, Mean Corpuscular Hemoglobin Concent 32, Red Cell Distribution Width 15.4H, Platelet Count 501H, Mean Platelet Volume 11.6, Immature Granulocyte % (Auto) 2, Neutrophils (%) (Auto) 89H, Lymphocytes (%) (Auto) 3L, Monocytes (%) (Auto) 7, Eosinophils (%) (Auto) 0, Basophils (%) (Auto) 0, Neutrophils # (Auto) 13.5H, Lymphocytes # (Auto) 0.4L, Monocytes # (Auto) 1.1H, Eosinophils # (Auto) 0.0, Basophils # (Auto) 0.0, Immature Granulocyte # (Auto) 0.2H, Sodium Level 135, Potassium Level 4.6, Chloride Level 100, Carbon Dioxide Level 28, Anion Gap 7, Blood Urea Nitrogen 29H, Creatinine 0.70, Estimat Glomerular Filtration Rate 114, BUN/Creatinine Ratio 41, Glucose Level 108H, Calcium Level 8.7, Phosphorus Level 3.2, Magnesium Level 2.2 Microbiology 05/21/21 Gram Stain - Final, Resulted 05/21/21 Wound Culture - Preliminary, Resulted Gram Positive Cocci In Chains YEAST 05/21/21 Blood Culture - Preliminary, Resulted No growth 05/17/21 MRSA Screen - Final, Complete MRSA not isolated Assessment/Plan Assessment/Plan Assessment/Plan 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 Attempting to get pt back to the Tertiary facility where he had his Whipple surgery; will have nursing production supervisor call daily to remind [facility] he has been accepted and just waiting on bed. He is NPO and may need TPN. HALINA COLE DO May 23, 2021 09:51
--- NOTE | 2021-05-23 09:51 | Tele-ICU Progress Note ---
Subjective Date Seen by a Provider: May 23, 2021 Time Seen by a Provider: 09:50 Sepsis Event Evaluation Height, Weight, BMI Height: '" Weight: lbs. oz. kg; 32.80 BMI Method: Exam Exam Patient acknowledged, consented, and participated in this virtual visit which was conducted using real time audio/video Vital Signs Date Time Temp Pulse Resp B/P (MAP) Pulse Ox O2 Delivery O2 Flow Rate FiO2 05/23/21 06:29 67 05/23/21 06:23 69 18 93 35.00 05/23/21 06:00 62 21 135/86 (102) 93 NIV Bilevel 35.00 05/23/21 05:00 65 15 133/79 (94) 96 NIV Bilevel 35.00 05/23/21 04:15 35.8 05/23/21 04:00 66 29 134/83 (102) 92 NIV Bilevel 35.00 05/23/21 04:00 96 NIV Bilevel 25.00 35 05/23/21 03:31 64 22 95 35.00 05/23/21 03:00 68 32 135/83 (101) 97 NIV Bilevel 35.00 05/23/21 02:00 63 21 134/83 (99) 94 NIV Bilevel 35.00 05/23/21 01:00 67 38 128/75 (96) 97 NIV Bilevel 35.00 05/23/21 01:00 67 05/23/21 00:00 75 27 128/76 (93) 96 NIV Bilevel 35.00 05/23/21 00:00 94 Vapotherm 25.00 45 05/22/21 23:45 35.8 05/22/21 23:00 70 23 134/81 (98) 93 Vapotherm 25.00 60.00 05/22/21 22:31 71 22 95 40.00 05/22/21 22:00 63 11 122/78 (88) 91 Vapotherm 25.00 60.00 05/22/21 21:00 72 34 122/78 (91) 97 Vapotherm 25.00 60.00 05/22/21 20:21 35.6 05/22/21 20:00 76 116/86 (96) 90 Vapotherm 25.00 60.00 05/22/21 20:00 93 Vapotherm 25.00 45 05/22/21 19:00 74 05/22/21 19:00 74 25 140/92 (108) 93 Vapotherm 25.00 60.00 05/22/21 18:25 93 Vapotherm 25.00 45 05/22/21 18:00 71 30 128/83 (98) 95 Vapotherm 25.00 60.00 05/22/21 17:00 73 21 127/81 (96) 95 Vapotherm 25.00 60.00 05/22/21 16:07 35.8 05/22/21 16:00 95 Vapotherm 25.00 45 05/22/21 16:00 69 34 123/76 (92) 95 Vapotherm 25.00 60.00 05/22/21 15:00 60 26 118/79 (92) 94 Vapotherm 25.00 60.00 05/22/21 14:23 95 Vapotherm 25.00 45 05/22/21 14:15 Vapotherm 25.00 45.00 05/22/21 14:00 71 8 119/68 (85) 97 Vapotherm 25.00 60.00 05/22/21 13:00 72 13 143/72 (95) 99 Vapotherm 25.00 60.00 05/22/21 12:57 65 05/22/21 12:00 95 Vapotherm 25.00 60 05/22/21 12:00 74 32 121/78 (92) 94 Vapotherm 25.00 60.00 05/22/21 11:40 36.0 05/22/21 11:00 70 6 130/90 (103) 93 Vapotherm 25.00 60.00 05/22/21 10:00 71 10 113/64 (80) 97 Vapotherm 25.00 60.00 I & O 05/23/21 07:00 Intake Total 300 ml Output Total 1650 ml Balance -1350 ml Height & Weight Height: '" Weight: lbs. oz. kg; 32.80 BMI Method: General Appearance: No Apparent Distress, WD/WN HEENT: PERRL/EOMI, Moist Mucous Membranes; No Scleral Icterus (L), No Scleral Icterus (R) Respiratory: No Accessory Muscle Use, No Respiratory Distress, Decreased Breath Sounds, Rhonci Cardiovascular: Regular Rate, Rhythm, No Murmur Capillary Refill: Less Than 3 Seconds Gastrointestinal: non tender, soft, no organomegaly, other (fistula with definite fecal contents) Neurologic/Psychiatric: Alert, Normal Mood/Affect Results Lab Laboratory Tests 05/22/21 02:30 05/23/21 02:40 Assessment/Plan Assessment/Plan (Tele-ICU Physician , Progress Note ) Available chart/ vitals / labs / Images reviewed Video assessment done using teleICU camera, rest of exam as per RN Discussed with RN Events overnight : cardizem gtt , bipap at nigh Afebrile I/O = pos 800 Drips: Pressors: , hemodynamically stable EXAM PER RN Consultants: Hospital course: 05/16 - ARF 05/17 - vapotherm 40L 90% 05/18-vapotherm 35L 80 % 05/22 - suspected 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 at home NPO - MIGHT NEED TPN _ FOLLOW SX RECOM Lines : PICC on right ( presented onadmission - ? date placement ) (Central Line Necessity Reviewed) [place]: 05/16 OG: Nutrition: npo Analgesia: Anxiety/ delirium VTE Prophylaxis: eliquis Stress Ulcer Prophylaxis: PPI Glycemic Control: Plans in collaboration with bedside consultants and IM MDs. Discussed with RN to reach out if any questions or concerns A total of 36 minutes of critical care time was devoted to this patient today, required to treat and/or prevent further deterioration of critical care condition ( as above) . CHELY MURPHY MD May 23, 2021 09:51
[2021-05-23] MEDS: SOTALOL 80 MG (BETAPACE) TAB PO SCH ×2 (10:15→20:30)
[2021-05-23] MEDS: PYRIDOXINE (VITAMIN B-6) 50 MG TABLET PO SCH (10:16)
[2021-05-23] MEDS: dexAMETHasone 6 MG TAB (DECADRON) PO SCH (10:16)
[2021-05-23] MEDS: APIXABAN 5 MG (ELIQUIS) TABLET PO SCH ×2 (10:16→20:30)
[2021-05-23] MEDS: ASPIRIN E.C. 81 MG (ECOTRIN) TAB PO SCH (10:16)
[2021-05-23] MEDS: DIGOXIN 0.25 MG (LANOXIN) TAB PO SCH (10:16)
--- NOTE | 2021-05-23 11:07 | Progress Note - Hospitalist ---
RADHA SOARES 05/23/21 1107: Subjective HPI/CC On Admission Time Seen by Provider: 08:15 Pt is a 61yoCM with a PMH of gallstone pancreatitis s/p whipple on chronic daily abx with abdominal drain in place who presented to the ER due to hypoxia. He was tested for COVID on 05/05 in preparation for an outpatient procedure and was found to be positive. A couple of days later he became symptomatic. He is unvaccinated against COVID19. He called EMS yesterday and was found to be hypoxic in the 60-70s. He was placed on a NRB and brought to the ER. He was admitted to the ICU here after attempts t transfer were exhausted due to regional diversion. This morning he reports breathing easier but is still on BiPAP. Subjective/Events-last exam Pt reports that he has developed a fever and chills. Denies having any other problems. Review of Systems General: Chills, Other (fever) Pulmonary: No Dyspnea, No Cough Cardiovascular: No: Chest Pain Gastrointestinal: No: Nausea, Vomiting, Abdominal Pain Neurological: No: Weakness, Numbness Objective Exam Vital Signs Vital Signs Date Time Temp Pulse Resp B/P (MAP) Pulse Ox O2 Delivery O2 Flow Rate FiO2 05/23/21 10:39 95 Vapotherm 25.00 45 05/23/21 10:15 71 05/23/21 08:00 35.8 05/23/21 06:23 18 05/23/21 06:00 135/86 (102) Capillary Refill : Less Than 3 Seconds General Appearance: No Apparent Distress, WD/WN Respiratory: Lungs Clear, Normal Breath Sounds Cardiovascular: Regular Rate, Rhythm, Normal Peripheral Pulses Gastrointestinal: Non Tender, Soft, Other (Fistula present on abdomen w/ discharge ) Extremity: Normal Inspection, Non Tender, No Pedal Edema Neurologic/Psychiatric: Alert, Normal Mood/Affect Skin: Normal Color, Warm/Dry Results/Procedures Lab Laboratory Tests 05/23/21 02:40 Patient resulted labs reviewed. Imaging: Reviewed Imaging Report Assessment/Plan Assessment and Plan Assess & Plan/Chief Complaint Acute hypoxic respiratory failure due to COVID-19 Continue vapotherm, albuterol and dexamethasone S/P Whipple Continue meropenem Continue octreotide Waiting for possible transfer to [facility]. Pt is on a waiting list Afib HTN Hyperlipidemia Continue sotalol,digoxin, diltiazem, eliquis, and statin DVT prophylaxis Covered by eluquis use TERE ROMEO MD 05/23/21 1729: Subjective HPI/CC On Admission Date Seen by Provider: May 23, 2021 Time Seen by Provider: 09:05 Assessment/Plan Assessment and Plan Assess & Plan/Chief Complaint Continue treatment for COVID, oxygen requirement improving. Continue antibiotics. Fistula draining feculant material, awaiting transfer to [facility], updated on status and ability to transfer to medical/surgical floor. Diagnosis/Problems Diagnosis/Problems (1) COVID-19 Status: Acute (2) Respiratory failure Status: Acute Qualifiers: Qualified Codes: J96.01 - Acute respiratory failure with hypoxia (3) H/O Whipple procedure Status: Chronic (4) Fistula Status: Acute Supervisory-Addendum Brief Verification & Attestation Participated in pt care: history, MDM, physical Personally performed: exam, history, MDM, supervision of care Care discussed with: Medical Student Procedures: n/a Results interpretation: Verified all documentation A medical student performed and documented this service in my presence. I reviewed and verified all information documented by the medical student and made modifications to such information, when appropriate. I personally performed the physical exam and medical decision making. RADHA SOARES May 23, 2021 11:07 TERE ROMEO MD May 23, 2021 17:29
--- NOTE | 2021-05-23 12:15 | Cardiology Progress Note ---
Subjective Date Seen by Provider: May 23, 2021 Time Seen by Provider: 08:00 Subjective/Events-last exam Patient was seen at bedside, laying down comfortably, sleeping. Review of Systems Pulmonary: Dyspnea Objective-Cardiology Exam Last Set of Vital Signs Vital Signs 05/23/21 05/23/21 05/23/21 08:00 10:39 11:00 Temp 35.8 Pulse 75 Resp 29 B/P (MAP) 124/75 (91) Pulse Ox 92 O2 Delivery NIV Bilevel O2 Flow Rate 35.00 FiO2 45 I&O Intake and Output 05/23/21 00:00 Intake Total 275 ml Output Total 1375 ml Balance -1100 ml Intake Oral 125 ml IV Total 150 ml Output Urine Total 1375 ml Drainage Total 0 ml # Bowel Movements 1 General: Alert HEENT: Atraumatic Neck: Supple Heart: Other (Atrial fibrillation) Extremities: No Clubbing, No Cyanosis Skin: No Rashes Psych/Mental Status: Mental Status NL Results Lab Laboratory Tests 05/23/21 02:40 A/P-Cardiology Admission Diagnosis Acute respiratory failure COVID-19 pneumonia Atrial fibrillation Hypotension Assessment/Plan Status post acute respiratory failure secondary to COVID-19 pneumonia, still on Vapotherm 50%, slow improvement. X-ray findings reviewed Paroxysmal atrial fibrillation, maintained on sotalol 120 twice daily, maintained on oral Cardizem and digoxin. Heart rate is better controlled. Continue to monitor History of Whipple procedure, having significant discharge with possible fistula, there is questionable fecal material, discussed with Dr. Borja, patient will require transfer to a tertiary care center. Hypertension, better controlled at this time. Continue to monitor Hyperlipidemia, monitor lipids. Diabetes mellitus, hyperglycemia, probably secondary to steroid, managed by primary care team TIAGO GILL MD May 23, 2021 12:15
--- NOTE | 2021-05-23 14:23 | Physical Therapy Daily Note ---
PT Daily Note-Current Subjective Patient sitting on side of bed pre tx, agrees to PT, would like to try to get into a recliner, has no complaints of pain but says he feels weak. Appearance Patient in recliner post tx with nurse call, phone, tray, all needs met. Mental Status Patient Orientation: Person, Place, Situation Attachments: Oxygen (vapotherm), Drains, [place] Catheter Transfers SCALE: Activities may be completed with or without assistive devices. 9-Awpyrclgeg-zfetwdq completes the activity by him/herself with no assistance from a helper. 5-Set-up or Clean-up Assistance-helper sets up or cleans up; patient completes activity. [place] assists only prior to or following the activity. 4-Supervision or Touching Assistance-helper provides verbal cues and/or touching/steadying and/or contact guard assistance as patient completes activity. Assistance may be provided throughout the activity or intermittently. 3-Partial/Moderate Assistance-helper does LESS THAN HALF the effort. [place] lifts, holds or supports trunk or limbs, but provides less than half the effort. 2-Substantial/Maximal Assistance-helper does MORE THAN HALF the effort. [place] lifts or holds trunk or limbs and provides more than half the effort. 9-Rgqxtpqpq-gpjmwk does ALL the effort. Patient does none of the effort to complete the activity. Or, the assistance of 2 or more helpers is required for the patient to complete the activity. If activity was not attempted, code reason: 7-Patient Refused. 9-Not Applicable-not attempted and the patient did not perform the activity before the current illness, exacerbation or injury. 10-Not Attempted due to Environmental Limitations-(lack of equipment, weather restraints, etc.). 88-Not Attempted due to Medical Conditions or Safety Concerns. Sit to Stand (QC): 4 Chair/Sgg-gi-Izpuu Xfer(QC): 4 CGA, patient stands and initially says he isn't going to be able to make it to the recliner but tries again and takes a few steps to the recliner while holding onto the bed rail and then arm rest of the chair. Gait Training Distance: 3' Gait Assistive Device: Handheld Assist slumped posture, unsteady Exercises Seated Therapy Exercises: Ankle pumps, Long arc quads Seated Reps: 20 Treatments transfers, ambulation, LE strengthening Assessment Current Status: Fair Progress improved participation from yesterday PT Short Term Goals Short Term Goals Time Frame: May 27, 2021 Roll Left & Right: 5 Sit to lyin Lying to sitting on side of be: 5 Sit to stand: 5 Chair/uag-mc-xcnto transfer: 5 Toilet transfer: 5 Car transfer: 5 Walk 10 feet: 5 Walk 50 feet with two turns: 5 Walk 150 feet: 5 Walking 10ft on uneven surface: 5 1 step (curb): 5 4 steps: 5 12 steps: 5 PT Longterm Goals Mail Handler Equipment Operator Goals PT Longterm Goals Time Frame: Jun 03, 2021 Roll Left & Right (QC): 6 Sit to Lying (QC): 6 Lying-Sitting on Side/Bed(QC): 6 Sit to Stand (QC): 6 Chair/Ssk-dl-Ajhfj Xfer(QC): 6 Toilet Transfer (QC): 6 Car Transfer (QC): 6 Does the Patient Walk: No and Walking Goal IS indicated Walk 10 feet (QC): 6 Walk 50ft with 2 Turns (QC): 6 Walk 150 ft (QC): 6 Walking 10ft on Uneven Surface: 6 1 Step (curb) (QC): 6 4 Steps (QC): 6 12 Steps (QC): 6 Picking up an Object (QC): 6 PT Plan Problem List Problem List: Activity Tolerance, Functional Strength, Safety, Balance, Gait, Transfer, Bed Mobility, ROM Treatment/Plan Treatment Plan: Continue Plan of Care Treatment Plan: Bed Mobility, Functional Activity Demi, Functional Strength, Gait, Safety, Therapeutic Exercise, Transfers Treatment Duration: Jun 03, 2021 Frequency: 11 times per week Safety Risks/Education Patient Education: Transfer Techniques, Correct Positioning, Safety Issues Teaching Recipient: Patient Teaching Methods: Demonstration, Discussion Response to Teaching: Reinforcement Needed Time/GCodes Time In: 1404 Time Out: 1416 Total Billed Treatment Time: 12 Total Billed Treatment 1 visit FA SHOSHANA TRINIDAD PT May 23, 2021 14:23
[2021-05-23] MEDS ORDERED: SODIUM ACETATE IV SCH ×10 (17:00)
[2021-05-23] MEDS ORDERED: [UNRECOGNIZED DRUG - OTHER] IV SCH ×10 (17:00)
[2021-05-23] MEDS ORDERED: POTASSIUM CHLORIDE IV SCH ×10 (17:00)
[2021-05-23] MEDS ORDERED: SODIUM PHOSPHATE IV SCH ×10 (17:00)
[2021-05-23] MEDS: ANIDULAFUNGIN 100 MG/NS 100 ML IV SCH ×2 (20:29)
[2021-05-24] MEDS: RT-ALBUTEROL HFA 8.5 GM INHALER IH SCH ×5 (02:25→18:32)
[2021-05-24 04:46] LABS: BASOPHILS % (AUTO) 0 % (0-10); EOSINOPHILS % (AUTO) 0 % (0-10); HEMATOCRIT 32 % (40-54); HEMOGLOBIN 10.3 g/dL (13.3-17.7); LYMPHOCYTES # (AUTO) 0.4 10^3/uL (1.0-4.0); LYMPHOCYTES % (AUTO) 3 % (12-44); MEAN CORPUSCULAR HEMOGLOBIN 28 pg (25-34); MEAN CORPUSCULAR HGB CONC 32 g/dL (32-36); MEAN CORPUSCULAR VOLUME 89 fL (80-99); MEAN PLATELET VOLUME 11.5 fL (9.0-12.2); MONOCYTES % (AUTO) 8 % (0-12); NEUTROPHILS # (AUTO) 11.6 10^3/uL (1.8-7.8); NEUTROPHILS % (AUTO) 88 % (42-75); PLATELET COUNT 492 10^3/uL (130-400); WHITE BLOOD COUNT 13.2 10^3/uL (4.3-11.0)
[2021-05-24] MEDS: CATHETER FLUSH 10 ML SYR IV SCH ×3 (04:52→21:05)
[2021-05-24] MEDS: OCTREOTIDE (FOR SQ USE) 100 MCG/ML VIAL (SandoSTATIN) SC SCH ×3 (04:52→21:11)
[2021-05-24] MEDS: CYANOCOBALAMIN 1,000 MCG (VITAMIN B-12) TABLET PO SCH (04:53)
[2021-05-24] MEDS: MEROPENEM 1,000 MG/SWFI 20 ML IV PUSH IV SCH ×6 (04:53→21:11)
[2021-05-24 05:14] LABS: CALCIUM 8.7 MG/DL (8.5-10.1); CREATININE SERUM 0.69 MG/DL (0.60-1.30); MAGNESIUM 2.5 MG/DL (1.6-2.4); PHOSPHORUS 3.2 MG/DL (2.3-4.7)
[2021-05-24] MEDS: KCL 20 MEQ TAB (K-DUR) PO SCH (05:48)
[2021-05-24] MEDS: MAGNESIUM 1 GM/100 ML IVPB 100 ML IV SCH (05:48)
[2021-05-24] MEDS: POTASSIUM CL 10MEQ/50ML IVPB 50 ML IV SCH (05:48)
[2021-05-24] MEDS: inSUlin ASPART (NovoLOG) 1 UNIT/0.01 ML (CHARGE PER UNIT) SC SCH ×4 (05:48→20:28)
[2021-05-24] MEDS: PYRIDOXINE (VITAMIN B-6) 50 MG TABLET PO SCH (08:47)
[2021-05-24] MEDS: SOTALOL 80 MG (BETAPACE) TAB PO SCH ×2 (08:47→19:54)
[2021-05-24] MEDS: ASPIRIN E.C. 81 MG (ECOTRIN) TAB PO SCH (08:47)
[2021-05-24] MEDS: APIXABAN 5 MG (ELIQUIS) TABLET PO SCH ×2 (08:47→19:54)
[2021-05-24] MEDS: DIGOXIN 0.25 MG (LANOXIN) TAB PO SCH (08:47)
[2021-05-24] MEDS: dexAMETHasone 6 MG TAB (DECADRON) PO SCH (08:47)
--- NOTE | 2021-05-24 10:32 | Cardiology Progress Note ---
Subjective Date Seen by Provider: May 24, 2021 Time Seen by Provider: 10:31 Subjective/Events-last exam Patient is laying down in bed, no new complaint, feeling slightly better, requiring less oxygen today Review of Systems General: No Chills, No Night Sweats; Fatigue, Malaise; No Appetite, No Other HEENT: No Head Aches, No Visual Changes, No Eye Pain, No Ear Pain, No Dysphasia, No Sinus Congestion, No Post Nasal Drip, No Sore Throat, No Other Pulmonary: Dyspnea; No Cough, No Pleuritic Chest Pain, No Other Cardiovascular: No: Chest Pain, Palpitations, Orthopnea, Paroxysmal Noc. Dyspnea, Edema, Lt Headedness, Other Objective-Cardiology Exam Last Set of Vital Signs Vital Signs 05/23/21 05/24/21 05/24/21 21:34 07:25 10:05 Temp 35.6 Pulse 64 Resp 31 B/P (MAP) 121/78 Pulse Ox 92 O2 Delivery High Flow N/C O2 Flow Rate 1.00 FiO2 40 I&O Intake and Output 05/24/21 00:00 Intake Total 150 ml Output Total 1475 ml Balance -1325 ml Intake Oral 150 ml Output Urine Total 1475 ml Drainage Total 0 ml General: Alert, Cooperative HEENT: Atraumatic Neck: Supple Heart: Other (Atrial fibrillation) Extremities: No Clubbing, No Cyanosis Skin: No Rashes Psych/Mental Status: Mental Status NL Results Lab Laboratory Tests 05/24/21 04:31 A/P-Cardiology Admission Diagnosis Acute respiratory failure COVID-19 pneumonia Atrial fibrillation Hypotension Assessment/Plan Status post acute respiratory failure secondary to COVID-19 pneumonia, currently on 3 L high flow, improving slowly. Paroxysmal atrial fibrillation, maintained on sotalol 120 twice daily, maintained on oral Cardizem and digoxin. Heart rate is better controlled. Continue to monitor History of Whipple procedure, having significant discharge with possible fistula, there is questionable fecal material, discussed with Dr. Borja, patient will require transfer to a tertiary care center. Hypertension, better controlled at this time. Continue to monitor Hyperlipidemia, monitor lipids. Diabetes mellitus, hyperglycemia, probably secondary to steroid, managed by primary care team TIAGO GILL MD May 24, 2021 10:32
--- NOTE | 2021-05-24 12:02 | Progress Note - Hospitalist ---
Subjective HPI/CC On Admission Date Seen by Provider: May 24, 2021 Time Seen by Provider: 08:50 Pt is a 61yoCM with a PMH of gallstone pancreatitis s/p whipple on chronic daily abx with abdominal drain in place who presented to the ER due to hypoxia. He was tested for COVID on 05/05 in preparation for an outpatient procedure and was found to be positive. A couple of days later he became symptomatic. He is unvaccinated against COVID19. He called EMS yesterday and was found to be hypoxic in the 60-70s. He was placed on a NRB and brought to the ER. He was admitted to the ICU here after attempts t transfer were exhausted due to reg ional diversion. This morning he reports breathing easier but is still on BiPAP. Subjective/Events-last exam He has no complaints or concerns. He denies pain. He denies shortness of breath. Objective Exam Vital Signs Vital Signs Date Time Temp Pulse Resp B/P (MAP) Pulse Ox O2 Delivery O2 Flow Rate FiO2 05/25/21 12:44 35.4 50 22 116/80 94 Nasal Cannula 1.00 05/24/21 18:55 24 Capillary Refill : Less Than 3 Seconds General Appearance: No Apparent Distress, Chronically ill Respiratory: Lungs Clear, Normal Breath Sounds, No Respiratory Distress Cardiovascular: Regular Rate, Rhythm, No Edema, No Murmur Gastrointestinal: Normal Bowel Sounds, Non Tender, Soft, Other (fistula) Extremity: Normal Inspection, Non Tender, No Pedal Edema Neurologic/Psychiatric: Alert, Depressed Affect Skin: Normal Color, Warm/Dry Results/Procedures Lab Laboratory Tests 05/25/21 04:25 Patient resulted labs reviewed. Imaging: Reviewed Imaging Report Assessment/Plan Assessment and Plan Assess & Plan/Chief Complaint Acute respiratory failure due to COVID-19 [place] Home oxygen study tomorrow Fistula s/p Whipple Surgery consulted, appreciate assistance Spoke with Dr. Rodrigues, hepatobiliary surgery [facility], recommended continuing oral diet and following up next week Continue Merrem and Eraxis AFib Cardiology following, appreciate assistance Continue current meds Diagnosis/Problems Diagnosis/Problems (1) COVID-19 Status: Acute (2) Respiratory failure Status: Acute Qualifiers: Chronicity: acute Respiratory failure complication: hypoxia Qualified Codes: J96.01 - Acute respiratory failure with hypoxia (3) H/O Whipple procedure Status: Chronic (4) Fistula Status: Acute TERE ROMEO MD May 24, 2021 12:02
--- NOTE | 2021-05-24 14:01 | Physical Therapy Daily Note ---
PT Daily Note-Current Subjective Patient in bed pre tx, agrees to PT, has no complaints of pain. Appearance Patient in recliner post tx with nurse call, phone, tray, all needs met. Mental Status Patient Orientation: Person, Place, Situation Attachments: Oxygen, Perea Catheter, IV Transfers SCALE: Activities may be completed with or without assistive devices. 2-Bsvojsekca-opqsura completes the activity by him/herself with no assistance from a helper. 5-Set-up or Clean-up Assistance-helper sets up or cleans up; patient completes activity. [place] assists only prior to or following the activity. 4-Supervision or Touching Assistance-helper provides verbal cues and/or touching/steadying and/or contact guard assistance as patient completes ac tivity. Assistance may be provided throughout the activity or intermittently. 3-Partial/Moderate Assistance-helper does LESS THAN HALF the effort. [place] lifts, holds or supports trunk or limbs, but provides less than half the effort. 2-Substantial/Maximal Assistance-helper does MORE THAN HALF the effort. [place] lifts or holds trunk or limbs and provides more than half the effort. 6-Mhdeylita-wmzqgv does ALL the effort. Patient does none of the effort to complete the activity. Or, the assistance of 2 or more helpers is required for the patient to complete the activity. If activity was not attempted, code reason: 7-Patient Refused. 9-Not Applicable-not attempted and the patient did not perform the activity before the current illness, exacerbation or injury. 10-Not Attempted due to Environmental Limitations-(lack of equipment, weather restraints, etc.). 88-Not Attempted due to Medical Conditions or Safety Concerns. Roll Left & Right (QC): 6 Lying to Sitting/Side of Bed(Q: 3 Sit to Stand (QC): 3 Chair/Kjj-mt-Aejsq Xfer(QC): 3 Gait Training Distance: 3' Gait Persons Needed: 1 Gait Assistive Device: Handheld Assist Patient ambulates a few feet from the bed to the recliner holding onto bedrail and armrest to keep balance, patient is very fatigued after sitting down Exercises Seated Therapy Exercises: Ankle pumps, Long arc quads Seated Reps: 20 Treatments bed mobility and transfers, ambulation, LE strengthening, Assessment Current Status: Fair Progress Patient O2 stays above 90% during tx PT Short Term Goals Short Term Goals Time Frame: May 27, 2021 Roll Left & Right: 5 Sit to lyin Lying to sitting on side of be: 5 Sit to stand: 5 Chair/oqx-ni-hpzmt transfer: 5 Toilet transfer: 5 Car transfer: 5 Walk 10 feet: 5 Walk 50 feet with two turns: 5 Walk 150 feet: 5 Walking 10ft on uneven surface: 5 1 step (curb): 5 4 steps: 5 12 steps: 5 PT Chcf Goals Airline Captain Goals PT Airline Captain Goals Time Frame: Jun 03, 2021 Roll Left & Right (QC): 6 Sit to Lying (QC): 6 Lying-Sitting on Side/Bed(QC): 6 Sit to Stand (QC): 6 Chair/Xml-wp-Pjnfv Xfer(QC): 6 Toilet Transfer (QC): 6 Car Transfer (QC): 6 Does the Patient Walk: No and Walking Goal IS indicated Walk 10 feet (QC): 6 Walk 50ft with 2 Turns (QC): 6 Walk 150 ft (QC): 6 Walking 10ft on Uneven Surface: 6 1 Step (curb) (QC): 6 4 Steps (QC): 6 12 Steps (QC): 6 Picking up an Object (QC): 6 PT Plan Problem List Problem List: Activity Tolerance, Functional Strength, Safety, Balance, Gait, Transfer, Bed Mobility, ROM Treatment/Plan Treatment Plan: Continue Plan of Care Treatment Plan: Bed Mobility, Functional Activity Demi, Functional Strength, Gait, Safety, Therapeutic Exercise, Transfers Treatment Duration: Jun 03, 2021 Frequency: 11 times per week Safety Risks/Education Patient Education: Gait Training, Transfer Techniques, Correct Positioning, Safety Issues Teaching Recipient: Patient Teaching Methods: Demonstration, Discussion Response to Teaching: Reinforcement Needed Time/GCodes Time In: 1320 Time Out: 1332 Total Billed Treatment Time: 12 Total Billed Treatment 1 visit FA SHOSHANA TRINIDAD PT May 24, 2021 14:01
[2021-05-24] MEDS ORDERED: SODIUM ACETATE IV SCH ×22 (17:00)
[2021-05-24] MEDS ORDERED: SODIUM CHLORIDE IV SCH ×22 (17:00)
[2021-05-24] MEDS ORDERED: [UNRECOGNIZED DRUG - OTHER] IV SCH ×11 (17:00)
[2021-05-24] MEDS ORDERED: [UNRECOGNIZED DRUG - OTHER] IV SCH ×11 (17:00)
[2021-05-24] MEDS: ANIDULAFUNGIN 100 MG/NS 100 ML IV SCH ×2 (19:54)
[2021-05-25 04:42] LABS: BASOPHILS % (AUTO) 0 % (0-10); EOSINOPHILS % (AUTO) 0 % (0-10); HEMATOCRIT 34 % (40-54); HEMOGLOBIN 10.8 g/dL (13.3-17.7); LYMPHOCYTES # (AUTO) 0.4 10^3/uL (1.0-4.0); LYMPHOCYTES % (AUTO) 3 % (12-44); MEAN CORPUSCULAR HEMOGLOBIN 28 pg (25-34); MEAN CORPUSCULAR HGB CONC 32 g/dL (32-36); MEAN CORPUSCULAR VOLUME 88 fL (80-99); MEAN PLATELET VOLUME 11.6 fL (9.0-12.2); MONOCYTES # (AUTO) 1.5 10^3/uL (0.0-1.0); MONOCYTES % (AUTO) 11 % (0-12); NEUTROPHILS % (AUTO) 85 % (42-75); PLATELET COUNT 507 10^3/uL (130-400); WHITE BLOOD COUNT 14.1 10^3/uL (4.3-11.0)
[2021-05-25 05:08] LABS: CALCIUM 8.7 MG/DL (8.5-10.1); CREATININE SERUM 0.64 MG/DL (0.60-1.30); MAGNESIUM 2.4 MG/DL (1.6-2.4); PHOSPHORUS 2.8 MG/DL (2.3-4.7); POTASSIUM 5.1 MMOL/L (3.6-5.0)
[2021-05-25] MEDS: CATHETER FLUSH 10 ML SYR IV SCH ×3 (05:08→20:57)
[2021-05-25] MEDS: POTASSIUM CL 10MEQ/50ML IVPB 50 ML IV SCH (05:09)
[2021-05-25] MEDS: KCL 20 MEQ TAB (K-DUR) PO SCH (05:09)
[2021-05-25] MEDS: inSUlin ASPART (NovoLOG) 1 UNIT/0.01 ML (CHARGE PER UNIT) SC SCH ×4 (05:09→21:16)
[2021-05-25] MEDS: MAGNESIUM 1 GM/100 ML IVPB 100 ML IV SCH (05:09)
[2021-05-25] MEDS: MEROPENEM 1,000 MG/SWFI 20 ML IV PUSH IV SCH ×6 (06:02→21:16)
[2021-05-25] MEDS: CYANOCOBALAMIN 1,000 MCG (VITAMIN B-12) TABLET PO SCH (06:02)
[2021-05-25] MEDS: OCTREOTIDE (FOR SQ USE) 100 MCG/ML VIAL (SandoSTATIN) SC SCH ×3 (06:02→21:17)
[2021-05-25] MEDS: RT-ALBUTEROL HFA 8.5 GM INHALER IH SCH ×2 (07:31→22:13)
--- NOTE | 2021-05-25 07:57 | Cardiology Progress Note ---
Subjective Date Seen by Provider: May 25, 2021 Time Seen by Provider: 07:54 Subjective/Events-last exam Patient is laying down in bed, having multiple long pauses while in atrial fibrillation, asymptomatic, still having shortness of breath Review of Systems General: No Chills, No Night Sweats; Fatigue, Malaise; No Appetite, No Other HEENT: No Head Aches, No Visual Changes, No Eye Pain, No Ear Pain, No Dysphasia, No Sinus Congestion, No Post Nasal Drip, No Sore Throat, No Other Pulmonary: Dyspnea; No Cough, No Pleuritic Chest Pain, No Other Cardiovascular: No: Chest Pain, Palpitations, Orthopnea, Paroxysmal Noc. Dyspne a, Edema, Lt Headedness, Other Objective-Cardiology Exam Last Set of Vital Signs Vital Signs 05/24/21 05/25/21 05/25/21 18:55 04:22 07:31 Temp 35.6 Pulse 60 Resp 17 B/P (MAP) 124/90 Pulse Ox 91 O2 Delivery High Flow N/C O2 Flow Rate 1.00 FiO2 24 I&O Intake and Output 05/25/21 00:00 Intake Total 75 ml Output Total 1665 ml Balance -1590 ml Intake Oral 75 ml Output Urine Total 1665 ml General: Alert, Cooperative HEENT: Atraumatic Neck: Supple Heart: Other (Atrial fibrillation) Extremities: No Clubbing, No Cyanosis Skin: No Rashes Psych/Mental Status: Mental Status NL Results Lab Laboratory Tests 05/25/21 04:25 A/P-Cardiology Admission Diagnosis Acute respiratory failure COVID-19 pneumonia Atrial fibrillation Hypotension Assessment/Plan Status post acute respiratory failure secondary to COVID-19 pneumonia, currently on 3 L high flow, improving slowly. Paroxysmal atrial fibrillation, started to have multiple long pauses yesterday while in atrial fibrillation, I held digoxin and Cardizem, still having multiple long pauses, I will hold sotalol 120 mg today and start sotalol 80 mg in the evening and monitor tolerance and response History of Whipple procedure, having significant discharge with fistula, there is questionable fecal material, discussed with Dr. Borja, patient will require transfer to a tertiary care center. Hypertension, better controlled at this time. Continue to monitor Hyperlipidemia, monitor lipids. Diabetes mellitus, hyperglycemia, probably secondary to steroid, managed by primary care team TIAGO GILL MD May 25, 2021 07:57
[2021-05-25] MEDS: APIXABAN 5 MG (ELIQUIS) TABLET PO SCH ×2 (09:28→19:50)
[2021-05-25] MEDS: dexAMETHasone 6 MG TAB (DECADRON) PO SCH (09:28)
[2021-05-25] MEDS: ASPIRIN E.C. 81 MG (ECOTRIN) TAB PO SCH (09:28)
[2021-05-25] MEDS: PYRIDOXINE (VITAMIN B-6) 50 MG TABLET PO SCH (09:28)
--- NOTE | 2021-05-25 10:09 | Physical Therapy Daily Note ---
PT Daily Note-Current Subjective Patient in bed pre tx, agrees to PT reluctantly, has no complaints of pain. Appearance Patient in recliner post tx with nurse call, phone, tray, all needs met. Mental Status Patient Orientation: Person, Place, Situation Attachments: Oxygen, Drains, [place] Catheter, IV Transfers SCALE: Activities may be completed with or without assistive devices. 2-Xsepnfqsaa-brujdcl completes the activity by him/herself with no assistance from a helper. 5-Set-up or Clean-up Assistance-helper sets up or cleans up; patient completes activity. [place] assists only prior to or following the activity. 4-Supervision or Touching Assistance-helper provides verbal cues and/or touching/steadying and/or contact guard assistance as patient completes activity. Assistance may be provided throughout the activity or intermittently. 3-Partial/Moderate Assistance-helper does LESS THAN HALF the effort. [place] lifts, holds or supports trunk or limbs, but provides less than half the effort. 2-Substantial/Maximal Assistance-helper does MORE THAN HALF the effort. [place] lifts or holds trunk or limbs and provides more than half the effort. 2-Zlahvyiwz-pzgsph does ALL the effort. Patient does none of the effort to complete the activity. Or, the assistance of 2 or more helpers is required for the patient to complete the activity. If activity was not attempted, code reason: 7-Patient Refused. 9-Not Applicable-not attempted and the patient did not perform the activity before the current illness, exacerbation or injury. 10-Not Attempted due to Environmental Limitations-(lack of equipment, weather restraints, etc.). 88-Not Attempted due to Medical Conditions or Safety Concerns. Roll Left & Right (QC): 6 Lying to Sitting/Side of Bed(Q: 3 Sit to Stand (QC): 3 Chair/Cfo-vt-Ablnq Xfer(QC): 4 Gait Training Distance: 5' Gait Persons Needed: 1 Gait Assistive Device: FWW CGA, much more steady using walker Exercises Seated Therapy Exercises: Ankle pumps, Long arc quads Seated Reps: 20 Treatments bed mobility and transfers, ambulation, LE exercise Assessment Current Status: Fair Progress improved stability using rolling walker, patient very tired this morning, hard to motivate PT Short Term Goals Short Term Goals Time Frame: May 27, 2021 Roll Left & Right: 5 Sit to lyin Lying to sitting on side of be: 5 Sit to stand: 5 Chair/mdg-jv-slcxh transfer: 5 Toilet transfer: 5 Car transfer: 5 Walk 10 feet: 5 Walk 50 feet with two turns: 5 Walk 150 feet: 5 Walking 10ft on uneven surface: 5 1 step (curb): 5 4 steps: 5 12 steps: 5 PT Goodwill Representative Goals Goodwill Representative Goals PT Assisted Goals Time Frame: Jun 03, 2021 Roll Left & Right (QC): 6 Sit to Lying (QC): 6 Lying-Sitting on Side/Bed(QC): 6 Sit to Stand (QC): 6 Chair/Iwq-su-Nawdo Xfer(QC): 6 Toilet Transfer (QC): 6 Car Transfer (QC): 6 Does the Patient Walk: No and Walking Goal IS indicated Walk 10 feet (QC): 6 Walk 50ft with 2 Turns (QC): 6 Walk 150 ft (QC): 6 Walking 10ft on Uneven Surface: 6 1 Step (curb) (QC): 6 4 Steps (QC): 6 12 Steps (QC): 6 Picking up an Object (QC): 6 PT Plan Problem List Problem List: Activity Tolerance, Functional Strength, Safety, Balance, Gait, Transfer, Bed Mobility, ROM Treatment/Plan Treatment Plan: Continue Plan of Care Treatment Plan: Bed Mobility, Functional Activity Demi, Functional Strength, Gait, Safety, Therapeutic Exercise, Transfers Treatment Duration: Jun 03, 2021 Frequency: 11 times per week Safety Risks/Education Patient Education: Gait Training, Transfer Techniques, Correct Positioning, Safety Issues Teaching Recipient: Patient Teaching Methods: Demonstration, Discussion Response to Teaching: Reinforcement Needed Time/GCodes Time In: 935 Time Out: 947 Total Billed Treatment Time: 12 Total Billed Treatment 1 visit FA 12SHOSHANA VILLALBA PT May 25, 2021 10:09
[2021-05-25] MEDS ORDERED: LINE600I8 IV (11:50)
[2021-05-25] MEDS: LINEZOLID IVPB 300 ML IV SCH ×2 (12:39→19:50)
--- NOTE | 2021-05-25 13:54 | Progress Note - Hospitalist ---
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 He was tested for COVID on 05/05 in preparation for an outpatient procedure and was found to be positive. A couple of days later he became symptomatic. He is unvaccinated against COVID19. He called EMS yesterday and was found to be hypoxic in the 60-70s. He was placed on a NRB and brought to the ER. He was admitted to the ICU here after attempts t transfer were exhausted due to reg ional diversion. This morning he reports breathing easier but is still on BiPAP. Subjective/Events-last exam He is feeling about the same. He denies pain. He denies shortness of breath. He has no other complaints or concerns. Objective Exam Vital Signs Vital Signs Date Time Temp Pulse Resp B/P (MAP) Pulse Ox O2 Delivery O2 Flow Rate FiO2 05/25/21 12:44 35.4 50 22 116/80 94 Nasal Cannula 1.00 05/24/21 18:55 24 Capillary Refill : Less Than 3 Seconds General Appearance: No Apparent Distress, WD/WN Respiratory: Lungs Clear, Normal Breath Sounds, No Respiratory Distress Cardiovascular: Regular Rate, Rhythm, No Edema, No Murmur Gastrointestinal: Normal Bowel Sounds, Non Tender, Soft, Other (right upper quadrant fistula with ostomy bag) Extremity: Normal Inspection, Non Tender, No Pedal Edema Skin: Normal Color, Warm/Dry Results/Procedures Lab Laboratory Tests 05/25/21 04:25 Patient resulted labs reviewed. Imaging: Reviewed Imaging Report Assessment/Plan Assessment and Plan Assess & Plan/Chief Complaint Acute respiratory failure due to COVID-19 Stop Decadron Home oxygen study Out of isolation tonight Fistula s/p Whipple VRE infection Surgery consulted, appreciate assistance Spoke with Dr. Rodrigues, hepatobiliary surgery [facility], recommended continuing oral diet and following up next week Continue Merrem and Eraxis Add Zyvox for VRE AFib Bradycardia Cardiology following, appreciate assistance Holding rate control meds, resuming this evening Continue Eliquis Diagnosis/Problems Diagnosis/Problems (1) COVID-19 Status: Acute (2) Respiratory failure Status: Acute Qualifiers: Chronicity: acute Respiratory failure complication: hypoxia Qualified Codes: J96.01 - Acute respiratory failure with hypoxia (3) H/O Whipple procedure Status: Chronic (4) Fistula Status: Acute TERE ROMEO MD May 25, 2021 13:54
--- NOTE | 2021-05-25 15:47 | Occupational Therapy Eval ---
OT Evaluation-General/PLF Medical Diagnosis Admission Date May 15, 2021 at 18:17 Medical Diagnosis: Covid Onset Date: May 15, 2021 Therapy Diagnosis Therapy Diagnosis: decreased ADL status Precautions Precautions/Isolations: Airborne Isolation, Fall Prevention Referral Physician: Sherry Referral Reason: Evaluation/Treatment Medical History Pertinent Medical History: CABG, DM, HTN Additional Medical History pancreatitis s/p whipple Current History ED due to hypoxia Social History Current Living Status: Significant Other ADL-Prior Level of Function SCALE: Activities may be completed with or without assistive devices. 6-Xsxkrgxyxg-jstmunm completes the activity by him/herself with no assistance from a helper. 5-Set-up or Clean-up Assistance-helper sets up or cleans up; patient completes a ctivity. [place] assists only prior to or following the activity. 4-Supervision or Touching Assistance-helper provides verbal cues and/or touching/steadying and/or contact guard assistance as patient completes activity. Assistance may be provided throughout the activity or intermittently. 3-Partial/Moderate Assistance-helper does LESS THAN HALF the effort. [place] lifts, holds or supports trunk or limbs, but provides less than half the effort. 2-Substantial/Maximal Assistance-helper does MORE THAN HALF the effort. [place] lifts or holds trunk or limbs and provides more than half the effort. 3-Xzmmacwvn-zkfypv does ALL the effort. Patient does none of the effort to complete the activity. Or, the assistance of 2 or more helpers is required for the patient to complete the activity. If activity was not attempted, code reason: 7-Patient Refused. 9-Not Applicable-not attempted and the patient did not perform the activity before the current illness, exacerbation or injury. 10-Not Attempted due to Environmental Limitations-(lack of equipment, weather restraints, etc.). 88-Not Attempted due to Medical Conditions or Safety Concerns. ADL PLOF Comments IND with all ADLs and functional mobility, uses walker or cane based on where he is going and what he is doing. Self Care: Independent Functional Cognition: Independent OT Current Status Subjective Pt up in recliner, agreeable to OT tx. Mental Status/Objective Patient Orientation: Person, Place, Situation Attachments: Oxygen Current Upper Extremity ROM WFL, BUE shoulder flexion to approx 150 degrees Upper Extremity Coordination WFL Upper Extremity Sensation WFL Upper Extremity Strength grossly 3+/5 ADL-Treatment Eating (QC): 6 (per pt report) Oral Hygiene (QC): 5 (based on clincial judgement and pt report) On/Off Footwear (QC): 6 (IND) Other Treatments Pt seated in recliner, OT educated pt on purpose and benefit of OT, he verbalized understanding. Pt provided information about PLOF and home set up, and participated in UE screen. Pt able to doff/don gripper socks independently. Pt requests to stay up in recliner at this time. In order to increase BUE Strength and activity tolerance, tp completed x10 reps each of the following BUE exercises: shoulder flexion, elbow flexion, elbow extension. Pt instructed to complete 2-3 times a day, increasing reps as tolerated. Post tx, pt up in recliner, call light in reach and all needs met. Education OT Patient Education: Correct positioning, Energy conservation, Exercise program, Modified ADL techniques, Progress toward Goal/Update tx plan, Purpose of tx/functional activities, Rehab process Teaching Recipient: Patient Teaching Methods: Discussion Response to Teaching: Verbalize Understanding OT Skilled Nursing Goals Manager Collection Goals Time Frame: Jun 02, 2021 Eating (QC): 6 Oral Hygiene (QC): 6 Toileting Hygiene (QC): 6 Shower/Bathe Self (QC): 6 Upper Body Dressing (QC): 6 Lower Body Dressing (QC): 6 On/Off Footwear (QC): 6 Additional Goals: 1-Demonstrate ADL Tasks, 2-Verbalize Understanding, 3-ImproveStrength/Demi 1=Demonstrate adherence to instructed precautions during ADL tasks. 2=Patient will verbalize/demonstrate understanding of assistive devices/modifications for ADL. 3=Patient will improve strength/tolerance for activity to enable patient to perform ADL's. OT Education/Plan Problem List/Assessment Assessment: Decreased Activ Tolerance, Decreased UE Strength, Impaired I ADL's, Impaired Self-Care Skills Discharge Recommendations Plan/Recommendations: Continue POC Treatment Plan/Plan of Care Patient would benefit from OT for education, treatment and training to promote independence in ADL's, mobility, safety and/or upper extremity function for ADL's. Plan of Care: ADL Retraining, Functional Mobility, UE Funct Exercise/Act Treatment Duration: Jun 02, 2021 Frequency: 5 times per week Estimated Hrs Per Day: .25 hour per day Rehab Potential: Good Time/GCodes Start Time: 15:05 Stop Time: 15:15 Total Time Billed (hr/min): 10 Billed Treatment Time 1, YU ORANTES OT May 25, 2021 15:47
[2021-05-25] MEDS: ANIDULAFUNGIN 100 MG/NS 100 ML IV SCH ×2 (19:49)
[2021-05-25] MEDS: SOTALOL 80 MG (BETAPACE) TAB PO SCH (19:50)
[2021-05-26 04:24] LABS: BASOPHILS % (AUTO) 0 % (0-10); EOSINOPHILS % (AUTO) 0 % (0-10); MEAN PLATELET VOLUME 11.3 fL (9.0-12.2)
[2021-05-26 04:26] LABS: HEMATOCRIT 39 % (40-54); HEMOGLOBIN 12.7 g/dL (13.3-17.7); LYMPHOCYTES # (AUTO) 0.8 10^3/uL (1.0-4.0); LYMPHOCYTES % (AUTO) 4 % (12-44); MEAN CORPUSCULAR HEMOGLOBIN 28 pg (25-34); MEAN CORPUSCULAR HGB CONC 33 g/dL (32-36); MEAN CORPUSCULAR VOLUME 87 fL (80-99); MONOCYTES # (AUTO) 3.1 10^3/uL (0.0-1.0); MONOCYTES % (AUTO) 14 % (0-12); NEUTROPHILS % (AUTO) 80 % (42-75); PLATELET COUNT 502 10^3/uL (130-400); WHITE BLOOD COUNT 21.1 10^3/uL (4.3-11.0)
[2021-05-26 04:33] LABS: POTASSIUM 5.1 MMOL/L (3.6-5.0)
[2021-05-26 04:34] LABS: CALCIUM 9.3 MG/DL (8.5-10.1)
[2021-05-26 04:38] LABS: PHOSPHORUS 2.7 MG/DL (2.3-4.7)
[2021-05-26 04:39] LABS: CREATININE SERUM 0.81 MG/DL (0.60-1.30)
[2021-05-26 04:41] LABS: MAGNESIUM 2.3 MG/DL (1.6-2.4)
[2021-05-26] MEDS ORDERED: DEXTROSE 50% 50 ML (IMS) SYR ONE (04:46)
[2021-05-26] MEDS ORDERED: DEXTROSE 50% 50 ML (IMS) SYR IV ONE (05:00)
[2021-05-26] MEDS: MAGNESIUM 1 GM/100 ML IVPB 100 ML IV SCH (05:39)
[2021-05-26] MEDS: CATHETER FLUSH 10 ML SYR IV SCH ×3 (05:39→21:21)
[2021-05-26] MEDS: POTASSIUM CL 10MEQ/50ML IVPB 50 ML IV SCH (05:39)
[2021-05-26] MEDS: KCL 20 MEQ TAB (K-DUR) PO SCH (05:40)
[2021-05-26] MEDS: inSUlin ASPART (NovoLOG) 1 UNIT/0.01 ML (CHARGE PER UNIT) SC SCH ×2 (05:40→13:57)
[2021-05-26] MEDS: OCTREOTIDE (FOR SQ USE) 100 MCG/ML VIAL (SandoSTATIN) SC SCH ×3 (05:57→21:32)
[2021-05-26] MEDS: MEROPENEM 1,000 MG/SWFI 20 ML IV PUSH IV SCH ×6 (05:57→21:16)
[2021-05-26] MEDS: CYANOCOBALAMIN 1,000 MCG (VITAMIN B-12) TABLET PO SCH (05:58)
[2021-05-26] MEDS: RT-ALBUTEROL HFA 8.5 GM INHALER IH SCH ×2 (08:13→18:37)
--- NOTE | 2021-05-26 09:48 | Progress Note - Cardiology ---
Cardiology SOAP Progress Note Subjective: He has not been reporting any symptoms of shortness of breath or palp or syncope or cp Objective: I&O/Vital Signs 05/25/21 05/26/21 05/26/21 05/26/21 22:13 00:37 01:00 04:05 Temp 36.0 35.8 Pulse 60 62 73 Resp 20 16 B/P (MAP) 113/63 162/87 Pulse Ox 95 94 96 O2 Delivery High Flow N/C Nasal Cannula Nasal Cannula O2 Flow Rate 1.00 1.00 1.00 05/26/21 05/26/21 05/26/21 05/26/21 06:04 07:00 08:00 08:14 Pulse 67 67 Resp 17 B/P (MAP) 130/92 O2 Delivery Nasal Cannula Nasal Cannula O2 Flow Rate 1.00 1.00 05/26/21 08:44 Temp 34.8 O2 Delivery Nasal Cannula O2 Flow Rate 1.00 05/25/21 23:59 Intake Total 1355 ml Output Total 725 ml Balance 630 ml Constitutional: other (I did not examine the patient because of COVID+ status. I reviewed his record, discussed his case with his care providers during this hospitalization (including Dr Waddell and Dr Powell). His vital signs are stable) Results/Procedures: Labs Laboratory Tests 05/25/21 09:56: Glucometer 183H 05/25/21 12:35: Glucometer 172H 05/25/21 15:34: Glucometer 423*H 05/25/21 15:36: Glucometer 400*H 05/25/21 20:33: Glucometer 418*H 05/26/21 00:35: Glucometer 234H 05/26/21 04:15: White Blood Count 21.1H, Red Blood Count 4.49, Hemoglobin 12.7L, Hematocrit 39L, Mean Corpuscular Volume 87, Mean Corpuscular Hemoglobin 28, Mean Corpuscular Hemoglobin Concent 33, Red Cell Distribution Width 15.8H, Platelet Count 502H, Mean Platelet Volume 11.3, Immature Granulocyte % (Auto) 2, Neutrophils (%) (Auto) 80H, Lymphocytes (%) (Auto) 4L, Monocytes (%) (Auto) 14H, Eosinophils (%) (Auto) 0, Basophils (%) (Auto) 0, Neutrophils # (Auto) 17.0H, Lymphocytes # (Auto) 0.8L, Monocytes # (Auto) 3.1H, Eosinophils # (Auto) 0.0, Basophils # (Auto) 0.0, Immature Granulocyte # (Auto) 0.3H, Percent Immature Platelet Fraction 12.4H, Sodium Level 135, Potassium Level 5.1H, Chloride Level 98, Carbon Dioxide Level 28, Anion Gap 9, Blood Urea Nitrogen 35H, Creatinine 0.81, Estimat Glomerular Filtration Rate 97, BUN/Creatinine Ratio 43, Glucose Level 53*L, Calcium Level 9.3, Phosphorus Level 2.7, Magnesium Level 2.3 05/26/21 04:45: Glucometer 45*L 05/26/21 05:56: Glucometer 144H Microbiology 05/21/21 Gram Stain - Final, Complete 05/21/21 Wound Culture - Final, Complete Enterococcus faecium YEAST 05/21/21 Blood Culture - Preliminary, Resulted No growth 05/17/21 MRSA Screen - Final, Complete MRSA not isolated Laboratory Tests 05/25/21 04:25 05/26/21 04:15 Physician Assessment Physician Assessment Persistent A Fib. Had been experiencing bradycardia; now off dilt and dig; dose of sotalol has been reduced. Currently not experiencing any significant pauly. On stroke prophylaxis with apixaban. Ok for discharge/transfer from cardiac standpoint. Has outpt f/u care with his deck supervisor. Discussed with Dr Powell Status post acute respiratory failure secondary to COVID-19 pneumonia, managed by the Hospitalist service History of Whipple procedure, having significant discharge with fistula, managed by the Surgical svce, patient will need definitive care a tertiary care center. Hypertension, better controlled at this time. Continue to monitor Hyperlipidemia, monitor lipids. Diabetes mellitus, hyperglycemia, probably secondary to steroid, managed by [facility] Care team VINNY CAVAZOS MD FACP FAC CCDS May 26, 2021 09:48
--- NOTE | 2021-05-26 09:50 | Tele-ICU Progress Note ---
Subjective Date Seen by a Provider: May 25, 2021 Time Seen by a Provider: 09:56 Sepsis Event Evaluation Height, Weight, BMI Height: '" Weight: lbs. oz. kg; 32.80 BMI Method: Exam Exam Patient acknowledged, consented, and participated in this virtual visit which was conducted using real time audio/video Vital Signs Date Time Temp Pulse Resp B/P (MAP) Pulse Ox O2 Delivery O2 Flow Rate FiO2 05/26/21 08:44 34.8 Nasal Cannula 1.00 05/26/21 08:14 Nasal Cannula 1.00 05/26/21 08:00 67 17 Nasal Cannula 1.00 05/26/21 07:00 67 05/26/21 06:04 130/92 05/26/21 04:05 35.8 73 16 162/87 96 Nasal Cannula 1.00 05/26/21 01:00 62 05/26/21 00:37 36.0 60 20 113/63 94 Nasal Cannula 1.00 05/25/21 22:13 95 High Flow N/C 1.00 05/25/21 20:03 36.7 97 18 114/69 94 Nasal Cannula 1.00 05/25/21 20:00 Nasal Cannula 1.00 05/25/21 19:00 68 05/25/21 16:14 92 1.00 05/25/21 16:00 62 21 124/90 86 Nasal Cannula 1.00 05/25/21 15:48 35.8 05/25/21 13:00 57 05/25/21 12:44 35.4 50 22 116/80 94 Nasal Cannula 1.00 05/25/21 12:00 Nasal Cannula 1.00 I & O 05/26/21 07:00 Intake Total 1405 ml Output Total 1550 ml Balance -145 ml Height & Weight Height: '" Weight: lbs. oz. kg; 32.80 BMI Method: General Appearance: No Apparent Distress, Chronically ill HEENT: PERRL/EOMI, Moist Mucous Membranes; No Scleral Icterus (L), No Scleral Icterus (R) Respiratory: Lungs Clear, Normal Breath Sounds, No Respiratory Distress Cardiovascular: Regular Rate, Rhythm, No Edema, No Murmur Capillary Refill: Less Than 3 Seconds Gastrointestinal: non tender, soft, no organomegaly, other (fistula with defi nite fecal contents) Extremity: Normal Inspection, Non Tender, No Pedal Edema Neurologic/Psychiatric: Alert, Depressed Affect Skin: Normal Color, Warm/Dry Results Lab Laboratory Tests 05/25/21 04:25 05/26/21 04:15 Assessment/Plan Assessment/Plan (Tele-ICU Physician , Progress Note ) Available chart/ vitals / labs / Images reviewed Video assessment done using teleICU camera, rest of exam as per RN Discussed with RN Events overnight : multiple long pauses while in atrial fibrillation, asymptomatic Afebrile I/O = pos 800 Drips: Pressors: , hemodynamically stable EXAM PER RN Consultants: Hospital course: 05/16 - ARF 05/17 - vapotherm 40L 90% 05/18-vapotherm 35L 80 % 05/22 - 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 at home NPO - MIGHT NEED TPN _ FOLLOW SX RECOM Lines : PICC on right ( presented onadmission - ? date placement ) (Central Line Necessity Reviewed) [place]: 05/16 OG: Nutrition: npo Analgesia: Anxiety/ delirium VTE Prophylaxis: eliquis Stress Ulcer Prophylaxis: PPI Glycemic Control: Plans in collaboration with bedside consultants and IM MDs. Discussed with RN to reach out if any questions or concerns A total of 36 minutes of critical care time was devoted to this patient today, required to treat and/or prevent further deterioration of critical care conditi on ( as above) . CHELY MURPHY MD May 26, 2021 09:50
[2021-05-26] MEDS: ASPIRIN E.C. 81 MG (ECOTRIN) TAB PO SCH (09:52)
[2021-05-26] MEDS: SOTALOL 80 MG (BETAPACE) TAB PO SCH ×2 (09:52→21:16)
[2021-05-26] MEDS: PYRIDOXINE (VITAMIN B-6) 50 MG TABLET PO SCH (09:52)
[2021-05-26] MEDS: APIXABAN 5 MG (ELIQUIS) TABLET PO SCH ×2 (09:52→21:16)
[2021-05-26] MEDS: LINEZOLID IVPB 300 ML IV SCH ×2 (09:52→21:16)
--- NOTE | 2021-05-26 12:27 | Occ Therapy Progress Note ---
Therapy Progress Note Pt laying in bed upon OT entry. Pt states he is tired and has a slight stomach ache. OT encouraged pt up to chair or UE exercises in order to increase strength/activity tolerance. Pt declined, stating he would like to rest today. OT educated pt on purpose and benefit of UE exercise, but he still declined OT tx today. OT will attempt tx again next available date. 1, refusal 1153 YU POLANCO OT May 26, 2021 12:27
--- NOTE | 2021-05-26 12:55 | Physical Therapy Progress Note ---
Therapy Progress Note Patient refused PT today. Patient educated on the benefits of therapy and he continues to refuse, stating he just doesn't want to do it and wants to rest today. Will check back tomorrow. SHOSHANA STOCKTON PT May 26, 2021 12:55
--- NOTE | 2021-05-26 14:58 | Progress Note - Hospitalist ---
Subjective HPI/CC On Admission Date Seen by Provider: May 26, 2021 Time Seen by Provider: 09:20 Pt is a 61yoCM with a PMH of gallstone pancreatitis s/p whipple on chronic daily abx with abdominal drain in place who presented to the ER due to hypoxia. He was tested for COVID on 05/05 in preparation for an outpatient procedure and was found to be positive. A couple of days later he became symptomatic. He is unvaccinated against COVID19. He called EMS yesterday and was found to be hypoxic in the 60-70s. He was placed on a NRB and brought to the ER. He was admitted to the ICU here after attempts t transfer were exhausted due to reg ional diversion. This morning he reports breathing easier but is still on BiPAP. Subjective/Events-last exam He is feeling ok today. He denies pain. He denies trouble breathing. Objective Exam Vital Signs Vital Signs Date Time Temp Pulse Resp B/P (MAP) Pulse Ox O2 Delivery O2 Flow Rate FiO2 05/26/21 12:42 68 05/26/21 12:00 36.9 05/26/21 12:00 17 133/87 Nasal Cannula 1.00 05/26/21 04:05 96 05/24/21 18:55 24 Capillary Refill : Less Than 3 Seconds General Appearance: No Apparent Distress, WD/WN Respiratory: Lungs Clear, Normal Breath Sounds, No Respiratory Distress Cardiovascular: Regular Rate, Rhythm, No Edema, No Murmur Gastrointestinal: Normal Bowel Sounds, Soft, Other (fistula with ostomy bag and fecal material) Extremity: Normal Inspection, Non Tender, No Pedal Edema Neurologic/Psychiatric: Alert, Oriented x3, No Motor/Sensory Deficits, Normal Mood/Affect Skin: Normal Color, Warm/Dry Results/Procedures Lab Laboratory Tests 05/26/21 04:15 Patient resulted labs reviewed. Imaging: Reviewed Imaging Report Assessment/Plan Assessment and Plan Assess & Plan/Chief Complaint Acute respiratory failure due to COVID-19 s/p steroids Remove isolation Fistula s/p Whipple Surgery consulted, appreciate assistance Fistula culture with VRE Zyvox added Continue Merrem and Eraxis With increasing WBC and VRE, recommended placing back on transfer list to [facility], awaiting bed availability AFib Cardiology following, appreciate assistance Sotalol decreased Diagnosis/Problems Diagnosis/Problems (1) COVID-19 Status: Acute (2) Respiratory failure Status: Acute Qualifiers: Chronicity: acute Respiratory failure complication: hypoxia Qualified Codes: J96.01 - Acute respiratory failure with hypoxia (3) H/O Whipple procedure Status: Chronic (4) Fistula Status: Acute (5) VRE infection (vancomycin resistant Enterococcus) Status: Acute TERE ROMEO MD May 26, 2021 14:58
[2021-05-26] MEDS ORDERED: inSUlin ASPART (NovoLOG) 1 UNIT/0.01 ML (CHARGE PER UNIT) SC SCH ×3 (15:00→21:00)
[2021-05-26] MEDS ORDERED: inSUlin ASPART (NovoLOG) 1 UNIT/0.01 ML (CHARGE PER UNIT) ONE (17:39)
--- NOTE | 2021-05-26 17:41 | Tele-ICU Progress Note ---
Subjective Date Seen by a Provider: May 26, 2021 Time Seen by a Provider: 17:36 Sepsis Event Evaluation Height, Weight, BMI Height: '" Weight: lbs. oz. kg; 32.80 BMI Method: Exam Exam Patient acknowledged, consented, and participated in this virtual visit which was conducted using real time audio/video Vital Signs Date Time Temp Pulse Resp B/P (MAP) Pulse Ox O2 Delivery O2 Flow Rate FiO2 05/26/21 16:41 36.5 05/26/21 12:42 68 05/26/21 12:37 67 05/26/21 12:00 36.9 05/26/21 12:00 73 17 133/87 Nasal Cannula 1.00 05/26/21 12:00 36.4 05/26/21 09:52 78 05/26/21 09:45 154/103 05/26/21 08:44 34.8 Nasal Cannula 1.00 05/26/21 08:14 Nasal Cannula 1.00 05/26/21 08:00 67 17 Nasal Cannula 1.00 05/26/21 08:00 Nasal Cannula 1.00 05/26/21 07:00 67 05/26/21 06:04 130/92 05/26/21 04:05 35.8 73 16 162/87 96 Nasal Cannula 1.00 05/26/21 01:00 62 05/26/21 00:37 36.0 60 20 113/63 94 Nasal Cannula 1.00 05/25/21 22:13 95 High Flow N/C 1.00 05/25/21 20:03 36.7 97 18 114/69 94 Nasal Cannula 1.00 05/25/21 20:00 Nasal Cannula 1.00 05/25/21 19:00 68 I & O 05/26/21 07:00 Intake Total 1405 ml Output Total 1550 ml Balance -145 ml Height & Weight Height: '" Weight: lbs. oz. kg; 32.80 BMI Method: General Appearance: No Apparent Distress, WD/WN HEENT: PERRL/EOMI, Moist Mucous Membranes; No Scleral Icterus (L), No Scleral Icterus (R) Respiratory: Lungs Clear, Normal Breath Sounds, No Respiratory Distress Cardiovascular: Regular Rate, Rhythm, No Edema, No Murmur Capillary Refill: Less Than 3 Seconds Gastrointestinal: non tender, soft, no organomegaly, other (fistula with definite fecal contents) Extremity: Normal Inspection, Non Tender, No Pedal Edema Neurologic/Psychiatric: Alert, Oriented x3, No Motor/Sensory Deficits, Normal Mood/Affect Skin: Normal Color, Warm/Dry Results Lab Laboratory Tests 05/25/21 04:25 05/26/21 04:15 Assessment/Plan Assessment/Plan (Tele-ICU Physician , Progress Note ) Available chart/ vitals / labs / Images reviewed Video assessment done using teleICU camera Events overnight : multiple long pauses while in atrial fibrillation, asymptomatic Afebrile I/O = pos 800 Drips: Pressors: , hemodynamically stable EXAM PER RN Consultants: sera KUNZ Hospital course: 05/16 - ARF 05/17 - vapotherm 40L 90% 05/18-vapotherm 35L 80 % 05/22 - 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, awaiting bed availability Hypoglycemia - with changing TPN - follow , as per PCP A fib - rate controlled , multiple long pauses while in atrial fibrillation, asymptomatic- meds adjusted by cards - at home on sotalol and metoprolol, amlodipine LEFT plural effusion ( Ct 05/16- - stable by cxr , no indication fot thora now Diabetes Mellitus - ISS , close f/up on steroids - PCP adjusting dose today Anemia - slow trend down , no active bleeding CRUZITO -CPAP ? at home Lines : PICC on right ( presented onadmission - ? date placement ) (Central Line Necessity Reviewed) [place]: 05/16 OG: Nutrition: npo Analgesia: Anxiety/ delirium VTE Prophylaxis: eliquis Stress Ulcer Prophylaxis: PPI Glycemic Control: A total of 36 minutes of critical care time was devoted to this patient today, required to treat and/or prevent further deterioration of critical care condition ( as above) . BEDSIDE RN IS NOT AVAILABLE TO DISCUSS PATIENT, A/P DONE BASED ON DATA ABAILABLE IN EMR AND VIDEO ASSESSMENT BY E-CAMERA. FINAL PLAN /DECISIONS ARE BY ROUNDING BEDSIDE PHYSICIANS CHELY MURPHY MD May 26, 2021 17:40
[2021-05-26] MEDS: ANIDULAFUNGIN 100 MG/NS 100 ML IV SCH ×2 (21:15)
== END 2021-05-26 23:14 | disposition short-term general hospital (02) | DRG 177 ==
LOC: EDUNIT# 12:42 → ER FS 12:43 → 4TH 18:17 → ICU 18:58
PROVIDERS: ADMIT Internal Medicine; ATTEND Internal Medicine
PROC: 5A09557 Assistance with Respiratory Ventilation, Greater than 96 Consecutive Hours, Continuous Positive Airway Pressure (ICD-10-PCS; principal; 2021-05-15)
DX: U07.1 COVID-19 (principal); J80 Acute respiratory distress syndrome; J12.82 Pneumonia due to coronavirus disease 2019; J90 Pleural effusion, not elsewhere classified; Z16.21 Resistance to vancomycin; D68.59 Other primary thrombophilia; E11.22 Type 2 diabetes mellitus with diabetic chronic kidney disease; I12.9 Hypertensive chronic kidney disease with stage 1 through stage 4 chronic kidney disease, or unspecified chronic kidney disease; E78.5 Hyperlipidemia, unspecified; D64.9 Anemia, unspecified; E11.649 Type 2 diabetes mellitus with hypoglycemia without coma; B95.61 Methicillin susceptible Staphylococcus aureus infection as the cause of diseases classified elsewhere; G47.33 Obstructive sleep apnea (adult) (pediatric); R00.1 Bradycardia, unspecified; E11.65 Type 2 diabetes mellitus with hyperglycemia; I25.10 Atherosclerotic heart disease of native coronary artery without angina pectoris; I48.0 Paroxysmal atrial fibrillation; T38.0X5A Adverse effect of glucocorticoids and synthetic analogues, initial encounter; Z73.0 Burn-out; Z87.891 Personal history of nicotine dependence; Z95.1 Presence of aortocoronary bypass graft; Z90.411 Acquired partial absence of pancreas; Z90.49 Acquired absence of other specified parts of digestive tract
CPT/HCPCS: 36415; 71045; 71275; 80048; 80053; 80162; 80202; 81000; 82274; 82728; 82805; 82947; 83605; 83615; 83735; 83880; 84100; 84145; 84478; 84484; 85007; 85025; 85027; 85379; 85610; 85730; 86141; 87040; 87070; 87077; 87081; 87186; 87205; 93005; 93041; 94640; 94660; 94761; 96374; 96375